=== PATIENT | female | born 1945 | race Caucasian/White ===

== ENCOUNTER → 2017-08-05 17:32 | Outpatient (CLI) | payer MEDICARE, SELFPAY ==
--- NOTE | 2017-08-05 17:35 | RAD_ITS ---
STUDY: X-RAY CHEST REASON FOR EXAM: Female, 71 years old. Cough TECHNIQUE: Frontal and lateral views COMPARISON: March 31, 2014 FINDINGS: The lungs are clear and expanded. There is no demonstrated pleural abnormality. Normal size heart. Normal mediastinum and pete. Normal visualized pulmonary arteries. Normal visualized aortic arch and descending thoracic aorta. Normal visualized thoracic spine. Normal visualized ribs, clavicles, and shoulders. There is no demonstrated abnormality of the visualized soft tissue structures of the upper abdomen. RAD/Chest PA and Lateral IMPRESSION: Normal x-ray examination of the chest. Electronically Signed: Rommel Salmeron DO at 18:33 EST Tel [phone], Service support ,
== END ==
PROVIDERS: Family Provider Internal Medicine; PCP Internal Medicine; Visit Provider Internal Medicine
DX: J18.1 Lobar pneumonia, unspecified organism (principal)
CPT/HCPCS: 71046

== ENCOUNTER → 2017-09-10 08:31 | Outpatient (CLI) | payer MEDICARE, SELFPAY ==
--- NOTE | 2017-09-10 08:35 | HPBI_ITS ---
MAMMOGRAPHY - BILATERAL SCREENING REASON FOR EXAM: Female, 71 years old. Routine annual screening examination. PERTINENT HISTORY: Grandmother with breast cancer. Remote left excisional breast biopsy. TECHNIQUE: Digital bilateral breast richard (3D mammographic acquisition) in the CC and MLO projections. 2-D mediolateral oblique (MLO) and craniocaudad (CC) views of both breasts were obtained. CAD: Full Field Digital Mammography with Computer Added Detection was performed. COMPARISON: Comparison is made with prior study dated September 03, 2016 and September 01, 2015. FINDINGS: Breast Composition: There are scattered areas of fibroglandular density. There are no dominant masses or suspicious calcifications. No other significant abnormalities are identified. There has been no significant change since the prior study. HPBI/SCREENING MAMM (CAD), BILAT IMPRESSION: Stable bilateral screening mammogram. Yearly follow-up mammogram recommended. (A) ASSESSMENT CATEGORY: BIRADS Category 1: Negative. A letter regarding these results will be sent to the patient by the facility within 30 days. Approximately 10% of breast cancers are not detected by mammography. A normal mammogram should not delay biopsy of a clinically suspicious abnormality. [id number] Electronically Signed: Miguel Haider MD at 10:19 EDT Tel [phone], Service support ,
--- NOTE | 2017-09-10 08:35 | HPBD_ITS ---
STUDY: DUAL ENERGY X-RAY ABSORPTIOMETRY / DXA REASON FOR EXAM: Female, 71 years old. The patient is postmenopausal. Loss of height. TECHNIQUE: Bone Mineral Density (BMD) measurements of lumbar spine and bilateral hips were obtained. COMPARISON: Comparison is made with prior study dated September 08, 2015. FINDINGS: Lumbar Spine (L1-L4): g/cm2 (0.973) / T-score (-1.7) / Z-score (0.0) Findings are suggestive of osteopenia with a moderate fracture risk. Left Femur Total: g/cm2 (0.668) / T-score (-2.7) / Z-score (-1.1) Left Femoral Neck: g/cm2 (0.616) / T-score (-3.0) / Z-score (-1.3) Right Femur Total: g/cm2 (0.705) / T-score (-2.4) / Z-score (-0.9) Right Femoral Neck: g/cm2 (0.666) / T-score (-2.7) / Z-score (-0.9) The T-Scores on the most recent prior examination were: Lumbar Spine (L1-L4): There has been worsening of bone density since the previous examination. Left Femur Total: which represents an improvement of 5.9%. Right Femur Total: which represents an improvement of 7.3%. HPBD/Dexa Bone Density Study (HP) IMPRESSION: The patient is considered osteoporotic as outlined below according to World Elian Organization (WHO) criteria with a high fracture risk. There has been improvement of bone density since the previous examination. Reference Information: The T-score is the number of standard deviations above or below the standard which is normal for young adults at their peak bone mineral density. The World Health Organization (WHO) interprets the T-scores as follows: Above -1 Normal bone density Between -1 and -2.5 Osteopenia Equal to / or below -2.5 Osteoporosis As a practical clinical guideline, osteopenia may be graded as follows: Mild -1 through -1.5 Moderate -1.6 through -2.0 Severe -2.1 through -2.4 The Z-score is the number of standard deviations above or below age-matched controls. A Z-score of less than -1.5 would be considered abnormal. References: 1. NIH Osteoporosis and Related Bone Diseases http://www.osteo.org 2. International Society for Clinical Densitometry http://www.iscd.org 3. National Osteoporosis Foundation http://www.nof.org Electronically Signed: Miguel Haider MD at 9:22 EDT Tel [phone], Service support ,
== END ==
PROVIDERS: Family Provider Internal Medicine; PCP Internal Medicine; Visit Provider Internal Medicine
DX: Z12.31 Encounter for screening mammogram for malignant neoplasm of breast (principal); Z78.0 Asymptomatic menopausal state
CPT/HCPCS: 77063; 77067; 77080

== ENCOUNTER → 2018-04-30 09:50 | Outpatient (CLI) | payer MEDICARE, SELFPAY ==
[2018-04-30 11:53] LABS: Absolute Lymphocyte Count 2.88 X10^3/ul (0.83-4.51); Absolute Neutrophil Count 2.1 X10^3/uL (2.0-7.7); Basophil# 0.04 X10^3/uL; Basophil% 0.7 % (0-1); Eosinophil# 0.08 X10^3/uL; Eosinophils% 1.4 % (0-5); Hematocrit 39.9 % (37-47); Hemoglobin 13.7 g/dl (12.0-15.0); Lymphocyte # 2.88 X10^3/ul (4.0); Lymphocyte % 51.3 % (19-41); Mean Corp Hgb Conc 34.3 g/gl (32-36); Mean Corpuscular Hgb 32.5 pg (27.0-32.0); Mean Corpuscular Volume 94.5 fL (81-99); Mean Platelet Vol. 10.9 fl (6.2-12.0); Monocyte# 0.52 X10^3/uL; Monocyte% 9.3 % (0-10); Neutrophil # 2.08 X10^3/uL (2.7-7.7); Neutrophil % 37.1 % (47-70); POSITIVE COUNT NO; POSITIVE DIFFERENTIAL NO; POSITIVE MORPHOLOGY NO; Platelet Count 165 K/mm3 (150-450); RBC Distribution Width CV 13.2 % (11.6-14.6); RBC Distribution Width SD 44.2 fl (35.1-43.9); Red Blood Count 4.22 M/mm3 (4.2-5.4); White Blood Count 5.6 K/mm3 (4.4-11.0)
[2018-04-30 12:13] LABS: Hemoglobin A1c 5.1 % (4.2-6.3)
[2018-04-30 12:16] LABS: Microalbumin,Random Urine < 5.0 mg/L (NO RANGE EST.)
[2018-04-30 12:27] LABS: ALB/GLOB Ratio 1.1 RATIO (0.9-2.4); AST(SGOT) 24 U/L (15-37); Alanine Aminotransfer ALT/SGPT 23 U/L (13-56); Albumin, Serum 3.7 g/dL (3.2-5.0); Alkaline Phosphatase 72 U/L (45-117); Anion Gap 7 (5-15); BUN 9 mg/dL (7-18); BUN/Creat Ratio 9.7 RATIO (10-20); CRP, High Sensitivity Cardiac 1.19 mg/L; Calcium,Total 8.7 mg/dL (8.5-10.1); Chloride 104 mmol/L (98-107); Cholesterol 208 mg/dL (200); Creatinine, Serum 0.93 mg/dL (0.55-1.02); EST Glomerular Filtration Rate 63 mL/min (>60); Est Glom Filt Rate - Afr Amer 76 mL/min (>60); Globulin 3.5 g/dL (2.2-4.2); Glucose 83 mg/dL (74-106); High Density Lipoprotein 72 mg/dL; Potassium 4.2 mmol/L (3.5-5.1); Protein, Total 7.2 g/dL (6.4-8.2); Sodium Level 138 mmol/L (136-145); Triglycerides 87 mg/dL; Very Low Density Lipoprotein 17 mg/dL (5-40)
[2018-04-30 12:31] LABS: Vitamin D,25 Hydroxy 24.8 ng/mL (29.95-100.01)
== END ==
PROVIDERS: Family Provider Internal Medicine; PCP Internal Medicine; Referring Provider Internal Medicine; Visit Provider Internal Medicine
DX: R73.01 Impaired fasting glucose (principal); E55.9 Vitamin D deficiency, unspecified; R79.82 Elevated C-reactive protein (CRP); E78.5 Hyperlipidemia, unspecified
CPT/HCPCS: 36415; 80053; 80061; 82043; 82306; 82570; 83036; 85025; 86141

== ENCOUNTER → 2018-07-08 12:12 | Outpatient (CLI) | payer MEDICARE, SELFPAY ==
--- NOTE | 2018-07-08 12:27 | RAD_ITS ---
STUDY: X-RAY LEFT FOOT, SECOND TOE REASON FOR EXAM: Pain and infection of the second toe, history of injury. TECHNIQUE: 3 view(s) of the toe were obtained. COMPARISON: Radiographs 09/09/2014. FINDINGS: There is osteopenia. Normal second metatarsus. Normal second metatarsophalangeal (M.T.P) joint. Normal interphalangeal joints of the second digit. Normal phalanges of the second digit. The soft tissue structures are unremarkable. RAD/Toe(s) Min 2 Views IMPRESSION: Osteopenia. No demonstrated fracture or osseous destruction of the second toe. Electronically Signed: Ryan Galan MD at 13:09 EST Tel , Service support ,
== END ==
PROVIDERS: Family Provider Internal Medicine; PCP Internal Medicine; Visit Provider Internal Medicine
DX: I73.00 Raynaud's syndrome without gangrene (principal)
CPT/HCPCS: 73660

== ENCOUNTER → 2018-09-12 12:46 | Outpatient (CLI) | payer MEDICARE, SELFPAY ==
--- NOTE | 2018-09-12 12:51 | CT_ITS ---
STUDY: CT CHEST/THORAX WITHOUT CONTRAST REASON FOR EXAM: Female, 72 years old. History of hyperlipidemia. Calcium scoring. RADIATION DOSAGE (If Supplied By Facility): CTDIvol = ( 12.19 ) mGy, DLP = ( 219.42 ) mGycm TECHNIQUE: Transaxial imaging was performed without the administration of intravenous contrast material. Multiplanar coronal and sagittal images were reformatted. Individualized dose optimization techniques were used for this CT. COMPARISON: None. FINDINGS: There is a 2.5 mm noncalcified nodule in the anterolateral right upper lobe on series 2 image 3, and a second 2.5 mm nodule seen in the lateral periphery of the inferior right lower lobe on image 31 There is no demonstrated pleural abnormality. Normal heart and pericardium. There are calcifications of the left anterior descending coronary artery, receiving a score of 98.5. Normal mediastinum. Normal hilar regions. Normal unenhanced pulmonary arteries. Normal aorta arch and descending thoracic aorta. There are multi-level degenerative changes of the lower thoracic spine. There is no demonstrated abnormality of the visualized upper abdomen. CT/CCTA Calcium Scoring IMPRESSION: 1. 2 small right lung nodules, as noted. Per Fleischner criteria, these do not require specific radiographic follow-up. The lung apices not fully included, and one might consider dedicated full chest CT to exclude the presence of other nodules. A comparison reading with CTA chest December 13, 2013 could also be made when that study becomes available. 2. Atherosclerotic calcification of left anterior descending coronary artery, receiving a score of 98.5 Electronically Signed: Meliton Phan MD at 16:03 EDT , Service support ,
--- NOTE | 2018-09-12 12:51 | CT_ITS ---
STUDY: CT CHEST/THORAX WITHOUT CONTRAST REASON FOR EXAM: Female, 72 years old. History of hyperlipidemia. Calcium scoring. RADIATION DOSAGE (If Supplied By Facility): CTDIvol = ( 12.19 ) mGy, DLP = ( 219.42 ) mGycm TECHNIQUE: Transaxial imaging was performed without the administration of intravenous contrast material. Multiplanar coronal and sagittal images were reformatted. Individualized dose optimization techniques were used for this CT. COMPARISON: None. FINDINGS: There is a 2.5 mm noncalcified nodule in the anterolateral right upper lobe on series 2 image 3, and a second 2.5 mm nodule seen in the lateral periphery of the inferior right lower lobe on image 31 There is no demonstrated pleural abnormality. Normal heart and pericardium. There are calcifications of the left anterior descending coronary artery, receiving a score of 98.5. Normal mediastinum. Normal hilar regions. Normal unenhanced pulmonary arteries. Normal aorta arch and descending thoracic aorta. There are multi-level degenerative changes of the lower thoracic spine. There is no demonstrated abnormality of the visualized upper abdomen. CT/Limited Chest CT w/CCTA IMPRESSION: 1. 2 small right lung nodules, as noted. Per Fleischner criteria, these do not require specific radiographic follow-up. The lung apices not fully included, and one might consider dedicated full chest CT to exclude the presence of other nodules. A comparison reading with CTA chest December 13, 2013 could also be made when that study becomes available. 2. Atherosclerotic calcification of left anterior descending coronary artery, receiving a score of 98.5 Electronically Signed: Meliton Phan MD at 16:03 EDT , Service support ,
[2018-09-12 13:07] VITALS: BP 141/65; PULSE 71; RESP 16; O2SAT 98; BMI 20.6
--- NOTE | 2018-09-12 16:33 | CA.SCORE ---
Calcium Scoring Date of Study:: 09/12/18 Coronary Calcium Scoring: Coronary calcium scoring. High-resolution computed tomographic imaging of the chest was performed on 09/12/2018 with particular attention paid to the coronary arteries. Images from the examination were analyzed for the presence and extent of coronary artery calcification using the coronary calcium quantification software. The patient tolerated the procedure well and there were no complications. Coronary artery Left main score 0 Left anterior descending artery 98.5 Left circumflex artery 0 Right coronary artery 0 Total Agatston score 98.5. The above score reflects a percentile ranking of between 50 and 75% of aged matched patients. A full evaluation of the cardiac risk should include an assessment of all conventional risk factors and the scores and percentile ranking's reported herein should be evaluated in this context. The above score is indicative of mild plaque burden with likely mild or minimal coronary atherosclerosis.
== END ==
PROVIDERS: Family Provider Internal Medicine; PCP Internal Medicine; Referring Provider Internal Medicine; Visit Provider Internal Medicine
DX: E78.5 Hyperlipidemia, unspecified (principal)
CPT/HCPCS: 75571; 76380

== ENCOUNTER → 2018-10-01 07:50 | Outpatient (CLI) | payer MEDICARE, SELFPAY ==
[2018-09-12 13:07] VITALS: BMI 20.6
--- NOTE | 2018-10-01 07:53 | CT_ITS ---
STUDY: CT CHEST WITH CONTRAST REASON FOR EXAM: Female, 72 years old. Follow-up of a lung nodule found on a calcium scoring test. RADIATION DOSAGE (If Supplied By Facility): CTDIvol = ( 5.75 ) mGy, DLP = ( 188.98 ) mGycm TECHNIQUE: Transaxial imaging was performed following intravenous administration of 100 IV Isovue 300. Individualized dose optimization techniques were used for this CT. COMPARISON: Calcium scoring CT scan 09/12/2018. FINDINGS: As seen on series 2, axial images 55-56, there is a 2.8 mm noncalcified right upper lobe lung nodule. As seen on axial image 2, there is a 3.8 x 2.8 noncalcified right lower lobe lung nodule (average diameter 3.3 mm). As seen on axial image 89, there is a 3.7 mm noncalcified right middle lobe lung nodule. There are small areas of fibrosis or atelectasis in the lung bases bilaterally. There is no demonstrated pleural abnormality. Normal heart and pericardium. There are coronary artery calcifications. Normal mediastinum. Normal hilar regions. Normal enhanced pulmonary arteries. Normal aorta arch and descending thoracic aorta. There are multi-level degenerative changes of the thoracic spine. There is no demonstrated abnormality of the visualized upper abdomen. CT/Chest WITH Contrast IMPRESSION: 3 noncalcified pulmonary nodules are identified, ranging up to 3.7 mm. Suggest follow-up noncontrast CT scan of the chest in one year to assess stability. No evidence for acute cardiopulmonary pathology. Electronically Signed: Shaquille Jensen MD at 5:17 EDT , Service support ,
== END ==
PROVIDERS: Family Provider Internal Medicine; PCP Internal Medicine; Referring Provider Internal Medicine; Visit Provider Internal Medicine
DX: R91.1 Solitary pulmonary nodule (principal)
CPT/HCPCS: 71260; Q9967

== ENCOUNTER → 2018-12-10 | Outpatient (CLI) | payer MEDICARE, SELFPAY ==
[2018-09-12 13:07] VITALS: BMI 20.6
--- NOTE | 2018-12-10 13:14 | BI_ITS ---
MAMMOGRAPHY - BILATERAL SCREENING REASON FOR EXAM: Female, 73 years old. Routine annual screening examination. PERTINENT HISTORY: Non-contributory. Remote left excisional breast biopsy. TECHNIQUE: Digital bilateral breast melody (3D mammographic acquisition) in the CC and MLO projections. 2-D mediolateral oblique (MLO) and craniocaudad (CC) views of both breasts were obtained. CAD: Full Field Digital Mammography with Computer Added Detection was performed. COMPARISON: Comparison is made with prior study dated September 10, 2017 and September 03, 2016. FINDINGS: Breast Composition: There are scattered areas of fibroglandular density. There are no dominant masses or suspicious calcifications. Stable small benign-appearing right axillary lymph nodes. No other significant abnormalities are identified. There has been no significant change since the prior study. BI/SCREEN MAMM (CAD) W/MELODY BILAT IMPRESSION: Stable bilateral screening mammogram. Yearly follow-up mammogram recommended. (A) ASSESSMENT CATEGORY: BIRADS Category 2: Benign. A letter regarding these results will be sent to the patient by the facility within 30 days. Approximately 10% of breast cancers are not detected by mammography. A normal mammogram should not delay biopsy of a clinically suspicious abnormality. [id number] Electronically Signed: Miguel Haider, at 14:49 EDT , Service support ,
== END | disposition home or self-care (01) ==
LOC: OPBI 13:12
PROVIDERS: Family Provider Internal Medicine; PCP Internal Medicine; Referring Provider Internal Medicine; Visit Provider Internal Medicine
DX: Z12.31 Encounter for screening mammogram for malignant neoplasm of breast (principal)
CPT/HCPCS: 77063; 77067

== ENCOUNTER → 2019-01-15 | Outpatient (CLI) | payer MEDICARE, SELFPAY ==
[2018-09-12 13:07] VITALS: BMI 20.6
[2019-01-15 11:57] LABS: Absolute Lymphocyte Count 2.91 X10^3/uL (0.83-4.51); Absolute Neutrophil Count 3.8 X10^3/uL (2.0-7.7); Basophil# 0.04 X10^3/uL; Basophil% 0.5 % (0-1); Eosinophil# 0.09 X10^3/uL; Eosinophils% 1.2 % (0-5); Hematocrit 41.2 % (37-47); Hemoglobin 13.9 g/dL (12.0-15.0); Lymphocyte # 2.91 X10^3/ul (4.0); Lymphocyte % 38.9 % (19-41); Mean Corp Hgb Conc 33.7 g/dL (32-36); Mean Corpuscular Hgb 32.2 pg (27.0-32.0); Mean Corpuscular Volume 95.4 fL (81-99); Mean Platelet Vol. 10.2 fl (6.2-12.0); Monocyte# 0.64 X10^3/uL; Monocyte% 8.5 % (0-10); NRBC Flagged by Analyzer 0 % (0-5); Neutrophil # 3.78 X10^3/uL (2.7-7.7); Neutrophil % 50.5 % (47-70); Platelet Count 166 K/mm3 (150-450); RBC Distribution Width CV 14.6 % (11.6-14.6); RBC Distribution Width SD 50.8 fl (35.1-43.9); Red Blood Count 4.32 M/mm3 (4.2-5.4); White Blood Count 7.5 K/mm3 (4.4-11.0)
[2019-01-15 12:43] LABS: ALB/GLOB Ratio 1.2 RATIO (0.9-2.4); AST(SGOT) 18 U/L (15-37); Alanine Aminotransfer ALT/SGPT 18 U/L (13-56); Albumin, Serum 3.6 g/dL (3.2-5.0); Alkaline Phosphatase 55 U/L (45-117); Anion Gap 6 (5-15); BUN 11 mg/dL (7-18); Calcium,Total 8.6 mg/dL (8.5-10.1); Chloride 104 mmol/L (98-107); Cholesterol 183 mg/dL (200); Creatinine, Serum 0.92 mg/dL (0.55-1.02); EST Glomerular Filtration Rate 64 mL/min (>60); Est Glom Filt Rate - Afr Amer 77 mL/min (>60); Glucose 92 mg/dL (74-106); High Density Lipoprotein 72 mg/dL; Potassium 4.3 mmol/L (3.5-5.1); Protein, Total 6.6 g/dL (6.4-8.2); Sodium Level 136 mmol/L (136-145); Triglycerides 104 mg/dL; Very Low Density Lipoprotein 21 mg/dL (5-40)
[2019-01-20 11:58] LABS: Thyroid Stim Hormone (TSH) 0.97 uIU/mL (0.358-3.74)
== END | disposition home or self-care (01) ==
LOC: LAB 10:56
PROVIDERS: Family Provider Internal Medicine; PCP Internal Medicine; Referring Provider Internal Medicine; Visit Provider Internal Medicine
DX: E78.5 Hyperlipidemia, unspecified (principal); R91.1 Solitary pulmonary nodule
CPT/HCPCS: 36415; 80053; 80061; 84443; 85025

== ENCOUNTER → 2019-01-20 | Outpatient (CLI) | payer MEDICARE, SELFPAY ==
[2018-09-12 13:07] VITALS: BMI 20.6
== END | disposition home or self-care (01) ==
LOC: PSN 13:55
PROVIDERS: Family Provider Internal Medicine; PCP Internal Medicine; Referring Provider Internal Medicine; Visit Provider Internal Medicine
DX: R07.9 Chest pain, unspecified (principal)
CPT/HCPCS: 93225; 93226

== ENCOUNTER → 2019-01-28 | Outpatient (CLI) | payer MEDICARE, SELFPAY ==
[2018-09-12 13:07] VITALS: BMI 20.6
[2019-01-21 15:01] VITALS: BMI 20.5
--- NOTE | 2019-01-28 13:57 | ECHOD_ITS ---
Reason For Study: Chest Pain Procedure This was a 2D Doppler, Color Flow transthoracic echocardiogram. Exam performed in department. Left Ventricle Normal size and thickness. The estimated ejection fraction is 60 %. No evidence for diastolic dysfunction. No regional wall motion abnormalities noted. Right Ventricle Normal RV size. Normal systolic function. Atria Normal left atrium. Normal right atrium. No doppler evidence for ASD. Mitral Valve There is no mitral valve stenosis. No mitral valve insufficiency. Tricuspid Valve There is no tricuspid stenosis. Trivial tricuspid valve insufficiency. Pulmonary artery systolic pressure is 25 mmHg. Aortic Valve Trisinus/trileaflet aortic valve. There is no aortic stenosis. No aortic valve insufficiency. Pulmonic Valve There is no pulmonic valvular stenosis. No pulmonic valve insufficiency. Great Vessels Normal aortic root. Pericardium/Pleural No pericardial effusion. MMode/2D Measurements & Calculations LVIDd: 3.6 cm IVSd: 0.79 cm Ao root diam: 2.9 cm LVIDs: 2.4 cm LVPWd: 0.79 cm RVDd: 3.0 cm FS: 33.0 % LAV(MOD-bp): 23.6 ml LVAd ap4: 16.8 cm2 SV(MOD-sp4): 28.1 ml LAV(MOD-bp) Indexed: 14.7 ml/m2 EDV(MOD-sp4): 40.3 ml LAV(MOD-sp2): 21.5 ml EDV(sp4-el): 40.6 ml LAV(MOD-sp4): 26.1 ml LVAs ap4: 8.3 cm2 ESV(MOD-sp4): 12.2 ml ESV(sp4-el): 12.5 ml EF(MOD-sp4): 69.7 % EF(sp4-el): 69.1 % SV(sp4-el): 28.0 ml LA A4 area: 11.7 cm2 LA dimension(2D): 3.0 cm RA A4 area: 10.3 cm2 Doppler Measurements & Calculations MV E max davon: 58.5 cm/sec Lat Peak E' Davon: 7.4 cm/sec Med Peak E' Davon: 5.3 cm/sec MV A max davon: 76.6 cm/sec E/E' lat: 7.9 E/E' med: 11.1 MV E/A: 0.76 Ao V2 max: 121.3 cm/sec LV V1 max: 99.3 cm/sec PA V2 max: 85.2 cm/sec Ao max P.9 mmHg LV V1 max P.9 mmHg Ao V2 mean: 83.3 cm/sec Ao mean P.1 mmHg Ao V2 VTI: 24.0 cm TR max davon: 226.7 cm/sec TR max P.6 mmHg Interpretation Summary The estimated ejection fraction is 60 %. No evidence for diastolic dysfunction. Ordering Physician: Jane Sifuentes Referring Physician: Jane Sifuetnes Performed By: Meenu Bar, RYAN, RVT
== END | disposition home or self-care (01) ==
LOC: CVS 13:55
PROVIDERS: Family Provider Internal Medicine; PCP Internal Medicine; Referring Provider Internal Medicine; Visit Provider Internal Medicine
DX: R07.9 Chest pain, unspecified (principal); R00.2 Palpitations
CPT/HCPCS: 93306

== ENCOUNTER → 2019-02-05 | Outpatient (CLI) | payer MEDICARE, SELFPAY ==
[2019-01-21 15:01] VITALS: BMI 20.5
[2019-02-04 13:04] VITALS: BMI 20.7
--- NOTE | 2019-02-05 16:07 | STRESSREP ---
Stress Test Report Date: February 05, 2019 Procedure: Exercise tolerance test/imaging study Indications: Chest pain Consent: Per the patient Procedure: The patient exercised on a Adam protocol for 7 minutes achieving a peak heart rate of 116 bpm (78 % predicted maximal heart rate) with a peak blood pressure 142/68 mmHg and a peak MET capacity of 8.5 METs. The baseline ECG demonstrated normal sinus rhythm. The peak exercise ECG demonstrated sinus tachycardia with about half to 1 mm upsloping to horizontal ST depressions in the inferior and lateral leads. EKG during recovery revealed ST changes similar to peak exercise initially and then return to baseline [There were no cardiac dysrhythmias pretest, during exercise, or recovery]. The functional capacity was considered normal for age. There was [no complaint of chest discomfort during exercise or recovery]. The examination was discontinued secondary to fatigue. Impression: 1. Patient reached only 78% of maximal age-predicted heart rate which decreases the sensitivity of this test 2. Stress test is negative for exercise-induced EKG changes of ischemia 3. The test test is negative for exercise-induced chest pain 4. Functional capacity is normal for age 5. Nuclear images pending Myocardial perfusion imaging study: Technique: The patient was injected with 10.5 mCi of technetium 99m Cardiolite and subsequently rest SPECT Cardiolite nuclear imaging was obtained in the horizontal long, vertical long, and short axis views. The patient exercised on a Adam protocol. Please see above for details. The patient was injected with 32.1 mCi of technetium 99m Cardiolite and subsequently stress SPECT Cardiolite nuclear imaging was obtained in the horizontal long, vertical long, and short axis views. A gated Cardiolite study at peak stress was obtained. Interpretation: Rest and stress SPECT Cardiolite nuclear imaging status post realignment, normalization, and attenuation correction, demonstrates normal myocardial radioisotope uptake in both the rest and stress images. The gated Cardiolite study demonstrates no regional wall motion abnormalities. The reported LVEF is greater than 70 %. Impression: 1. There is no evidence of significant ischemia or infarction. 2. The gated Cardiolite study reports an LVEF of greater than 70 %. This note was generated with [employer] software. It may contain incorrect words, spelling, and punctuation that were not noted in checking the note before signing.
== END | disposition home or self-care (01) ==
PROVIDERS: Family Provider Internal Medicine; PCP Internal Medicine; Referring Provider Specialist; Visit Provider Specialist
DX: R07.9 Chest pain, unspecified (principal)
CPT/HCPCS: 78452; 93017; A9500; A4216

== ENCOUNTER → 2020-02-22 16:29 | Outpatient (CLI) | payer MEDICARE, SELFPAY ==
[2019-04-15 13:28] VITALS: BMI 20.5
--- NOTE | 2020-02-22 16:43 | RAD_ITS ---
STUDY: X-RAY - CERVICAL SPINE REASON FOR EXAM: Female, 74 years old. Neck pain x3 weeks. TECHNIQUE: 5 view(s) of the cervical spine were obtained. COMPARISON: None FINDINGS: Normal anterior atlantoaxial articulation. Normal odontoid process. Normal cervical lordosis. Normal vertebral bodies and endplates. Normal disc space heights. Normal visualized intervertebral neuroforamina. The soft tissue structures are unremarkable. RAD/Cerv Spine 4 or 5 Views IMPRESSION: Normal x-ray examination of the visualized cervical spine. Electronically Signed: Tavon Mcclellan MD at 23:37 EDT Tel , Service support ,
[2020-02-22 17:31] LABS: Absolute Lymphocyte Count 3.38 X10^3/uL (0.83-4.51); Absolute Neutrophil Count 3.7 X10^3/uL (2.0-7.7); Basophil# 0.04 X10^3/uL; Basophil% 0.5 % (0-1); Eosinophil# 0.06 X10^3/uL; Eosinophils% 0.8 % (0-5); Hemoglobin 13.2 g/dL (12.0-15.0); Lymphocyte # 3.38 X10^3/ul (4.0); Lymphocyte % 42.3 % (19-41); Mean Corp Hgb Conc 33.8 g/dL (32-36); Mean Corpuscular Hgb 31.6 pg (27.0-32.0); Mean Corpuscular Volume 93.3 fL (81-99); Mean Platelet Vol. 10.8 fl (6.2-12.0); Monocyte# 0.76 X10^3/uL; Monocyte% 9.5 % (0-10); NRBC Flagged by Analyzer 0 % (0-5); Neutrophil # 3.74 X10^3/uL (2.7-7.7); Neutrophil % 46.8 % (47-70); Platelet Count 179 K/mm3 (150-450); RBC Distribution Width CV 12.7 % (11.6-14.6); RBC Distribution Width SD 43.6 fl (35.1-43.9); Red Blood Count 4.18 M/mm3 (4.2-5.4)
[2020-02-22 18:17] LABS: AST(SGOT) 19 U/L (15-37); Alanine Aminotransfer ALT/SGPT 18 U/L (13-56); Albumin, Serum 3.7 g/dL (3.2-5.0); Alkaline Phosphatase 66 U/L (45-117); Anion Gap 5 (5-15); BUN 10 mg/dL (7-18); BUN/Creat Ratio 11.7 RATIO (10-20); CRP 5.42 mg/L (0.0-3.0); Chloride 101 mmol/L (98-107); Creatinine, Serum 0.86 mg/dL (0.55-1.02); EST Glomerular Filtration Rate 69 mL/min (>60); Est Glom Filt Rate - Afr Amer 84 mL/min (>60); Globulin 3.8 g/dL (2.2-4.2); Glucose 79 mg/dL (74-106); Potassium 3.8 mmol/L (3.5-5.1); Protein, Total 7.5 g/dL (6.4-8.2); Rheumatoid Factor < 10.0 IU/mL (<15); Sodium Level 134 mmol/L (136-145); Thyroid Stim Hormone (TSH) 1.31 uIU/mL (0.358-3.74)
[2020-02-22 20:16] LABS: Erythrocyte Sedimentation Rate 19 mm/hr (0-30)
[2020-02-24 17:23] LABS: ANTINUCLEAR ANTIBODIES DIRECT Negative (Negative)
== END ==
PROVIDERS: PCP Internal Medicine; Referring Provider Internal Medicine; Visit Provider Internal Medicine
DX: M54.12 Radiculopathy, cervical region (principal); M25.50 Pain in unspecified joint; I49.9 Cardiac arrhythmia, unspecified
CPT/HCPCS: 36415; 72050; 80053; 84443; 85025; 85652; 86038; 86140; 86431

== ENCOUNTER → 2020-03-15 13:47 | Outpatient (CLI) | payer MEDICARE, SELFPAY ==
[2019-04-15 13:28] VITALS: BMI 20.5
--- NOTE | 2020-03-15 13:49 | CT_ITS ---
STUDY: CT CHEST WITHOUT CONTRAST REASON FOR EXAM: Female, 74 years old. LUNG NODULE RADIATION DOSAGE (If Supplied By Facility): CTDIvol = ( 6.22 ) mGy, DLP = ( 208.82 ) mGycm TECHNIQUE: Transaxial imaging was performed without the administration of intravenous contrast material. Multiplanar coronal and sagittal images were reformatted. Individualized dose optimization techniques were used for this CT. COMPARISON: Comparison is made with prior examination dated 10/01/2018. FINDINGS: Stable 2.5 mm noncalcified nodule in the right upper lobe anteriorly as seen on axial image #112. Stable 3.5 mm noncalcified nodule in the right middle lobe adjacent to the minor fissure. There is no demonstrated pleural abnormality. There are calcifications of the coronary arteries. There are multiple small lymph nodes within the mediastinum, which are normal in size and morphology most compatible with reactive lymph hyperplasia. Normal hilar regions. Normal unenhanced pulmonary arteries. Normal aorta arch and descending thoracic aorta. There are multi-level degenerative changes of the thoracic spine. There is no demonstrated abnormality of the visualized upper abdomen. CT/Chest without Contrast IMPRESSION: Stable examination. 12 month follow-up is recommended Electronically Signed: Miguel Haider, at 15:05 EDT , Service support ,
== END ==
PROVIDERS: PCP Internal Medicine; Referring Provider Internal Medicine; Visit Provider Internal Medicine
DX: R91.1 Solitary pulmonary nodule (principal)
CPT/HCPCS: 71250

== ENCOUNTER 2020-03-28 13:00 | Outpatient (RCR) | payer MEDICARE, SELFPAY ==
[2019-04-15 13:28] VITALS: BMI 20.5
--- NOTE | 2020-03-02 13:01 | HP.PTEVAL ---
Patient's Visit Information DIEGO ALLEN is a 74 year old F referred to Physical Therapy by Dr. Jane Sifuentes DO with a diagnosis of CERVICAL RADICULOPATHY. Date of Evaluation: 03/02/20 Physical Therapist: Holly Richmond PT, Cert MDT - Visit Plan Frequency: 2-3x /Week Duration: 4-6 Weeks Plan: US TO LEFT CREVICAL REGION, POSTURE CORRECTION/STRENGTHENING, INSTRUCTION IN APPROPRIATE BODY MECHANICS AND ACTIVITY MODIFICATIONS. ZECHARIAH UE ROM, STRETCHING AND STRENGTHENING. HEP INSTRUCTION FOLLOW TOLERATED/INDICATED: REP RET IN SITTING. REP RET IN LYING. SCAP SQUEEZES. DEEP NECK FLEXOR LIFT. PRONE W'S. UE WALL SLIDES. PRONE ROWS. UE TBAND WALL WALKS. ANTERIOR/MIDDLE SCALENE STRETCH. UPPER TRAP STRETCH. LEVATOR SCAPULAE STRETCH. CHEST/PEC MAJOR AND MINOR STRETCH - Subjective Diagnosis: CERVICAL RADICULOPATHY. 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 Present symptoms: LEFT NECK PAIN/TUG. DID HAVE SOME LEFT UE TINGLING BUT IT WENT AWAY ABOUT A WEEK AGO AFTER STARTING PRESCRIBED PREDNISONE. Present since: ABOUT 3 WEEKS AGO. Pain Scale: Worst - 2/10 Least - 0/10. Currently: 2/10 TURNING HEAD TO THE LEFT. Commenced as a result of: PATIENT REPORTS THE PAIN STARTED AFTER BEING ON A [employer]OL[employer] CART DEVICE BOUNCING IN [place] AND THEN BEING ON A BOAT ON [employer] A FEW DAYS LATER. Symptoms at onset: LEFT NECK AND LEFT UE. Worse: TURNING HEAD TO THE LEFT, REACHING OUT. Better: MID LINE. Disturbed sleep: NO. Previous history/Previous treatment: H/O PT ABOUT 10 YEARS AGO FOR NECK/LEFT SHOULDER PROBLEM THAT COMPLETELY RESOLVED. This episode: PREDNISONE - TODAY WAS LAST DAY. Dizziness: NO. Tinnitis: NO. Nausea: NO. Shortness of Breath: NO. Difficulty Swollowing: NO. Gait: NORMAL. Accidents: NO. Unexplained weight loss: NO. Imaging: RECENT CERVICAL X-RAY - NORMAL - SEE [facility] EMR. PMH/Recent major surgery: OSTEOPOROSIS - Objective Sitting Posture/Standing Posture: FAIR. FORWARD HEAD. ROUNDED SHOULDERS. Active Correction of posture: NE. Other Observations: INDEP GAIT AND TRANSFERS. PLEASANT AND COOPERATIVE TO WORK WITH. Motor deficit: ZECHARIAH UE STRENGTH GROSSLY 5/5 WITH MMT'ING EXCEPT SCAPULAE 4/5. PATIENT DENIES INCREASED PAIN WITH TESTING. RIGHT HANDED WITH RIGHT DELINQUENT TAX COLLECTOR STRENGTH OF 45 LBS AND LEFT 30 LBS. Sensory deficit: ZECHARIAH UE LIGHT TOUCH SENSATION INTACT AND SYMMETRICAL. ROM deficit: ZECHARIAH UE ROM WFL. Reflexes: 2/3 ZECHARIAH UE'S. Dural Signs: NEGATIVE ZECHARIAH UE'S. Cervical Mvmt Loss: Flex: NIL. Pro: NIL. Ext: MOD. Ret: MARYSOL. RSB: MOD. LSB: MARYSOL - PRODUCES LEFT NECK PAIN. NW A RESULT. R Rot: MOD. L Rot: MARYSOL - PRODUCES LEFT NECK PAIN. NW A RESULT. Postural strength: FAIR. Palpation: TENDERNESS WITH PALPATION OF LEFT CERVICAL UPPER TRAP AND PARASPINALS. TREATMENT: NEUROMUSCULAR REEDUCATION - RETRAINING OF MVMT AND POSTURE FOR SITTING, LYING AND STANDING ACTIVITIES. - Goals Goal 1:: DECREASE C/O NECK AND UE SX'S Goal Time Frame: 4-6 Weeks Goal 2:: IMPROVE HEAD TURNING, REACHING AND DRIVING FUNCTION Goal Time Frame: 4-6 Weeks Goal 3:: INSTRUCT IN PROPHYLAXIS Goal Time Frame: 4-6 Weeks - Anticipated Interventions Patient/Client Instruction: Educate patient on: Condition, Plan of Care, Risk Factors, Benefits of Fitness Program For the Purpose of:: To improve self management Therapeutic Exercise to Include: Strength training, Postural training, Flexibilty training, Neuromotor development, Active ROM, Scapular Strength/Stabilization For the Purpose of:: To decrease pain, To improve muscle performance and motor function, To increase tolerance to activity/condition/position, To improve ability of physical actions for home/community/work/leisure Cryotherapy (ice pack, ice massage): Yes Thermo therapy (hot pack): Yes Ultrasound (thermal/non thermal): Yes For the Purpose of:: To decrease pain, To decrease swelling/inflammation, To increase ROM, To improve nutrient delivery to tissue Thank you for the opportunity to evaluate your patient. For Medicare and Medicare HMO plans, please review the plan of care and approve it. It will need to be FAXED BACK to us at [phone] for Medicare purposes. For Medicare only, by signing this I certify the plan of care. Please let me know if there are questions or concerns regarding this plan of care. Physician Signature: Date:
--- NOTE | 2020-03-28 13:46 | HP.PTDCSUM_ITS ---
It has been my pleasure to treat DIEGO ALLEN referred by Dr. Jane Sifuentes DO, with the diagnosis of CERVICAL RADICULOPATHY for a total of 9 visit(s). Discharge Date: 03/28/20 Please see the following information for a summary of their discharge status. Subjective: PATIENT REPORTS SHE ALSO NOTICED THIS MORNING THAT SHE DOESN'T GET PAIN WHEN SHE PUTS HER COAT ON LIKE SHE USE TO. PATIENT REPORTS FEELING OK BEING DISCHARGED BECAUSE SHE HAS THE HOME EX'S NOW. LEFT NECK Pain Intensity (Out of 10): 0 UPPER BACK Pain Intensity (Out of 10): 0 % Improvement: 90 Objective/Function: PATIENT WAS SEEN TODAY FOR RE-ASSESSMENT OF PROGRESS TOWARD THE SET PT GOALS AND THE NEED FOR FURTHER PHYSICAL THERAPY VS READINESS FOR DISCHARGE. PATIENT HAS MADE GREAT PROGRESS WITH PT AND ALL GOALS HAVE BEEN MET. SHE IS INDEP WITH A HEP AND TOLERATED THE ADDITION OF YTB WALL WALKS WELL TODAY. UPON EXAM TODAY: Motor deficit: ZECHARIAH UE STRENGTH GROSSLY 5/5 WITH MMT'ING. RIGHT HANDED WITH RIGHT [facility] STRENGTH OF 45 LBS AND LEFT 30 LBS. Sensory deficit: ZECHARIAH UE LIGHT TOUCH SENSATION INTACT AND SYMMETRICAL. ROM deficit: ZECHARIAH UE ROM WFL. Dural Signs: NEGATIVE ZECHARIAH UE'S. Cervical Mvmt Loss: Flex: NIL. Pro: NIL. Ext: MOD. Ret: MARYSOL. RSB: MOD. LSB: MARYSOL - PRODUCES LEFT NECK PAIN. NW A RESULT. R Rot: MOD. L Rot: MARYSOL - PRODUCES LEFT NECK PAIN. NW A RESULT. Postural strength: FAIR. Palpation: TENDERNESS WITH PALPATION OF LEFT CERVICAL UPPER TRAP AND PARASPINALS. Goal 1:: DECREASE C/O NECK AND UE SX'S Goal 2:: IMPROVE HEAD TURNING, REACHING AND DRIVING FUNCTION Goal 3:: INSTRUCT IN PROPHYLAXIS Plan: D/C TO HEP. PATIENT AGREEABLE. If there are questions or concerns regarding this patient's physical therapy, please feel free to call me at [phone]. Thank you for the referral of this patient. Sincerely, Holly Richmond, PT, Cert MDT
== END 2020-03-28 19:00 | disposition home or self-care (01) ==
LOC: PT 13:00
PROVIDERS: PCP Internal Medicine; Referring Provider Internal Medicine; Visit Provider Internal Medicine
DX: M54.12 Radiculopathy, cervical region (principal)
CPT/HCPCS: 97035; 97110; 97112; 97140; 97162; 97164; 97530

== ENCOUNTER → 2020-06-15 10:15 | Outpatient (CLI) | payer MEDICARE, SELFPAY ==
[2019-04-15 13:28] VITALS: BMI 20.5
--- NOTE | 2020-06-15 10:17 | BI_ITS ---
MAMMOGRAPHY - BILATERAL SCREENING REASON FOR EXAM: Female, 74 years old. Routine annual screening examination. PERTINENT HISTORY: Non-contributory. Remote left excisional breast biopsy. TECHNIQUE: Digital bilateral breast melody (3D mammographic acquisition) in the CC and MLO projections. 2-D mediolateral oblique (MLO) and craniocaudad (CC) views of both breasts were obtained. CAD: Full Field Digital Mammography with Computer Added Detection was performed. COMPARISON: Comparison is made with prior study dated 12/10/2018 and 09/10/2017. FINDINGS: Breast Composition: There are scattered areas of fibroglandular density. There are no dominant masses or suspicious calcifications. Stable benign appearing bilateral axillary lymph nodes. No other significant abnormalities are identified. There has been no significant change since the prior study. BI/SCREEN MAMM (CAD) W/MELODY BILAT IMPRESSION: Stable bilateral screening mammogram. Yearly follow-up mammogram recommended. (A) ASSESSMENT CATEGORY: BIRADS Category 2: Benign. A letter regarding these results will be sent to the patient by the facility within 30 days. Approximately 10% of breast cancers are not detected by mammography. A normal mammogram should not delay biopsy of a clinically suspicious abnormality. [id number] Electronically Signed: Miguel Haider, at 11:11 EST , Service support ,
--- NOTE | 2020-06-15 10:20 | BD_ITS ---
STUDY: DUAL ENERGY X-RAY ABSORPTIOMETRY / DXA REASON FOR EXAM: Female, 74 years old. 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 COMPARISON: Comparison is made with prior study dated 09/10/2017. FINDINGS: Lumbar Spine (L1-L4): g/cm2 (0.999) / T-score (-1.5) / Z-score (0.2) Findings are suggestive of osteopenia with a moderate fracture risk. Left Femur Total: g/cm2 (0.665) / T-score (-2.7) / Z-score (-1.0) Left Femoral Neck: g/cm2 (0.590) / T-score (-3.2) / Z-score (-1.3) Right Femur Total: g/cm2 (0.665) / T-score (-2.7) / Z-score (-1.0) Right Femoral Neck: g/cm2 (0.651) / T-score (-2.8) / Z-score (-0.9) The T-Scores on the most recent prior examination were: Lumbar Spine (L1-L4): There has been improvement of bone density since the previous examination. Left Femur Total: which represents a worsening of 0.4%. Right Femur Total: which represents a worsening of 5.7%. BD/Dexa Bone Density Study IMPRESSION: The patient is considered osteoporotic as outlined below according to World Elian Organization (WHO) criteria with a high fracture risk. There has been worsening of bone density since the previous examination. Reference Information: The T-score is the number of standard deviations above or below the standard which is normal for young adults at their peak bone mineral density. The World Health Organization (WHO) interprets the T-scores as follows: Above -1 Normal bone density Between -1 and -2.5 Osteopenia Equal to / or below -2.5 Osteoporosis As a practical clinical guideline, osteopenia may be graded as follows: Mild -1 through -1.5 Moderate -1.6 through -2.0 Severe -2.1 through -2.4 The Z-score is the number of standard deviations above or below age-matched controls. A Z-score of less than -1.5 would be considered abnormal. References: 1. NIH Osteoporosis and Related Bone Diseases www osteo.org 2. International Society for Clinical Densitometry www iscd.org 3. National Osteoporosis Foundation www nof.org Electronically Signed: Miguel Haider, at 7:34 EST , Service support ,
== END ==
PROVIDERS: PCP Internal Medicine; Referring Provider Internal Medicine; Visit Provider Internal Medicine
DX: Z12.31 Encounter for screening mammogram for malignant neoplasm of breast (principal); Z78.0 Asymptomatic menopausal state
CPT/HCPCS: 77063; 77067; 77080

== ENCOUNTER → 2020-11-11 | Outpatient (CLI) | payer MEDICARE, SELFPAY ==
[2019-04-15 13:28] VITALS: BMI 20.5
[2020-11-15 14:10] LABS: Albumin 3.9 g/dL (2.9-4.4); Alpha-1-Globulins 0.3 g/dL (0.0-0.4); Alpha-2-Globulins 0.7 g/dL (0.4-1.0); Immunoglobulin A 473 mg/dL (64-422); Immunoglobulin G 845 mg/dL (586-1602); PROEL- TOTAL PROTEIN 6.9 g/dL (6.0-8.5)
[2020-11-15 18:54] LABS: Immunoglobulin M 22 mg/dL (26-217)
== END | disposition home or self-care (01) ==
LOC: LABSPEC 15:17
PROVIDERS: PCP Internal Medicine; Visit Provider Internal Medicine Hematology & Oncology
DX: D47.2 Monoclonal gammopathy (principal)
CPT/HCPCS: 82784; 84165; 86334

== ENCOUNTER → 2021-01-26 11:55 | Outpatient (CLI) | payer MEDICARE, SELFPAY ==
[2019-04-15 13:28] VITALS: BMI 20.5
[2021-01-26 12:52] LABS: Erythrocyte Sedimentation Rate 30 mm/hr (0-30)
[2021-01-26 12:54] LABS: Absolute Lymphocyte Count 3.24 X10^3/uL (0.83-4.51); Absolute Neutrophil Count 4.3 X10^3/uL (2.0-7.7); Basophil# 0.04 X10^3/uL; Basophil% 0.5 % (0-1); Eosinophil# 0.06 X10^3/uL; Eosinophils% 0.7 % (0-5); Hematocrit 38.9 % (37-47); Hemoglobin 13.4 g/dL (12.0-15.0); Lymphocyte # 3.24 X10^3/ul (0.83-4.51); Lymphocyte % 38.3 % (19-41); Mean Corp Hgb Conc 34.4 g/dL (32-36); Mean Corpuscular Hgb 31.5 pg (27.0-32.0); Mean Corpuscular Volume 91.5 fL (81-99); Mean Platelet Vol. 10.4 fl (6.2-12.0); Monocyte# 0.75 X10^3/uL; Monocyte% 8.9 % (0-10); NRBC Flagged by Analyzer 0 % (0-5); Neutrophil # 4.34 X10^3/uL (2.7-7.7); Neutrophil % 51.2 % (47-70); POSITIVE MORPHOLOGY YES; Platelet Count 180 K/mm3 (150-450); RBC Distribution Width CV 13.8 % (11.6-14.6); RBC Distribution Width SD 46.6 fl (35.1-43.9); Red Blood Count 4.25 M/mm3 (4.2-5.4); White Blood Count 8.5 K/mm3 (4.4-11.0)
[2021-01-26 12:56] LABS: Differential Indicated SCAN CRITERIA MET
[2021-01-26 13:15] LABS: ALB/GLOB Ratio 0.9 RATIO (0.9-2.4); AST(SGOT) 24 U/L (15-37); Alanine Aminotransfer ALT/SGPT 26 U/L (13-56); Albumin, Serum 3.7 g/dL (3.2-5.0); Alkaline Phosphatase 64 U/L (45-117); Anion Gap 10 (5-15); BUN 11 mg/dL (7-18); BUN/Creat Ratio 15.5 RATIO (10-20); CRP 3.36 mg/L (0.0-3.0); Calcium,Total 8.9 mg/dL (8.5-10.1); Chloride 100 mmol/L (98-107); Cholesterol 185 mg/dL (200); Creatinine, Serum 0.71 mg/dL (0.55-1.02); EST Glomerular Filtration Rate 85 mL/min (>60); Est Glom Filt Rate - Afr Amer 103 mL/min (>60); Globulin 3.9 g/dL (2.2-4.2); Glucose 95 mg/dL (74-106); High Density Lipoprotein 70 mg/dL; Potassium 4.2 mmol/L (3.5-5.1); Protein, Total 7.6 g/dL (6.4-8.2); Rheumatoid Factor < 10.0 IU/mL (<15); Sodium Level 134 mmol/L (136-145); Triglycerides 91 mg/dL; Very Low Density Lipoprotein 18 mg/dL (5-40)
[2021-01-26 13:23] LABS: Hemoglobin A1c 5.1 % (3.8-5.6)
[2021-01-28 08:34] LABS: CCP IgG Antibodies 7 units (0-19)
== END ==
PROVIDERS: PCP Internal Medicine; Visit Provider Internal Medicine
DX: R76.8 Other specified abnormal immunological findings in serum (principal); R73.01 Impaired fasting glucose; L98.2 Febrile neutrophilic dermatosis [Sweet]; E78.5 Hyperlipidemia, unspecified
CPT/HCPCS: 36415; 80053; 80061; 83036; 85025; 85652; 86140; 86200; 86431

== ENCOUNTER → 2021-02-15 13:06 | Outpatient (CLI) | payer MEDICARE, SELFPAY ==
[2021-02-15 14:38] LABS: Anion Gap 6 (5-15); BUN 11 mg/dL (7-18); BUN/Creat Ratio 13.8 RATIO (10-20); Calcium,Total 9.1 mg/dL (8.5-10.1); Chloride 100 mmol/L (98-107); EST Glomerular Filtration Rate 75 mL/min (>60); Est Glom Filt Rate - Afr Amer 90 mL/min (>60); Glucose 91 mg/dL (74-106); Potassium 4.4 mmol/L (3.5-5.1); Sodium Level 133 mmol/L (136-145)
== END ==
PROVIDERS: PCP Internal Medicine; Referring Provider Internal Medicine; Visit Provider Internal Medicine
DX: E87.1 Hypo-osmolality and hyponatremia (principal)
CPT/HCPCS: 36415; 80048

== ENCOUNTER → 2021-02-20 15:00 | Outpatient (CLI) | payer MEDICARE, SELFPAY ==
[2021-02-20 17:36] LABS: Urine Sodium 46 mmol/L (Not Establ.)
[2021-02-20 18:06] LABS: Sodium Level 135 mmol/L (136-145); Thyroid Stim Hormone (TSH) 1.07 uIU/mL (0.358-3.74)
[2021-02-20 22:03] LABS: Osmolality, Serum 282 mOsm/KG (280-301)
[2021-02-20 22:04] LABS: Osmolality, Urine 369 mOsm/KG
== END ==
PROVIDERS: PCP Internal Medicine; Referring Provider Internal Medicine; Visit Provider Internal Medicine
DX: E87.1 Hypo-osmolality and hyponatremia (principal)
CPT/HCPCS: 36415; 83930; 83935; 84295; 84300; 84443

== ENCOUNTER → 2021-04-27 10:47 | Outpatient (CLI) | payer MEDICARE, SELFPAY ==
[2021-04-27 12:34] LABS: Absolute Lymphocyte Count 3.28 X10^3/uL (0.83-4.51); Absolute Neutrophil Count 3.2 X10^3/uL (2.0-7.7); Basophil# 0.04 X10^3/uL; Basophil% 0.5 % (0-1); Eosinophil# 0.09 X10^3/uL; Eosinophils% 1.2 % (0-5); Hematocrit 42.8 % (37-47); Hemoglobin 14.1 g/dL (12.0-15.0); Lymphocyte # 3.28 X10^3/ul (0.83-4.51); Mean Corp Hgb Conc 32.9 g/dL (32-36); Mean Corpuscular Volume 94.1 fL (81-99); Mean Platelet Vol. 10.5 fl (6.2-12.0); Monocyte# 0.67 X10^3/uL; Monocyte% 9.2 % (0-10); NRBC Flagged by Analyzer 0 % (0-5); Neutrophil # 3.19 X10^3/uL (2.7-7.7); Neutrophil % 43.8 % (47-70); Platelet Count 154 K/mm3 (150-450); RBC Distribution Width CV 13.7 % (11.6-14.6); RBC Distribution Width SD 46.9 fl (35.1-43.9); Red Blood Count 4.55 M/mm3 (4.2-5.4); White Blood Count 7.3 K/mm3 (4.4-11.0)
[2021-04-27 13:19] LABS: ALB/GLOB Ratio 0.9 RATIO (0.9-2.4); AST(SGOT) 23 U/L (15-37); Alanine Aminotransfer ALT/SGPT 19 U/L (13-56); Albumin, Serum 3.6 g/dL (3.2-5.0); Alkaline Phosphatase 75 U/L (45-117); Anion Gap 6 (5-15); BUN 11 mg/dL (7-18); BUN/Creat Ratio 11.7 RATIO (10-20); Calcium,Total 9.1 mg/dL (8.5-10.1); Chloride 105 mmol/L (98-107); Cholesterol 193 mg/dL (200); Creatinine, Serum 0.94 mg/dL (0.55-1.02); EST Glomerular Filtration Rate 62 mL/min (>60); Est Glom Filt Rate - Afr Amer 74 mL/min (>60); Glucose 101 mg/dL (74-106); High Density Lipoprotein 73 mg/dL; Potassium 4.1 mmol/L (3.5-5.1); Protein, Total 7.6 g/dL (6.4-8.2); Sodium Level 137 mmol/L (136-145); Triglycerides 103 mg/dL; Very Low Density Lipoprotein 21 mg/dL (5-40)
[2021-04-27 14:10] LABS: Vitamin D,25 Hydroxy > 150.0 ng/mL (29.95-100.01)
== END ==
PROVIDERS: PCP Internal Medicine; Visit Provider Internal Medicine
DX: M81.0 Age-related osteoporosis without current pathological fracture (principal); E78.5 Hyperlipidemia, unspecified; E87.1 Hypo-osmolality and hyponatremia
CPT/HCPCS: 36415; 80053; 80061; 82306; 85025

== ENCOUNTER 2021-07-25 15:10 | Outpatient (CLI) | payer MEDICARE, SELFPAY ==
[2021-07-25 15:40] LABS: Absolute Lymphocyte Count 3.35 X10^3/uL (0.83-4.51); Absolute Neutrophil Count 4.2 X10^3/uL (2.0-7.7); Basophil# 0.06 X10^3/uL; Basophil% 0.7 % (0-1); Eosinophil# 0.15 X10^3/uL; Eosinophils% 1.8 % (0-5); Hematocrit 37.8 % (37-47); Hemoglobin 13.6 g/dL (12.0-15.0); Lymphocyte # 3.35 X10^3/ul (0.83-4.51); Lymphocyte % 40.1 % (19-41); Mean Corpuscular Hgb 31.4 pg (27.0-32.0); Mean Corpuscular Volume 87.3 fL (81-99); Mean Platelet Vol. 9.9 fl (6.2-12.0); Monocyte# 0.52 X10^3/uL; Monocyte% 6.2 % (0-10); NRBC Flagged by Analyzer 0 % (0-5); Neutrophil # 4.16 X10^3/uL (2.7-7.7); Neutrophil % 49.9 % (47-70); POSITIVE MORPHOLOGY YES; Platelet Count 242 K/mm3 (150-450); RBC Distribution Width CV 13.2 % (11.6-14.6); RBC Distribution Width SD 42.3 fl (35.1-43.9); Red Blood Count 4.33 M/mm3 (4.2-5.4); White Blood Count 8.4 K/mm3 (4.4-11.0)
--- NOTE | 2021-07-25 15:49 | RAD_ITS ---
STUDY: X-RAY CHEST REASON FOR EXAM: Female, 75 years old. Dyspnea on exertion. Shortness of breath. History of COVID 2 weeks ago. TECHNIQUE: Single AP portable view of the chest. COMPARISON: 08/05/2017. CT of the chest, 03/15/2020. FINDINGS: The mildly hyperexpanded. There is no acute infiltrate or mass. There is no demonstrated pleural abnormality. Normal size heart. Normal mediastinum and pete. Normal visualized pulmonary arteries. Normal visualized aortic arch and descending thoracic aorta. Normal visualized thoracic spine. Normal visualized ribs, clavicles, and shoulders. There is no demonstrated abnormality of the visualized soft tissue structures of the upper abdomen. RAD/Chest PA and Lateral IMPRESSION: No acute cardiopulmonary disease or major interval change. Electronically Signed: Feliciano Dillon DO at 16:49 EST ,
[2021-07-25 15:55] LABS: Differential Indicated SCAN CRITERIA MET
[2021-07-25 16:21] LABS: Vitamin B12 1632 pg/mL (211-911); Vitamin D,25 Hydroxy 103.6 ng/mL
[2021-07-25 16:26] LABS: ALB/GLOB Ratio 0.8 RATIO (0.9-2.4); AST(SGOT) 113 U/L (15-37); Alanine Aminotransfer ALT/SGPT 125 U/L (13-56); Albumin, Serum 3.1 g/dL (3.2-5.0); Alkaline Phosphatase 59 U/L (45-117); Anion Gap 6 (5-15); BUN 7 mg/dL (7-18); Calcium,Total 8.7 mg/dL (8.5-10.1); Chloride 94 mmol/L (98-107); Creatinine, Serum 0.77 mg/dL (0.55-1.02); Differential Comment SCANNED; EST Glomerular Filtration Rate 77 mL/min (>60); Est Glom Filt Rate - Afr Amer 93 mL/min (>60); Globulin 4.1 g/dL (2.2-4.2); Glucose 103 mg/dL (74-106); Potassium 3.5 mmol/L (3.5-5.1); Protein, Total 7.2 g/dL (6.4-8.2); Sodium Level 126 mmol/L (136-145); Thyroid Stim Hormone (TSH) 2.54 uIU/mL (0.358-3.74)
[2021-07-25 17:06] LABS: D-Dimer Quantitative (DVT/PE) 2.26 FEU/ug/m (0.27-0.49)
== END 2021-07-25 23:59 | disposition short-term general hospital (02) ==
LOC: LAB 15:14
PROVIDERS: PCP Internal Medicine; Referring Provider Internal Medicine; Visit Provider Internal Medicine
DX: R06.00 Dyspnea, unspecified (principal); R53.83 Other fatigue; U07.1 COVID-19
CPT/HCPCS: 36415; 71046; 80053; 82306; 82607; 84443; 85025; 85379

== ENCOUNTER 2021-07-25 18:38 | Emergency (ER) | payer MEDICARE, SELFPAY ==
[2021-07-25 18:39] VITALS: BP 125/73; PULSE 87; RESP 16; TEMP 36.2; O2SAT 100; BMI 20.6
--- NOTE | 2021-07-25 19:06 | CT_ITS ---
STUDY: CTA CHEST REASON FOR EXAM: Female, 75 years old. Hypoxia elevated d-dimer. COVID positive. Question pulmonary embolus. RADIATION DOSAGE (If Supplied By Facility): CTDIvol = ( 5.66 ) mGy, DLP = ( 136.45 ) mGycm TECHNIQUE: The examination was performed with the intravenous administration of IV 100mL Isovue-370. Post-processing of the angiographic images was performed, with multiplanar reformation and 3D reconstruction. Individualized dose optimization techniques were used for this CT. COMPARISON: Chest, 07/25/2021. CT of the chest, 03/15/2020. FINDINGS: Normal enhancement of the main pulmonary artery and right and left pulmonary arteries. Normal enhancement of the bilateral peripheral pulmonary arteries. There is no demonstrated pulmonary embolism. Normal thoracic aorta and visualized great vessels. There is no demonstrated aortic dissection. Normal heart and pericardium. Coronary artery calcifications. Normal mediastinum. Multiple bilateral hilar lymphadenopathy. Normal visualized trachea and bronchi. The lungs are well expanded. Groundglass pulmonary infiltrates peripherally most marked in the left lung. Normal pleura. Normal chest wall structures. Normal osseous structures. Normal visualized upper abdomen. CT/CTA Chest W/WO Contrast IMPRESSION: 1. No evidence of pulmonary embolus. 2. No aortic dissection or aneurysm. 3. Groundglass pulmonary infiltrates suspicious for COVID pneumonia. Electronically Signed: Feliciano Dillon DO at 20:35 EST Reading Location ID and State: [address] [place] [address] Tel [phone], Service support ,
--- NOTE | 2021-07-25 19:07 | EX.ED.DYSGE1 ---
HPI History of Present Illness Chief Complaint: Shortness of Breath Informant: patient Onset/Context/Timing Onset: Days Context: Gradual Onset Narrative Narrative: Patient presents secondary to increasing shortness of breath. She was diagnosed with Covid on 20 July. She saw her PCP today secondary to increased shortness of breath. Lab work was obtained and included an elevated D-dimer and sodium low at 126. She was sent in for IV fluids and CTA of the chest. She was reportedly hypoxic in the office. On arrival to the emergency room she is 100% on room air. [facility] Medical History (Updated 07/25/21 @ 20:[address] Elise Churchill MD) Alopecia areata Atherosclerosis of coronary artery of [place] heart without angina pectoris Bullous lesion Chest pain Cystocele, midline Hearing loss of both ears Hyperlipidemia Kidney mass Lung nodule Neutrophilic dermatosis Osteoporosis Panic disorder without agoraphobia Peripheral vascular disease Raynaud's syndrome without gangrene Vitamin D deficiency Home Medications ergocalciferol (vitamin D2) 1,250 mcg (50,000 unit) capsule 50,000 unit PO .COMPLEX 01/21/19 [History Last Taken Unknown] estradiol 0.5 mg tablet 0.25 mg PO DAILY tab 01/21/19 [History Last Taken Unknown] prednisone 5 mg tablet 20 mg PO DAILY PRN tab 01/21/19 [History Last Taken Unknown] aspirin 81 mg tablet,delayed release 81 mg PO DAILY PRN 04/15/19 [History Last Taken Unknown] Allergy/AdvReac Type Severity Reaction Status Date / Time pneumococcal vaccine Allergy Severe fever, Verified 07/25/21 18:39 [From Prevnar 13 (PF)] flu-like symptoms, severe redness and swelling in arm Family History Brother , Age 50 Myocardial infarction Brother , Age 72 Heart disease CAD (coronary artery disease) Father , Age 78 Heart disease, Onset Age: 40 Cancer stomach CAD (coronary artery disease) CABG Grandfather , Age 39 Myocardial infarction Mother , Age 89 Dementia Atrial fibrillation Diabetes Sister Atrial fibrillation Brother CAD (coronary artery disease) stents Sister Atrial fibrillation Surgical History History of appendectomy History of hysterectomy Social History Smoking Status: Former smoker how long ago did patient quit smokin years ago alcohol intake: former details: currently in AA- Quit 9 years ago substance use type: does not use caffeine: Yes Type: coffee Number of servings: 3 ROS ROS ED Constitutional Constitutional ED: Reports chills; Denies fever(s) Eyes Eyes: Denies change in vision ENT ENT ED: Denies sore throat Cardiovascular Cardiovascular: Denies chest pain Respiratory/Chest Respiratory/Chest: Reports cough and dyspnea Gastrointestinal Gastrointestinal: Denies abdominal pain, diarrhea, nausea or vomiting Genitourinary Genitourinary ED: Denies dysuria Musculoskeletal Musculoskeletal: Denies back pain Integumentary Denies rash Neurologic Neurologic: Reports weakness; Denies headache(s) Allergic/Immunologic Allergic/Immunologic ED: Denies urticaria EXAM Physical Exam Const Vital Signs: 07/25/21 18:39 07/25/21 19:44 Temperature 97.1 F L Temperature Source Temporal Pulse Rate 87 Respiratory Rate 16 Respiratory Effort Normal Respiratory Depth Normal Respiratory Pattern Normal Blood Pressure 125/73 H Blood Pressure Mean 90 Pulse Ox 100 Oxygen Delivery Method Room Air Positive well nourished and well developed General Appearance ED: well developed HEENT Reports moist mucous membranes Eyes PERRL and EOMs intact bilaterally Neck supple Chest Wall inspection of chest normal and palpation of chest normal Resp normal respiratory effort and clear to auscultation bilaterally Cardio regular rate and regular rhythm GI normal to inspection, nondistended, normoactive bowel sounds and non-tender Palpation: soft Extremity normal to inspection Neuro oriented x3 Sensorium / Orientation: alert Psych mental status grossly normal Skin no rashes or lesions noted MDM MDM MDM Narrative Medical decision making narrative: Lab work from earlier today reviewed. CTA of the chest ordered. Patient ordered 500 cc IV fluid bolus. Radiography Diagnostic Testing: Clinical Impression(s) from Imaging Studies Chest CTA 07/25/21 19:06 IMPRESSION: 1. No evidence of pulmonary embolus. 2. No aortic dissection or aneurysm. 3. Groundglass pulmonary infiltrates suspicious for COVID pneumonia. Electronically Signed: Feliciano Dillon DO at 20:35 EST Reading Location ID and State: [address] [place] [address] Tel [phone], Service support , Treatment and Re-Evaluation Comments:: CTA reveals no evidence of PE. Infiltrate suspicious for Covid pneumonia noted. On repeat evaluation patient remains 98% on room air. She will be discharged home with continued supportive care. Discharge Plan Triage Chief Complaint: Shortness of Breath ED Provider: Elise Churchill Dx/Rx/DC Orders Clinical Impression: COVID-19 Instructions: Coronavirus Disease 2019 (COVID-19): Overview, Coronavirus Disease 2019 (COVID-19): Caring for Yourself or Others Prescriptions: No Action prednisone 5 mg tablet 20 mg PO DAILY PRN (Reason: shortness of breath) RF: 0 estradiol 0.5 mg tablet 0.25 mg PO DAILY RF: 0 ergocalciferol (vitamin D2) [Drisdol] 50,000 unit capsule 50,000 unit PO .COMPLEX RF: 0 aspirin [Adult Aspirin Regimen] 81 mg tablet,delayed release (DR/EC) 81 mg PO DAILY PRNRF: 0 Primary Care Provider: Jane Sifuentes Referrals: Jane Sifuentes DO [Primary Care Provider] - 1-2 Weeks Disposition Disposition: Home, Self Care
[2021-07-25 21:08] VITALS: PULSE 83; RESP 18; O2SAT 97
--- NOTE | 2021-07-26 17:54 | CM.ED ---
ER DC F/u Call: Patient Dc'd from ER 07/25/2021 for Covid PNA, CC:SOB. No Home O2 as O2 sat wnl on RA. Supportive Care. Called patient listed number, no answer, VM left to return call if having any questions or concerns. Shiraz Anderson, NOVACM
== END 2021-07-25 21:09 | disposition home or self-care (01) ==
PROVIDERS: Emergency Provider Emergency Medicine; PCP Internal Medicine; Visit Provider Emergency Medicine
DX: U07.1 COVID-19 (principal); I73.9 Peripheral vascular disease, unspecified; I25.10 Atherosclerotic heart disease of native coronary artery without angina pectoris; E78.5 Hyperlipidemia, unspecified; M81.0 Age-related osteoporosis without current pathological fracture; E55.9 Vitamin D deficiency, unspecified; Z79.82 Long term (current) use of aspirin; Z79.899 Other long term (current) drug therapy; Z87.891 Personal history of nicotine dependence
CPT/HCPCS: 36415; 71046; 71275; 80053; 82306; 82607; 84443; 85025; 85379; 96360; 99283; J7040; Q9967; A4216

== ENCOUNTER → 2021-10-20 | Outpatient (CLI) | payer MEDICARE, SELFPAY ==
--- NOTE | 2021-10-20 14:11 | BI_ITS ---
MAMMOGRAPHY - BILATERAL SCREENING REASON FOR EXAM: Female, 75 years old. Routine annual screening examination. PERTINENT HISTORY: Non-contributory. Remote left excisional breast biopsy. TECHNIQUE: Digital bilateral breast melody (3D mammographic acquisition) in the CC and MLO projections. 2-D mediolateral oblique (MLO) and craniocaudad (CC) views of both breasts were obtained. CAD: Full Field Digital Mammography with Computer Added Detection was performed. COMPARISON: Comparison is made with prior examination dated 06/15/2020 and 12/10/2018. FINDINGS: Breast Composition: There are scattered areas of fibroglandular density. There are no dominant masses or suspicious calcifications. Stable small benign appearing right axillary nodes. No other significant abnormalities are identified. There has been no significant change since the prior study. BI/SCRN MAMM (CAD)W/MELODY BILAT IMPRESSION: Stable bilateral screening mammogram. Yearly follow-up mammogram recommended. (A) ASSESSMENT CATEGORY: BIRADS Category 2: Benign. A letter regarding these results will be sent to the patient by the facility within 30 days. Approximately 10% of breast cancers are not detected by mammography. A normal mammogram should not delay biopsy of a clinically suspicious abnormality. [id number] Electronically Signed: Miguel Haider MD at 14:48 EDT ,
== END | disposition home or self-care (01) ==
LOC: OPBI 14:10
PROVIDERS: PCP Internal Medicine; Referring Provider Internal Medicine; Visit Provider Internal Medicine
DX: Z12.31 Encounter for screening mammogram for malignant neoplasm of breast (principal)
CPT/HCPCS: 77063; 77067

== ENCOUNTER → 2021-10-25 | Outpatient (CLI) | payer MEDICARE, SELFPAY ==
--- NOTE | 2021-10-25 12:57 | CT_ITS ---
STUDY: CT CHEST WITHOUT CONTRAST REASON FOR EXAM: Female, 75 years old. LUNG NODULE RADIATION DOSAGE (If Supplied By Facility): CTDIvol = ( 5.88 ) mGy, DLP = ( 210.38 ) mGycm TECHNIQUE: Transaxial imaging was performed without the administration of intravenous contrast material. Individualized dose optimization techniques were used for this CT. COMPARISON: Comparison is made with prior study dated 07/25/2021 and 03/15/2020. FINDINGS: CHEST Stable small benign-appearing bilateral axillary lymph nodes. Stable 2.5 mm noncalcified nodule in the right upper lobe as seen on axial image #57. Stable 3.5 mm noncalcified nodule in the right middle lobe adjacent to the right minor fissure as seen on axial image #96. There is no demonstrated pleural abnormality. There are calcifications of the coronary arteries. There are multiple small lymph nodes within the mediastinum, which are normal in size and morphology most compatible with reactive lymph hyperplasia. Normal hilar regions. Normal unenhanced pulmonary arteries. Normal aorta arch and descending thoracic aorta. There are degenerative changes of the thoracic spine. There is no demonstrated abnormality of the visualized upper abdomen. CT/Chest without Contrast IMPRESSION: Stable examination. Electronically Signed: Miguel Haider MD at 15:18 EDT ,
== END | disposition home or self-care (01) ==
PROVIDERS: PCP Internal Medicine; Referring Provider Internal Medicine; Visit Provider Internal Medicine
DX: R91.1 Solitary pulmonary nodule (principal)
CPT/HCPCS: 71250

== ENCOUNTER → 2021-12-29 | Outpatient (CLI) | payer MEDICARE, SELFPAY ==
[2021-12-29 12:08] LABS: Absolute Lymphocyte Count 2.07 X10^3/uL (0.83-4.51); Absolute Neutrophil Count 6.3 X10^3/uL (2.0-7.7); Basophil# 0.02 X10^3/uL; Basophil% 0.2 % (0-1); Eosinophil# 0.01 X10^3/uL; Eosinophils% 0.1 % (0-5); Hematocrit 40.9 % (37-47); Hemoglobin 13.6 g/dL (12.0-15.0); Lymphocyte # 2.07 X10^3/ul (0.83-4.51); Lymphocyte % 23.8 % (19-41); Mean Corp Hgb Conc 33.3 g/dL (32-36); Mean Corpuscular Hgb 31.1 pg (27.0-32.0); Mean Corpuscular Volume 93.6 fL (81-99); Mean Platelet Vol. 10.8 fl (6.2-12.0); Monocyte# 0.25 X10^3/uL; Monocyte% 2.9 % (0-10); NRBC Flagged by Analyzer 0 % (0-5); Neutrophil # 6.29 X10^3/uL (2.7-7.7); Neutrophil % 72.5 % (47-70); Platelet Count 189 K/mm3 (150-450); RBC Distribution Width CV 13.2 % (11.6-14.6); RBC Distribution Width SD 45.7 fl (35.1-43.9); Red Blood Count 4.37 M/mm3 (4.2-5.4); White Blood Count 8.7 K/mm3 (4.4-11.0)
[2021-12-29 12:31] LABS: ALB/GLOB Ratio 1.1 RATIO (0.9-2.4); AST(SGOT) 23 U/L (15-37); Alanine Aminotransfer ALT/SGPT 24 U/L (13-56); Albumin, Serum 3.9 g/dL (3.2-5.0); Alkaline Phosphatase 62 U/L (45-117); Anion Gap 7 (5-15); BUN 11 mg/dL (7-18); BUN/Creat Ratio 10.7 RATIO (10-20); Calcium,Total 9.6 mg/dL (8.5-10.1); Chloride 100 mmol/L (98-107); Cholesterol 220 mg/dL (200); Creatinine, Serum 1.03 mg/dL (0.55-1.02); EST Glomerular Filtration Rate 55 mL/min (>60); Est Glom Filt Rate - Afr Amer 67 mL/min (>60); Globulin 3.6 g/dL (2.2-4.2); Glucose 132 mg/dL (74-106); High Density Lipoprotein 92 mg/dL; Potassium 4.5 mmol/L (3.5-5.1); Protein, Total 7.5 g/dL (6.4-8.2); Sodium Level 133 mmol/L (136-145); Triglycerides 48 mg/dL; Very Low Density Lipoprotein 10 mg/dL (5-40)
[2021-12-29 16:57] LABS: Vitamin D,25 Hydroxy 50.2 ng/mL
== END | disposition home or self-care (01) ==
LOC: LAB 11:08
PROVIDERS: PCP Internal Medicine; Visit Provider Internal Medicine
DX: E78.5 Hyperlipidemia, unspecified (principal); I25.10 Atherosclerotic heart disease of native coronary artery without angina pectoris; E55.9 Vitamin D deficiency, unspecified
CPT/HCPCS: 36415; 80053; 80061; 82306; 85025

== ENCOUNTER → 2022-03-29 | Outpatient (CLI) | payer MEDICARE, SELFPAY ==
[2022-03-29 12:05] LABS: Vitamin D,25 Hydroxy 43.5 ng/mL
[2022-03-29 12:08] LABS: AST(SGOT) 21 U/L (15-37); Alanine Aminotransfer ALT/SGPT 28 U/L (13-56); Albumin, Serum 3.6 g/dL (3.2-5.0); Alkaline Phosphatase 66 U/L (45-117); Anion Gap 4 (5-15); BUN 18 mg/dL (7-18); Calcium,Total 9.3 mg/dL (8.5-10.1); Chloride 105 mmol/L (98-107); Cholesterol 190 mg/dL (200); Creatinine, Serum 0.86 mg/dL (0.55-1.02); EST Glomerular Filtration Rate 68 mL/min (>60); Est Glom Filt Rate - Afr Amer 83 mL/min (>60); Globulin 3.6 g/dL (2.2-4.2); Glucose 88 mg/dL (74-106); High Density Lipoprotein 60 mg/dL; Potassium 4.3 mmol/L (3.5-5.1); Protein, Total 7.2 g/dL (6.4-8.2); Sodium Level 137 mmol/L (136-145); Triglycerides 102 mg/dL; Very Low Density Lipoprotein 20 mg/dL (5-40)
[2022-03-29 12:24] LABS: Hemoglobin A1c 5.3 % (3.8-5.6)
== END | disposition home or self-care (01) ==
LOC: LAB 10:31
PROVIDERS: PCP Internal Medicine; Visit Provider Internal Medicine
DX: E55.9 Vitamin D deficiency, unspecified (principal); E78.5 Hyperlipidemia, unspecified; R73.01 Impaired fasting glucose
CPT/HCPCS: 36415; 80053; 80061; 82306; 83036

== ENCOUNTER 2022-05-01 06:23 | Day surgery (SDC) | payer MEDICARE, SELFPAY ==
[2022-05-01] VITALS (7 sets, daily range): BP systolic 111–145; BP diastolic 60–71; PULSE 63–75; RESP 16–99; TEMP 36.5–36.7; O2SAT 16–100; BMI 21.2
[2022-05-01] MEDS: Lactated Ringers 1,000 ML 15 ML IV (06:45)
--- NOTE | 2022-05-01 07:05 | PCM.HP.BLA ---
History and Physical Date of Admission: 05/01/22 Intake Vital Signs ? 07/25/2217:39 03/14/2209:50 Height 5 ft 5 in 5 ft 5 in Weight: ? 124 lb 8 oz BMI ? 20.7 BP ? 132/72 H Blood Pressure Location ? Rt brachial Position ? Sitting Respiration ? 18 Pulse ? 73 Pulse Source ? NIBP Temp ? 97.1 F L Temp Source ? Temporal Pulse Oximetry (%) ? 98 Oxygen Delivery Method ? room air Intake Visit Reasons:?CSCOPE Chief Complaint: screening colonoscopy Radio Personality Required: No Is patient in pain?: No Allergies pneumococcal vaccine [From Prevnar 13 (PF)] Allergy (Severe, Verified 03/14/22 09:50) fever, flu-like symptoms, severe redness and swelling in arm Medications ergocalciferol (vitamin D2) 1,250 mcg (50,000 unit) capsule (Drisdol) 50,000 unit PO .COMPLEX 01/21/19 [History Confirmed 03/14/22] estradiol 0.5 mg tablet 0.25 mg PO DAILY 01/21/19 [History Confirmed 03/14/22] prednisone 5 mg tablet 20 mg PO DAILY PRN shortness of breath 01/21/19 [History Confirmed 03/14/22] acetaminophen 650 mg tablet,extended release 650 mg PO Q8H PRN 03/14/22 [History Confirmed 03/14/22] diphenhydramine 25 mg-acetaminophen 500 mg tablet (Tylenol PM Extra Strength) 1 tab PO QHS 03/14/22 [History Confirmed 03/14/22] Is last menstrual period known: No Post menopausal: Yes Patient : No PFS Medical History?(Updated 03/14/22 @ 09:[address] Steffen Hardy MD) Alopecia areata Atherosclerosis of coronary artery of [place] heart without angina pectoris Bullous lesion Chest pain Cystocele, midline Hearing loss of both ears Hyperlipidemia Kidney mass Lung nodule Neutrophilic dermatosis Osteoporosis Panic disorder without agoraphobia Peripheral vascular disease Raynaud's syndrome without gangrene Vitamin D deficiency Surgical History?(Updated 03/14/22 @ 09:50 by Kylah Yang) History of appendectomy History of colonoscopy History of dilation and curettage History of hysterectomy Family History? Brother?? ,? Age 50 Myocardial infarctionBrother?? ,? Age 72 Heart disease CAD (coronary artery disease)Father?? ,? Age 78 Heart disease,? Onset Age: 40 Cancer ?? ? stomach CAD (coronary artery disease) ?? ? CABGGrandfather?? ,? Age 39 Myocardial infarctionMother?? ,? Age 89 Dementia Atrial fibrillation DiabetesSister Atrial fibrillationBrother CAD (coronary artery disease) ?? ? stentsSister Atrial fibrillation Social History? Smoking Status:? Former smoker how long ago did patient quit smoking:? 3 years ago alcohol intake:? former details:? currently in AA- Quit 9 years ago substance use type:? does not use caffeine:? Yes Type: coffee Number of servings: 3 HPI HPI HPI: 76-year-old female here for screening colonoscopy.? Her last colonoscopy was normal and she is due for her last screening colonoscopy.? She denies any abdominal pain or blood in the stool.? She has no history of polyps. ROS General General: No weight change or fatigue HEENT HEENT: No difficulty swallowing Endo Endocrine: No thyroid disease Musc Musculoskeletal: No back problems or arthritis Cardio Cardiovascular: No pacemaker, heart disease, atrial fibrillation, high blood pressure, heart attack, heart stent, palpitations or chest pain Psych Psychiatric: No depression or anxiety Resp Respiratory: No shortness of breath, No cough, No COPD, No asthma and No emphysema Gastro Gastrointestinal: No abdominal pain, No nausea or vomiting, No diarrhea, No constipation, No blood in stool, No acid reflux, No hemorrhoids, No ulcers, No gallbladder problem and No black,tarry stools Elias Hematologic: No blood thinners Exam Const General: cooperative Orientation: alert and oriented x3 HENMT Head: normal to inspection Neck Neck: normal visual inspection and full ROM Chest Chest palpation & inspection: normal inspection of the chest Resp Effort & Inspection: normal respiratory effort Auscultation: clear to auscultation bilaterally Cardio Rate: regular rate Rhythm: regular rhythm GI Inspection: non-distended Palpation: soft and nontender Skin General: no rashes or lesions noted Neuro General: patient alert and patient oriented x3 Extrem General: full ROM Psych Appearance: grossly normal Mental Status: mental status grossly normal Assessment and Plan Assessment and Plan (1) Screen for colon cancer: ?Status:?Acute ?Plan: I explained endoscopy in detail to the patient.? I explained the risks including but not limited to stroke or heart attack with anesthesia, perforation of the GI tract, bleeding, infection.? I explained that any of these could necessitate further emergency surgery.? The patient understands and all questions were answered sufficiently.? The patient wishes to proceed with procedure. Steffen Hardy MD Pager: [facility] [address] [place] [address] [address] [place] [address] Office: I have seen and examined the patient and there are no changes
--- NOTE | 2022-05-01 08:30 | OP.CCLET_ITS ---
05/01/2022 Jane Sifuetnes Re : Colonoscopy procedure for Loraine Sifuentes This procedure was performed on Sunday, May 01, 2022. My impressions and recommendations are as follows: Impressions : - The entire examined colon is normal on direct and retroflexion views. - No specimens collected. Recommendations : - Discharge patient to home. - Resume previous diet. - Continue present medications. - Repeat colonoscopy is not recommended due to current age (66 years or older) for screening purposes. My findings are described in the full procedure note, which is enclosed. If I can be of further assistance, please feel free to contact me at Doctor phone number(s): , Work: . Sincerely, Steffen Hardy MD 05/01/2022 8:30:36 AM This report has been signed electronically.
--- NOTE | 2022-05-01 08:30 | OP.COLON_ITS ---
Patient Name: Loraine Rivers Procedure Date: 05/01/2022 7:10 AM Date of : 1945 Age: 76 Procedure: Colonoscopy Indications: Screening for colorectal malignant neoplasm Providers: Steffen Hardy MD Referring MD: Jane Sifuentes Medicines: Monitored Anesthesia Care Patient Profile: This is a 76 year old female. Refer to note in patient chart for documentation of history and physical. Last Colonoscopy: more than 10 years ago. Complications: No immediate complications. Procedure: Pre-Anesthesia Assessment: - Prior to the procedure, a History and Physical was performed, and patient medications and allergies were reviewed. The patient's tolerance of previous anesthesia was also reviewed. The risks and benefits of the procedure and the sedation options and risks were discussed with the patient. All questions were answered, and informed consent was obtained. Prior Anticoagulants: The patient has taken no previous anticoagulant or antiplatelet agents. After reviewing the risks and benefits, the patient was deemed in satisfactory condition to undergo the procedure. After I obtained informed consent, the scope was passed under direct vision. Throughout the procedure, the patient's blood pressure, pulse, and oxygen saturations were monitored continuously. The colonoscope was introduced through the anus and advanced to the cecum, identified by appendiceal orifice and ileocecal valve. The colonoscopy was performed without difficulty. The patient tolerated the procedure well. The quality of the bowel preparation was good. Scope In: 7:30:55 AM Scope Withdrawal Time 0 hours 5 minutes 51 seconds Scope Out: 7:54:32 AM Total Procedure Duration Time 0 hours 23 minutes 37 seconds Findings: The entire examined colon appeared normal on direct and retroflexion views. Impression: - The entire examined colon is normal on direct and retroflexion views. - No specimens collected. Recommendation: - Discharge patient to home. - Resume previous diet. - Continue present medications. - Repeat colonoscopy is not recommended due to current age (66 years or older) for screening purposes. Procedure Code(s): --- Professional --- 87889, Colonoscopy, flexible; diagnostic, including collection of specimen(s) by brushing or washing, when performed (separate procedure) Diagnosis Code(s): --- Professional --- Z12.11, Encounter for screening for malignant neoplasm of colon CPT copyright 2017 [employer]. All rights reserved. The codes documented in this report are preliminary and upon remote medical coder review may be revised to meet current compliance requirements. Steffen Hardy MD 05/01/2022 8:30:36 AM This report has been signed electronically. Number of Addenda: 0 Note Initiated On: 05/01/2022 7:10 AM
== END 2022-05-01 08:48 | disposition home or self-care (01) ==
LOC: EN 06:23 → AC 06:24
PROVIDERS: PCP Internal Medicine; Referring Provider Internal Medicine; Visit Provider Surgery
PROC: 0DJD8ZZ Inspection of Lower Intestinal Tract, Via Natural or Artificial Opening Endoscopic (ICD-10-PCS; CPT 45378; principal; 2022-05-01 07:25)
DX: Z12.11 Encounter for screening for malignant neoplasm of colon (principal); I25.10 Atherosclerotic heart disease of native coronary artery without angina pectoris; E55.9 Vitamin D deficiency, unspecified; Z87.891 Personal history of nicotine dependence
CPT/HCPCS: G0121; J7120; J2405

== ENCOUNTER → 2022-07-06 | Outpatient (CLI) | payer MEDICARE, SELFPAY ==
[2022-07-06 13:24] LABS: Absolute Lymphocyte Count 2.23 X10^3/uL (0.83-4.51); Absolute Neutrophil Count 7.5 X10^3/uL (2.0-7.7); Basophil# 0.05 X10^3/uL; Basophil% 0.5 % (0-1); Eosinophil# 0.04 X10^3/uL; Eosinophils% 0.4 % (0-5); Hemoglobin 14.7 g/dL (12.0-15.0); Lymphocyte # 2.23 X10^3/ul (0.83-4.51); Lymphocyte % 21.8 % (19-41); Mean Corp Hgb Conc 33.4 g/dL (32-36); Mean Corpuscular Hgb 31.7 pg (27.0-32.0); Mean Corpuscular Volume 94.8 fL (81-99); Mean Platelet Vol. 10.3 fl (6.2-12.0); Monocyte# 0.36 X10^3/uL; Monocyte% 3.5 % (0-10); NRBC Flagged by Analyzer 0 % (0-5); Neutrophil # 7.51 X10^3/uL (2.7-7.7); Neutrophil % 73.3 % (47-70); Platelet Count 158 K/mm3 (150-450); RBC Distribution Width CV 13.2 % (11.6-14.6); Red Blood Count 4.64 M/mm3 (4.2-5.4); White Blood Count 10.2 K/mm3 (4.4-11.0)
[2022-07-06 13:41] LABS: Hemoglobin A1c 5.1 % (3.8-5.6)
[2022-07-06 13:51] LABS: Vitamin D,25 Hydroxy 63.7 ng/mL
[2022-07-06 13:56] LABS: ALB/GLOB Ratio 1.2 RATIO (0.9-2.4); AST(SGOT) 26 U/L (15-37); Alanine Aminotransfer ALT/SGPT 26 U/L (13-56); Alkaline Phosphatase 70 U/L (45-117); Anion Gap 8 (5-15); BUN 14 mg/dL (7-18); BUN/Creat Ratio 14.7 RATIO (10-20); Calcium,Total 9.3 mg/dL (8.5-10.1); Chloride 103 mmol/L (98-107); Cholesterol 219 mg/dL (200); Creatinine, Serum 0.95 mg/dL (0.55-1.02); EST Glomerular Filtration Rate 60 mL/min (>60); Est Glom Filt Rate - Afr Amer 73 mL/min (>60); Globulin 3.4 g/dL (2.2-4.2); Glucose 111 mg/dL (74-106); High Density Lipoprotein 89 mg/dL; Potassium 4.1 mmol/L (3.5-5.1); Protein, Total 7.4 g/dL (6.4-8.2); Sodium Level 136 mmol/L (136-145); Triglycerides 80 mg/dL; Very Low Density Lipoprotein 16 mg/dL (5-40)
== END | disposition home or self-care (01) ==
LOC: LAB 13:04
PROVIDERS: PCP Internal Medicine; Referring Provider Internal Medicine; Visit Provider Internal Medicine
DX: E78.5 Hyperlipidemia, unspecified (principal); R73.01 Impaired fasting glucose; E55.9 Vitamin D deficiency, unspecified
CPT/HCPCS: 36415; 80053; 80061; 82306; 83036; 85025

== ENCOUNTER → 2022-07-19 | Outpatient (CLI) | payer MEDICARE, SELFPAY ==
--- NOTE | 2022-07-19 14:57 | BD_ITS ---
STUDY: DUAL ENERGY X-RAY ABSORPTIOMETRY / DXA REASON FOR EXAM: Female, 76 years old. Z780 -- postmenopausal TECHNIQUE: Bone Mineral Density (BMD) measurements of lumbar spine and bilateral hips were obtained. COMPARISON: Comparison is made with prior study dated 06/15/2020. FINDINGS: Lumbar Spine (L1-L4): g/cm2 (0.815) / T-score (-2.1) / Z-score (0.4) Findings are suggestive of osteopenia with a high fracture risk. Left Femur Total: g/cm2 (0.585) / T-score (-2.9) / Z-score (-1.1) Left Femoral Neck: g/cm2 (0.481) / T-score (-3.3) / Z-score (-1.2) Right Femur Total: g/cm2 (0.627) / T-score (-2.6) / Z-score (-0.7) Right Femoral Neck: g/cm2 (0.527) / T-score (-2.9) / Z-score (-0.7) The T-Scores on the most recent prior examination were: Lumbar Spine (L1-L4): There has been worsening of bone density since the previous examination. Left Femur Total: which represents a worsening of 4%. Right Femur Total: which represents an improvement of 3%. BD/Dexa Bone Density Study IMPRESSION: The patient is considered osteoporotic as outlined below according to World [employer] Organization (WHO) criteria with a high fracture risk. There has been worsening of bone density since the previous examination. Reference Information: The T-score is the number of standard deviations above or below the standard which is normal for young adults at their peak bone mineral density. The World Health Organization (WHO) interprets the T-scores as follows: Above -1 Normal bone density Between -1 and -2.5 Osteopenia Equal to / or below -2.5 Osteoporosis As a practical clinical guideline, osteopenia may be graded as follows: Mild -1 through -1.5 Moderate -1.6 through -2.0 Severe -2.1 through -2.4 The Z-score is the number of standard deviations above or below age-matched controls. A Z-score of less than -1.5 would be considered abnormal. References: 1. NIH Osteoporosis and Related Bone Diseases www osteo.org 2. International Society for Clinical Densitometry www iscd.org 3. National Osteoporosis Foundation www nof.org Electronically Signed: Mgiuel Haider MD at 10:09 EST ,
== END | disposition home or self-care (01) ==
LOC: OPBD 14:46
PROVIDERS: PCP Internal Medicine; Visit Provider Internal Medicine
DX: M81.0 Age-related osteoporosis without current pathological fracture (principal); M85.80 Other specified disorders of bone density and structure, unspecified site; Z78.0 Asymptomatic menopausal state
CPT/HCPCS: 77080

== ENCOUNTER → 2022-10-22 | Outpatient (CLI) | payer MEDICARE, SELFPAY ==
--- NOTE | 2022-10-22 13:58 | BI_ITS ---
MAMMOGRAPHY - BILATERAL SCREENING REASON FOR EXAM: Female, 76 years old. Routine annual screening examination. PERTINENT HISTORY: Non-contributory. History of remote left excisional breast biopsy. TECHNIQUE: Digital bilateral breast richard (3D mammographic acquisition) in the CC and MLO projections. 2-D mediolateral oblique (MLO) and craniocaudad (CC) views of both breasts were obtained. CAD: Full Field Digital Mammography with Computer Added Detection was performed. COMPARISON: Comparison is made with prior examination October 20, 2021 and June 15, 2020. FINDINGS: Breast Composition: There are scattered areas of fibroglandular density. There are no dominant masses or suspicious calcifications. Stable benign-appearing bilateral axillary lymph nodes. No other significant abnormalities are identified. There has been no significant change since the prior study. BI/SCREENING MAMM (CAD), BILAT IMPRESSION: Stable bilateral screening mammogram. Yearly follow-up mammogram recommended. (A) ASSESSMENT CATEGORY: BIRADS Category 2: Benign. A letter regarding these results will be sent to the patient by the facility within 30 days. Approximately 10% of breast cancers are not detected by mammography. A normal mammogram should not delay biopsy of a clinically suspicious abnormality. [id number] Electronically Signed: Miguel Haider MD at 14:56 EDT ,
[2022-10-22 18:00] LABS: Absolute Lymphocyte Count 7.03 X10^3/uL (0.83-4.51); Absolute Neutrophil Count 3.9 X10^3/uL (2.0-7.7); Basophil# 0.08 X10^3/uL; Basophil% 0.7 % (0-1); Eosinophil# 0.11 X10^3/uL; Eosinophils% 0.9 % (0-5); Hematocrit 42.2 % (37-47); Hemoglobin 13.8 g/dL (12.0-15.0); Lymphocyte # 7.03 X10^3/ul (0.83-4.51); Lymphocyte % 59.4 % (19-41); Mean Corp Hgb Conc 32.7 g/dL (32-36); Mean Corpuscular Hgb 31.7 pg (27.0-32.0); Mean Corpuscular Volume 96.8 fL (81-99); Mean Platelet Vol. 11.2 fl (6.2-12.0); Monocyte# 0.68 X10^3/uL; Monocyte% 5.7 % (0-10); NRBC Flagged by Analyzer 0 % (0-5); Neutrophil # 3.92 X10^3/uL (2.7-7.7); Neutrophil % 33.1 % (47-70); POSITIVE DIFFERENTIAL YES; POSITIVE MORPHOLOGY YES; Platelet Count 144 K/mm3 (150-450); RBC Distribution Width CV 13.6 % (11.6-14.6); RBC Distribution Width SD 48.8 fl (35.1-43.9); Red Blood Count 4.36 M/mm3 (4.2-5.4); White Blood Count 11.8 K/mm3 (4.4-11.0)
[2022-10-22 18:39] LABS: Differential Indicated SCAN CRITERIA MET
[2022-10-22 18:49] LABS: Anisocytosis RARE; Atypical Lymphocyte 1+ %; Macrocytosis RARE; Platelet Estimate ADEQUATE (ADEQ); Reactive Lymphocyte 1+; Red Cell Morphology N CHROM NORMAL (NORM C&C)
== END | disposition home or self-care (01) ==
PROVIDERS: PCP Internal Medicine; Referring Provider Internal Medicine; Visit Provider Internal Medicine
DX: Z12.31 Encounter for screening mammogram for malignant neoplasm of breast (principal); D69.6 Thrombocytopenia, unspecified
CPT/HCPCS: 36415; 77067; 85025

== ENCOUNTER → 2023-02-26 | Outpatient (CLI) | payer MEDICARE, SELFPAY ==
--- NOTE | 2023-02-26 14:19 | CT_ITS ---
STUDY: CT BRAIN WITHOUT CONTRAST REASON FOR EXAM: Female, 77 years old. STAT- had fall and hit head, having dizziness, had syncopy episod -- STAT- had fall and hit head, having dizziness, had syncopy episod RADIATION DOSAGE (If Supplied By Facility): CTDIvol = ( 47.06 ) mGy, DLP = ( 890.33 ) mGycm TECHNIQUE: Transaxial CT imaging of the brain was performed without administration of intravenous contrast material. Individualized dose optimization techniques were used for this CT. COMPARISON: No relevant priors. FINDINGS: Normal soft tissue structures. Normal calvarium. There is mild cerebral atrophy with widening of the extra-axial spaces and ventricular dilatation. There are areas of decreased attenuation within the white matter tracts of the supratentorial brain, consistent with microvascular disease changes. Normal basal ganglia and thalami. Normal brainstem. Normal cerebellum. There is no intracranial hemorrhage. There are no findings of an acute ischemic infarction. Atherosclerotic calcification of the cavernous portions of the internal carotid arteries bilaterally. Opacification of the maxillary sinuses bilaterally as well as the ethmoid sinuses and mucosal thickening of the sphenoid sinus. CT/Brain/Head without Contrast IMPRESSION: Chronic involutional changes of the brain. Sinusitis. Electronically Signed: Miguel Haider MD at 15:02 EDT ,
[2023-02-26 15:00] LABS: Absolute Lymphocyte Count 4.98 X10^3/uL (0.83-4.51); Absolute Neutrophil Count 7.8 X10^3/uL (2.0-7.7); Basophil# 0.08 X10^3/uL; Basophil% 0.6 % (0-1); Eosinophil# 0.14 X10^3/uL; Hematocrit 39.4 % (37-47); Hemoglobin 13.7 g/dL (12.0-15.0); Lymphocyte # 4.98 X10^3/ul (0.83-4.51); Lymphocyte % 35.6 % (19-41); Mean Corp Hgb Conc 34.8 g/dL (32-36); Mean Corpuscular Hgb 31.6 pg (27.0-32.0); Mean Corpuscular Volume 90.8 fL (81-99); Mean Platelet Vol. 10.1 fl (6.2-12.0); Monocyte# 0.93 X10^3/uL; Monocyte% 6.7 % (0-10); NRBC Flagged by Analyzer 0 % (0-5); Neutrophil # 7.79 X10^3/uL (2.7-7.7); Neutrophil % 55.7 % (47-70); POSITIVE MORPHOLOGY YES; Platelet Count 214 K/mm3 (150-450); RBC Distribution Width CV 13.3 % (11.6-14.6); RBC Distribution Width SD 45.1 fl (35.1-43.9); Red Blood Count 4.34 M/mm3 (4.2-5.4)
[2023-02-26 15:01] LABS: Differential Indicated SCAN CRITERIA MET
[2023-02-26 15:13] LABS: AST(SGOT) 20 U/L (15-37); Alanine Aminotransfer ALT/SGPT 21 U/L (13-56); Albumin, Serum 3.5 g/dL (3.2-5.0); Alkaline Phosphatase 82 U/L (45-117); Anion Gap 8 (5-15); BUN 13 mg/dL (7-18); BUN/Creat Ratio 15.1 RATIO (10-20); Calcium,Total 9.4 mg/dL (8.5-10.1); Chloride 99 mmol/L (98-107); Creatinine, Serum 0.86 mg/dL (0.55-1.02); EST Glomerular Filtration Rate 68 mL/min (>60); Est Glom Filt Rate - Afr Amer 82 mL/min (>60); Globulin 3.4 g/dL (2.2-4.2); Glucose 102 mg/dL (74-106); Potassium 5.1 mmol/L (3.5-5.1); Protein, Total 6.9 g/dL (6.4-8.2); Sodium Level 135 mmol/L (136-145)
[2023-02-26 15:29] LABS: Reactive Lymphocyte 1+
== END | disposition home or self-care (01) ==
PROVIDERS: PCP Internal Medicine; Referring Provider Internal Medicine; Visit Provider Internal Medicine
DX: R42 Dizziness and giddiness (principal); R51.9 Headache, unspecified
CPT/HCPCS: 70450; 80053; 85025

== ENCOUNTER → 2023-03-06 | Outpatient (CLI) | payer MEDICARE, SELFPAY ==
--- NOTE | 2023-03-06 13:53 | CDU_ITS ---
Reason For Study: Syncope Rt. Velocities/BP Lt. Velocities/BP Prox CCA 74.9/14.5 cm/sec. Prox CCA 94.9/22.3 cm/sec. Mid CCA 63.6/15.4 cm/sec. Mid CCA 74/16.8 cm/sec. Dist CCA 58.9/16.3 cm/sec. Dist CCA 58.6/15.7 cm/sec. Prox ICA 41.9/12.6 cm/sec. Prox ICA 47.6/14.6 cm/sec. Mid ICA 65.5/18.2 cm/sec. Mid ICA 86.1/25.6 cm/sec. Dist ICA 76.8/21.1 cm/sec. Dist ICA 65.2/19 cm/sec. Rt. ICA/CCA = 1.21. Lt. ICA/CCA = 1.16. Prox ECA 74/9.7 cm/sec. Prox ECA 80.6/12.4 cm/sec. Rt. Vert. 49.4/11.6 cm/sec. Lt. Vert. 47.6/11.3 cm/sec. Right Extracranial There is intimal thickening but no significant atherosclerotic plaque noted in the right common carotid artery. There is homogeneous, smooth atherosclerotic plaque noted in the right internal carotid artery. There is intimal thickening but no significant atherosclerotic plaque noted in the right external carotid artery. Antegrade flow is noted in the right vertebral artery. Left Extracranial There is intimal thickening but no significant atherosclerotic plaque noted in the left common carotid artery. There is homogeneous, smooth atherosclerotic plaque noted in the left internal carotid artery. There is intimal thickening but no significant atherosclerotic plaque noted in the left external carotid artery. Antegrade flow is noted in the left vertebral artery. Procedure This is a Carotid Duplex examination using B-mode, color flow and specral Doppler. Carotid Duplex [id number]. Exam performed in department. VL/Carotid Duplex Ultrasound Interpretation Summary Mild (<50%) stenosis right extracranial internal carotid. Mild (<50%) stenosis left extracranial internal carotid. Patent and antegrade vertebrals bilaterally. Ordering Physician: Jane Sifuentes Referring Physician: Jane Sifuentes Performed By: Seble Perez RVT
== END | disposition home or self-care (01) ==
LOC: CVS 13:52
PROVIDERS: PCP Internal Medicine; Referring Provider Internal Medicine; Visit Provider Internal Medicine
DX: I25.10 Atherosclerotic heart disease of native coronary artery without angina pectoris (principal); R55 Syncope and collapse
CPT/HCPCS: 93880

== ENCOUNTER 2023-07-24 03:22 | Inpatient (IN) | payer MEDICARE, SELFPAY ==
[2023-07-24] VITALS (12 sets, daily range): BP systolic 125–151; BP diastolic 48–69; PULSE 56–86; RESP 13–19; TEMP 36–36.8; O2SAT 95–98; BMI 20.2
--- NOTE | 2023-07-24 03:28 | RAD_ITS ---
INDICATION: chest pain EXAMINATION/TECHNIQUE: X-RAY - XR Chest 2 Views COMPARISON: Two-view chest x-ray from 05/31/2023 FINDINGS: LINES/DEVICES: None. LUNGS: Hyperexpanded lungs. No pulmonary edema or focal airspace consolidation. No sizable pleural effusion. No pneumothorax detected. MEDIASTINUM AND CARDIOVASCULAR STRUCTURES: Heart size within normal limits. Mediastinal contours unremarkable. BONES AND SOFT TISSUES: No acute findings. RAD/Chest PA and Lateral IMPRESSION: COPD Electronically Signed: Benjamin Rosas MD at 4:12 EST ,
[2023-07-24] MEDS: Aspirin 81 MG TAB.CHEW 324 MG PO (03:36)
[2023-07-24 03:40] LABS: Absolute Lymphocyte Count 9.14 X10^3/uL (0.83-4.51); Absolute Neutrophil Count 11.5 X10^3/uL (2.0-7.7); Basophil% 0.5 % (0-1); Eosinophil# 0.14 X10^3/uL; Eosinophils% 0.6 % (0-5); Hemoglobin 13.7 g/dL (12.0-15.0); Lymphocyte # 9.14 X10^3/ul (0.83-4.51); Lymphocyte % 41.4 % (19-41); Mean Corp Hgb Conc 32.6 g/dL (32-36); Mean Corpuscular Hgb 30.7 pg (27.0-32.0); Mean Corpuscular Volume 94.2 fL (81-99); Mean Platelet Vol. 10.5 fl (6.2-12.0); Monocyte# 1.17 X10^3/uL; Monocyte% 5.3 % (0-10); NRBC Flagged by Analyzer 0 % (0-5); Neutrophil # 11.47 X10^3/uL (2.7-7.7); Neutrophil % 51.9 % (47-70); POSITIVE DIFFERENTIAL YES; POSITIVE MORPHOLOGY YES; Platelet Count 151 K/mm3 (150-450); RBC Distribution Width SD 48.6 fl (35.1-43.9); Red Blood Count 4.46 M/mm3 (4.2-5.4); White Blood Count 22.1 K/mm3 (4.4-11.0)
[2023-07-24 04:00] LABS: Anion Gap 6 (5-15); BUN 19 mg/dL (7-18); BUN/Creat Ratio 20.6 RATIO (10-20); Calcium,Total 9.4 mg/dL (8.5-10.1); Chloride 102 mmol/L (98-107); Creatinine, Serum 0.92 mg/dL (0.55-1.02); EST Glomerular Filtration Rate 63 mL/min (>60); Est Glom Filt Rate - Afr Amer 76 mL/min (>60); Estimated Creatinine Clearance 46.16 ml/min; Glucose 122 mg/dL (74-106); Lipase 44 U/L (13-75); Magnesium 2.5 mg/dL (1.6-2.6); Potassium 3.6 mmol/L (3.5-5.1); Sodium Level 134 mmol/L (136-145); Troponin-I HS (w/2H Reflex) 9 pg/mL (3.0-54.0)
[2023-07-24 04:04] LABS: Differential Indicated SCAN CRITERIA MET
[2023-07-24 04:05] LABS: Differential Comment SCANNED
[2023-07-24 04:09] LABS: AST(SGOT) 87 U/L (15-37); Alanine Aminotransfer ALT/SGPT 64 U/L (13-56); Albumin, Serum 3.8 g/dL (3.2-5.0); Alkaline Phosphatase 76 U/L (45-117); Bilirubin, Direct 0.36 mg/dL (0.00-0.30); Globulin 3.7 g/dL (2.2-4.2); Protein, Total 7.5 g/dL (6.4-8.2)
--- NOTE | 2023-07-24 04:12 | CT_ITS ---
EXAM: CT ANGIOGRAPHY CHEST, ABDOMEN AND PELVIS WITH INTRAVENOUS CONTRAST CLINICAL INDICATION: chest pain, abd pain, dissection study TECHNIQUE: Helically acquired angiography images were obtained of the chest, abdomen and pelvis with intravenous contrast. This CT exam was performed using one or more of the following dose reduction techniques: automated exposure control, adjustment of the mA and/or kV according to patient size, and/or use of iterative reconstruction technique. MIP reconstructed images were created and reviewed. CONTRAST: IV 100mL [id number] RADIATION DOSE: Total DLP: 440.62 mGy-cm. COMPARISON: Nonenhanced chest CT of 10/25/2021. CTA chest of 07/25/2021. FINDINGS: VASCULATURE: AORTA: Minimally calcific. Normal in caliber. No dissection. PULMONARY ARTERIES: Unremarkable. Normal in caliber. No obvious central pulmonary embolism although this study was not performed with the pulmonary embolism protocol. GREAT VESSELS OF AORTIC ARCH: Unremarkable. Normal in caliber. No dissection. CELIAC TRUNK AND MESENTERIC ARTERIES: No acute findings. No occlusion or significant stenosis. No dissection. RENAL ARTERIES: No acute findings. No occlusion or significant stenosis. No dissection. ILIAC ARTERIES: No acute findings. Calcified and noncalcified plaque in the right common iliac artery causes less than 50% stenosis. No occlusion or significant stenosis. No dissection. The visualized common femoral and proximal femoral arteries show no hemodynamically significant stenosis. CHEST: LUNGS AND PLEURAL SPACES: The tiny noncalcified circumscribed subpleural nodule anteriorly within the right upper lobe is again noted, unchanged. There is stable slight thickening of the minor fissure. No patchy pneumonia. No spiculated pulmonary mass, pleural effusion or pneumothorax. HEART: Coronary artery calcification is present. No significant pericardial effusion. MEDIASTINUM: Unremarkable. No mediastinal or hilar adenopathy. Esophagus is unremarkable. Small hiatal hernia. THYROID: Unremarkable. No thyroid lesions. ABDOMEN: LIVER: Liver demonstrates fatty infiltration. Portal veins enhance normally. GALLBLADDER AND BILE DUCTS: Interval increase in gallbladder size; the gallbladder is now distended, measuring 12.8 cm in length by 4.8 cm in transverse diameter. No calcified gallstones, gallbladder wall thickening or pericholecystic stranding. Common bile duct measures 6.7 mm in transverse diameter at the level of the pancreatic head, within normal limits for patient age. No calcified common duct stone. PANCREAS: Unremarkable. No focal cystic or solid mass. SPLEEN: Unremarkable. Normal size without focal cystic or solid mass. ADRENALS: Unremarkable. No nodules. KIDNEYS AND URETERS: Normal size kidneys with symmetric nephrograms. Within the posterior cortex of the right renal upper pole is an 11 mm rounded hypoattenuating nodule which was hyperdense on prior CT of 10/25/2021. This nodule shows CT attenuation of 75 and most likely represents a complicated cyst, and is stable in size. No hydronephrosis or obstructing ureteral stone. STOMACH AND BOWEL: Mild thickening of the wall of the gastric antrum, most likely due to the limited degree of gastric distention. No periduodenal inflammatory changes or distended small bowel loops. Numerous colonic diverticula without evidence for acute diverticulitis. No findings of colitis or small bowel obstruction. PELVIS: APPENDIX: No evidence of acute appendicitis. BLADDER: Unremarkable. REPRODUCTIVE: Uterus is not visualized. No adnexal mass. CHEST, ABDOMEN and PELVIS: INTRAPERITONEAL SPACE: Unremarkable. No ascites or other fluid collection. No free air. BONES/JOINTS: Midthoracic degenerative spurring. Degenerative disc space narrowing with vacuum disc phenomenon and, endplate sclerosis and marginal osteophytes at L4/5. Previous laminectomy at L5/S1 with fusion of L5/S1 disc space. Rounded sclerotic focus within the L4 vertebral body, consistent with benign bone island. No lytic osseous lesion. No acute fracture. SOFT TISSUES: Unremarkable. No discrete abdominal or pelvic wall hernia. LYMPH NODES: Unremarkable. No enlarged lymph nodes. CT/CTA Chst, Abd, Pel W and/or WO IMPRESSION: Negative for PE. No aortic aneurysm or dissection. Stable tiny noncalcified subpleural nodule within the right upper lobe. No acute pulmonary infiltrates. Small hiatal hernia. Fatty infiltration of the liver. Interval development of gallbladder distention. No calcified gallstones or gallbladder wall thickening identified by CT. Correlation with ultrasound may be of benefit, as clinically indicated. Colonic diverticulosis without evidence for acute diverticulitis. Electronically Signed: Manny Higgins MD at 5:40 EST ,
--- NOTE | 2023-07-24 04:14 | ED.VIS.CHEST ---
HPI History of Present Illness Chief Complaint: Chest Pain Informant: patient Narrative Narrative: Patient is a 77-year-old female with history of coronary artery disease, hyperlipidemia, Raynaud's phenomenon, pneumonia last month and tobacco use (quit 6 years ago) presenting with chest pain. Patient states it started around 945 tonight when she was in bed. She states it is a severe burning and heaviness in the center of her chest that radiates outward. She notes the pain radiates to her abdomen, right upper quadrant and into her back. She also describes as crushing. She has associated nausea and did vomit a couple times for temporary relief of her symptoms. Denies any black or blood in her vomit. She states she felt fine earlier today. She went to dinner on 430 and had half a club sandwich and drink water. Her symptoms are worse when she lays down. She tried to take Gaviscon with no relief of her symptoms. She did take 325 mg of aspirin prior to coming to the ER. Denies any associated urinary or bowel symptoms. Has never had any symptoms like this before. No other complaints or concerns at this time. [facility] Medical History Alopecia areata Atherosclerosis of coronary artery of [place] heart without angina pectoris Back pain Bullous lesion Cardiology follow-up encounter Chest pain Cystocele, midline Former smoker Hearing loss of both ears History of echocardiogram History of stress test Hyperlipidemia Kidney mass Loss of hearing Lung nodule Neutrophilic dermatosis Osteoporosis Panic disorder without agoraphobia Peripheral vascular disease Post-menopausal Raynaud's syndrome without gangrene Vitamin D deficiency Wears glasses Home Medications estradiol 0.5 mg tablet 0.25 mg PO DAILY 01/21/19 [History Last Taken Unknown] acetaminophen 650 mg tablet,extended release 650 mg PO Q8H PRN Pain 03/14/22 [History Last Taken Unknown] cholecalciferol (vitamin D3) 50 mcg (2,000 unit) capsule (Vitamin D3) 50 mcg PO DAILY 04/30/22 [History Last Taken Unknown] rosuvastatin 5 mg tablet 5 mg PO DAILY 07/24/23 [History Last Taken Unknown] Allergy/AdvReac Type Severity Reaction Status Date / Time pneumococcal vaccine Allergy Severe fever, Verified 07/24/23 03:26 [From Prevnar 13 (PF)] flu-like symptoms, severe redness and swelling in arm Family History Brother , Age 50 Myocardial infarction Brother , Age 72 Heart disease CAD (coronary artery disease) Father , Age 78 Heart disease, Onset Age: 40 Cancer stomach CAD (coronary artery disease) CABG Grandfather , Age 39 Myocardial infarction Mother , Age 89 Dementia Atrial fibrillation Diabetes Sister Atrial fibrillation Brother CAD (coronary artery disease) stents Sister Atrial fibrillation Surgical History History of appendectomy History of colonoscopy History of dilation and curettage History of hysterectomy Social History Smoking Status: Former smoker how long ago did patient quit smokin years ago alcohol intake: former details: currently in AA- Quit 9 years ago substance use type: does not use caffeine: Yes Type: coffee Number of servings: 3 ROS ROS ED Constitutional Constitutional ED: Denies chills or fever(s) Cardiovascular Cardiovascular: Reports as per HPI and chest pain; Denies palpitations Respiratory/Chest Respiratory/Chest: Denies cough or dyspnea Gastrointestinal Gastrointestinal: Reports abdominal pain, nausea and vomiting; Denies constipation or diarrhea Genitourinary Genitourinary ED: Denies dysuria or urinary frequency Musculoskeletal Musculoskeletal: Reports back pain and other Details: right rib pain ; Denies arthralgias or myalgias Integumentary Denies rash Neurologic Neurologic: Reports paresthesias; Denies headache(s) Psychiatric Psychiatric: Denies anxiety Hematologic/Lymphatic Hematologic/Lymphatic: Denies easy bleeding or easy bruising EXAM Physical Exam Const Vital Signs: 07/24/23 03:23 07/24/23 03:25 07/24/23 03:28 Temperature 96.8 F L Temperature Source Temporal Pulse Rate 75 Respiratory Rate 19 H Respiratory Effort Normal Non-Labored Respiratory Pattern Normal Blood Pressure 140/62 H Blood Pressure Mean 88 Pulse Ox 96 96 Oxygen Delivery Method Room Air Room Air 07/24/23 04:18 07/24/23 05:00 07/24/23 06:00 Temperature Temperature Source Pulse Rate 66 61 66 Respiratory Rate 13 16 16 Respiratory Effort Respiratory Pattern Blood Pressure 145/55 H 149/66 H 143/60 H Blood Pressure Mean 85 93 87 Pulse Ox 97 95 96 Oxygen Delivery Method Room Air 07/24/23 07:00 07/24/23 08:33 Temperature Temperature Source Pulse Rate 56 L Respiratory Rate 14 16 Respiratory Effort Respiratory Pattern Blood Pressure 151/61 H Blood Pressure Mean 91 Pulse Ox Oxygen Delivery Method Positive well nourished and well developed Constitutional Narrative: uncomfortable appearing General Appearance ED: well developed and NAD HEENT Reports moist mucous membranes Eyes PERRL and EOMs intact bilaterally Neck supple and no JVD Chest Wall inspection of chest normal and palpation of chest normal Resp normal respiratory effort Resp Narrative: Coarse breath sounds at the bases Auscultation: diminished lung sounds; Negative for rhonchi or wheezes Cardio regular rate, regular rhythm and no murmurs Peripheral Pulses: radial pulses present right 2+ and left 1+ and dorsalis pedis pulses present bilateral 1+ GI normal to inspection, nondistended, normoactive bowel sounds GI Narrative: Tenderness to palpation of the right upper quadrant Extremity normal to inspection General Extremety ED: Negative for edema General Extremity: Negative for edema Neuro oriented x3 Sensorium / Orientation: awake and alert Motor Exam: Negative for general weakness Psych mental status grossly normal Skin no rashes or lesions noted and no wounds Heart Score History: Moderately Suspicious ECG: Normal Age: >/= 65 years Risk Factors: 1 or 2 Risk Factors Troponin: </= Normal Limit Score: 4 MDM MDM MDM Narrative Medical decision making narrative: Patient is evaluated for sudden onset of chest pain rating to her right upper quadrant. She does have a symmetric radial pulses and with pain in her chest abdomen pelvis suspicion for aortic dissection is higher. EKG is not consistent with ACS. Patient is given fentanyl for pain control with improvement of her symptoms. CTA obtained as well as CBC, CMP and lipase delta high-sensitivity troponin is also obtained. Lab work is remarkable for significant leukocytosis of 22.1. Hemoglobin and platelets otherwise normal. CMP shows a mild transaminitis but bilirubin largely normal. Cardiac markers normal. Lipase is normal. CTA does not show any acute aortic or cardiac pathology however patient does have a very distended gallbladder. On repeat evaluation her pain now localizes more to the right upper quadrant however she states she is feeling much more comfortable after receiving the fentanyl. Given her right upper quadrant pain, vomiting, enlarged gallbladder and leukocytosis will obtain surgical consult. Case discussed with Dr. Suarez who does request a ultrasound of the gallbladder for further evaluation. Ultrasound is obtained which shows an enlarged gallbladder but no signs of acute cholecystitis at this time. Patient is reevaluated and states that her pain is worsening in her right upper quadrant again. I will give another dose of fentanyl and discussed the case again with surgery. Surgery does recommend try to GI cocktail and Protonix as suspicion for possible gastritis as a cause of her symptoms over cholecystitis. Will come down to evaluate the patient however. Patient is evaluated by surgery in the ER. Given her leukocytosis and continued pain will be admitted for HIDA scan for further evaluation of this right upper quadrant pain by general surgery. Will defer antibiotics at this time as it is not entirely clear if this is gastritis versus cholecystitis. Patient agreeable with plan of care. Patient made hemodynamically stable in the ER. Lab Data Attestation: I reviewed the patient's lab results. Labs: Laboratory Results - last 24 hr 07/24/23 07/24/23 03:29 06:13 WBC 22.1 H RBC 4.46 Hgb 13.7 Hct 42.0 MCV 94.2 MCH 30.7 MCHC 32.6 RDW Std Deviation 48.6 H RDW Coeff of Hoda 14.0 Plt Count 151 MPV 10.5 Immature Gran % (Auto) 0.300 Neut % (Auto) 51.9 Lymph % (Auto) 41.4 H Sawyer % (Auto) 5.3 Eos % (Auto) 0.6 Baso % (Auto) 0.5 Absolute Neuts (auto) 11.5 H Absolute Lymphs (auto) 9.14 H Nucleated RBC % 0 Differential Comment SCANNED Sodium 134 L Potassium 3.6 Chloride 102 Carbon Dioxide 26.0 Anion Gap 6 BUN 19 H Creatinine 0.92 Estim Creat Clear Calc 46.16 Est GFR (MDRD) Af Amer 76 Est GFR (MDRD) Non-Af 63 BUN/Creatinine Ratio 20.6 H Glucose 122 H Calcium 9.4 Magnesium 2.5 Total Bilirubin 0.80 Direct Bilirubin 0.36 H AST 87 H ALT 64 H Alkaline Phosphatase 76 Troponin I High Sens 9 8 Total Protein 7.5 Albumin 3.8 Globulin 3.7 Lipase 44 Radiography Chest X-Ray - ED: 1 View, Read by ED Physician, Read by Radiologist and No Acute Disease Diagnostic Testing: Clinical Impression(s) from Imaging Studies Chest X-Ray 07/24/23 03:28 IMPRESSION: COPD Electronically Signed: Benjamin Rosas MD at 4:12 EST , Chest/Abdomen/Pelvis CTA 07/24/23 04:12 IMPRESSION: Negative for PE. No aortic aneurysm or dissection. Stable tiny noncalcified subpleural nodule within the right upper lobe. No acute pulmonary infiltrates. Small hiatal hernia. Fatty infiltration of the liver. Interval development of gallbladder distention. No calcified gallstones or gallbladder wall thickening identified by CT. Correlation with ultrasound may be of benefit, as clinically indicated. Colonic diverticulosis without evidence for acute diverticulitis. Electronically Signed: Manny Higgins MD at 5:40 EST , Gallbladder Ultrasound 07/24/23 06:20 IMPRESSION: 1. Distended gallbladder with small stones but no secondary signs of acute cholecystitis. 2. Small simple appearing right renal cyst. Electronically Signed: Benjamin Rosas MD at 8:16 EST , Rhythm Strip Rhythm Strip: Sinus Rhythm Rate: 67 Ectopy: None EKG Initial EKG: Attestation: I personally reviewed and interpreted this EKG as follows: Interpretation: Sinus Rhythm Comments: Normal sinus rhythm at a rate of 67 bpm Normal axis Normal intervals Normal ST segments Management Discussion w/another healthcare provider: Nib Finisher Discharge Plan Triage Chief Complaint: Chest Pain ED Provider: Mary Jones Dx/Rx/DC Orders Clinical Impression: Leukocytosis, Non-cardiac chest pain, Gallstones, Nausea & vomiting, Abdominal pain, acute, right upper quadrant Prescriptions: No Action estradiol 0.5 mg tablet 0.25 mg PO DAILY acetaminophen 650 mg tablet extended release 650 mg PO Q8H PRN (Reason: Pain) cholecalciferol (vitamin D3) [Vitamin D3] 50 mcg (2,000 unit) Capsule 50 mcg PO DAILY rosuvastatin 5 mg tablet 5 mg PO DAILY Patient Comments: take 1 tablet by mouth once daily Primary Care Provider: Jane Sifuentes Referrals: Jane Sifuentes DO [Primary Care Provider] - Disposition Disposition: Acute Care Hospital [facility]
[2023-07-24] MEDS: Ondansetron 4 MG/2 ML Vial IV (04:19)
[2023-07-24] MEDS: fentaNYL 100 MCG/2 ML Ampul 50 MCG IV ×2 (04:19→08:42)
[2023-07-24 05:35] LABS: Reflex Troponin-HS? (from REC) Y
--- NOTE | 2023-07-24 06:20 | US_ITS ---
INDICATION: RUQ pain, abnormal CT EXAMINATION: US Abdomen Limited (quadrant) TECHNIQUE: Tee scale and color doppler imaging was performed of the right upper quadrant. COMPARISON: CT chest, abdomen and pelvis from 2 hours prior FINDINGS: LIVER: There is normal echotexture. No focal hepatic lesion. No significant intrahepatic biliary ductal dilatation. The right lobe of liver measures 13.5 cm in length. Main portal vein patent with normal directional flow. GALLBLADDER AND BILIARY TREE: Markedly distended gallbladder measures 12.5 cm length. Couple small stones within gallbladder lumen. No significant gallbladder wall thickening or pericholecystic fluid demonstrated. The proximal common bile duct measures 6 mm. Sonographic Gutierrez''s sign: Negative. PANCREAS: Unremarkable as visualized. RIGHT KIDNEY: Right kidney measures 9.9 cm in length. No hydronephrosis. Small anechoic, simple appearing 1.1 cm cyst at upper pole. VESSELS: Unremarkable as visualized. US/Gallbladder IMPRESSION: 1. Distended gallbladder with small stones but no secondary signs of acute cholecystitis. 2. Small simple appearing right renal cyst. Electronically Signed: Benjamin Rosas MD at 8:16 EST ,
[2023-07-24 06:47] LABS: Troponin-I HS 8 pg/mL (3.0-54.0)
[2023-07-24] MEDS: Mag Hydrox/Al Hydrox/Simeth 30 ML UDC PO (08:42)
[2023-07-24] MEDS: Pantoprazole Sodium 40 MG in 0.9% Normal Saline (100mL MB+) 100 ML 330 MG IV (08:58)
--- NOTE | 2023-07-24 09:14 | NURSING ---
MED SURG OBS DAWN CANAS ABD PAIN
--- NOTE | 2023-07-24 09:56 | NM_ITS ---
CLINICAL: 77-year-old female with history of right upper quadrant abdominal pain. RADIONUCLIDE HEPATOBILIARY SCINTIGRAPHY COMPARISON: Abdominal ultrasound report 07/24/2023 FINDINGS: Following the intravenous administration of 5.7 mCi of 99m Tc Mebrofenin, hepatobiliary images reveal: 1. Relatively prompt and homogeneous radiopharmaceutical concentration is noted by a normal sized liver. No parenchymal defects are identified. 2. Gallbladder activity is identified at 45 minutes post radiopharmaceutical administration. 3. Small intestinal tract is is not visualized during 60 minutes of pre-CCK image acquisition. 4. Washout of the radiopharmaceutical by the hepatic parenchyma appears qualitatively normal. Cholecystokinin (0.02 ug/kg) was administered intravenously over a 30-minute period. The post CCK gallbladder ejection fraction calculated at 20 minutes following Cholecystokinin administration was noted to be < 5 % (normal greater than 35%). There is continued nonvisualization of the small bowel following CCK provision. CT/Hepatobilliary Img w/Pharm Int IMPRESSION: 1. ABNORMAL 99m Tc Mebrofenin hepatobiliary imaging examination with Cholecystokinin. A. A gallbladder ejection fraction calculated to be less than 35% following the administration of Cholecystokinin is consistent with the presence of functional hepatobiliary disease (gallbladder and/or sphincter of Oddi dyskinesia) and/or organic hepatobiliary disease (chronic acalculous cholecystitis and/or cystic duct syndrome) in patients with intermediate to high pretest probabilities of hepatobiliary illness. (Pb Man et al, Journal of Nuclear Medicine 32:1695, 1991). B. Nonvisualization of small bowel activity following the administration of cholecystokinin likely represents a component of common distal bile duct obstruction in the presence of preserved hepatocellular function and normal gallbladder visualization. (Дмитрий and Дмитрий, J Nucl Med 33:542, 1992). Electronically Signed: Gianfranco Walton DO at 12:52 EST ,
--- NOTE | 2023-07-24 09:57 | PCM.HP.STD ---
HPI - General General Date of Admission: 07/24/23 Date of Service: 07/24/23 HPI Narrative DIEGO ALLEN, is a 77 F who presents with a 2-3 day history of right upper quadrant abdominal pain. Patient notes the pain was intermittent and came in waves. Patient was unsure if it was associated with food. Patient notes at 4 pm yesterday she had a club sandwich for dinner. She notes by the time she came back home she noted the right upper quadrant pain had returned. She states the pain progressively got worse by 10 pm. She had nausea and vomiting approximately 4-5 times followed by dry heaves. She attempted to lay in bed to allow the pain to go away. She was unable to withstand the pain any longer and came to the ED. She notes she had experienced a burning sensation in her esophagus last night for the first time since she had this pain. She took Gaviscon, which did not help. She denies a history of PUD or GERD. She states the right upper quadrant pain went into her back as well. She recalls having right upper quadrant pain intermittently over the last 3-5 years. She states she has not had any pain like last night. She notes an abdominal surgery history that includes an appendectomy in 1994 and total hysterectomy in 2005. She notes overall good health and is on minimal amount of medications. She denies a cardiac history or pulmonary history. She denies previous myocardial infraction or blood clots. CT scan of the ab/pel demonstrated: IMPRESSION: Negative for PE. No aortic aneurysm or dissection. Stable tiny noncalcified subpleural nodule within the right upper lobe. No acute pulmonary infiltrates. Small hiatal hernia. Fatty infiltration of the liver. Interval development of gallbladder distention. No calcified gallstones or gallbladder wall thickening identified by CT. Correlation with ultrasound may be of benefit, as clinically indicated. Colonic diverticulosis without evidence for acute diverticulitis. RUQ u/s demonstrated: GALLBLADDER AND BILIARY TREE: Markedly distended gallbladder measures 12.5 cm length. Couple small stones within gallbladder lumen. No significant gallbladder wall thickening or pericholecystic fluid demonstrated. The proximal common bile duct measures 6 mm. Sonographic Gutierrez''s sign: Negative. Labs remarkable for WBC 22.1. Liver enzymes noted for T. Bili 0.80, direct bili 0.36, AST 87, ALT 64, Alk phos 76. Lipase 44. [facility] Medical History Alopecia areata Atherosclerosis of coronary artery of [place] heart without angina pectoris Back pain Bullous lesion Cardiology follow-up encounter Chest pain Cystocele, midline Former smoker Hearing loss of both ears History of echocardiogram History of stress test Hyperlipidemia Kidney mass Loss of hearing Lung nodule Neutrophilic dermatosis Osteoporosis Panic disorder without agoraphobia Peripheral vascular disease Post-menopausal Raynaud's syndrome without gangrene Vitamin D deficiency Wears glasses Home Medications estradiol 0.5 mg tablet 0.25 mg PO DAILY 01/21/19 [History Last Taken Unknown] acetaminophen 650 mg tablet,extended release 650 mg PO Q8H PRN Pain 03/14/22 [History Last Taken Unknown] cholecalciferol (vitamin D3) 50 mcg (2,000 unit) capsule (Vitamin D3) 50 mcg PO DAILY 04/30/22 [History Last Taken Unknown] rosuvastatin 5 mg tablet 5 mg PO DAILY 07/24/23 [History Last Taken Unknown] Allergy/AdvReac Type Severity Reaction Status Date / Time pneumococcal vaccine Allergy Severe fever, Verified 07/24/23 03:26 [From Prevnar 13 (PF)] flu-like symptoms, severe redness and swelling in arm Family History Brother , Age 50 Myocardial infarction Brother , Age 72 Heart disease CAD (coronary artery disease) Father , Age 78 Heart disease, Onset Age: 40 Cancer stomach CAD (coronary artery disease) CABG Grandfather , Age 39 Myocardial infarction Mother , Age 89 Dementia Atrial fibrillation Diabetes Sister Atrial fibrillation Brother CAD (coronary artery disease) stents Sister Atrial fibrillation Surgical History History of appendectomy History of colonoscopy History of dilation and curettage History of hysterectomy Social History Smoking Status: Former smoker how long ago did patient quit smokin years ago alcohol intake: former details: currently in AA- Quit 9 years ago substance use type: does not use caffeine: Yes Type: coffee Number of servings: 3 ROS Constitutional Constitutional: Reports systems reviewed and no addt'l complaints, except as documented Eyes Eyes: Reports systems reviewed and no addt'l complaints, except as documented ENT HEENT: Reports systems reviewed and no addt'l complaints, except as documented Cardiovascular Cardiovascular: Reports systems reviewed and no addt'l complaints, except as documented Respiratory/Chest Respiratory/Chest: Reports systems reviewed and no addt'l complaints, except as documented Gastrointestinal Gastrointestinal: Reports systems reviewed and no addt'l complaints, except as documented Genitourinary Genitourinary: Reports systems reviewed and no addt'l complaints, except as documented Musculoskeletal Musculoskeletal: Reports systems reviewed and no addt'l complaints, except as documented Integumentary Integumentary: Reports systems reviewed and no addt'l complaints, except as documented Neurologic Neurologic: Reports systems reviewed and no addt'l complaints, except as documented Psychiatric Psychiatric: Reports systems reviewed and no addt'l complaints, except as documented Endocrine Endocrinology: Reports systems reviewed and no addt'l complaints, except as documented Hematologic/Lymphatic Hematologic/Lymphatic: Reports systems reviewed and no addt'l complaints, except as documented Allergic/Immunologic Allergic/Immunologic: Reports systems reviewed and no addt'l complaints, except as documented Vital Signs Vital Signs Vital Signs: 07/24/23 03:23 07/24/23 03:25 07/24/23 03:28 Temperature 96.8 F L Temperature Source Temporal Pulse Rate 75 Respiratory Rate 19 H Respiratory Effort Normal Non-Labored Respiratory Pattern Normal Blood Pressure 140/62 H Blood Pressure Mean 88 Pulse Ox 96 96 Oxygen Delivery Method Room Air Room Air 07/24/23 04:18 07/24/23 05:00 07/24/23 06:00 Temperature Temperature Source Pulse Rate 66 61 66 Respiratory Rate 13 16 16 Respiratory Effort Respiratory Pattern Blood Pressure 145/55 H 149/66 H 143/60 H Blood Pressure Mean 85 93 87 Pulse Ox 97 95 96 Oxygen Delivery Method Room Air 07/24/23 07:00 07/24/23 08:33 Temperature Temperature Source Pulse Rate 56 L Respiratory Rate 14 16 Respiratory Effort Respiratory Pattern Blood Pressure 151/61 H Blood Pressure Mean 91 Pulse Ox Oxygen Delivery Method Weight Weight: 125 lb 14.143 oz Body Mass Index (BMI) 20.2 Physical Exam Const alert, oriented x3 and no apparent distress HEENT normocephalic and head/scalp atraumatic Eyes PERRL Neck full ROM Lymph Lymphatic: no lymphadenopathy noted Chest inspection of chest normal Resp normal respiratory effort and clear to auscultation bilaterally Cardio regular rate and regular rhythm GI GI Narrative: Abdomen- soft, tenderness in the right upper quadrant and epigastric region. Positive Gutierrez's sign. Positive bowel sounds. no CVA tenderness Back/Spine no CVA tenderness Extremity normal to inspection Skin no rashes or lesions noted Neuro oriented x3, no focal motor deficits and no sensory deficits noted Psych mental status grossly normal and thought process normal Results Lab / Micro Data 07/24/23 03:29 07/24/23 03:29 Labs: Laboratory Results - last 24 hr 07/24/23 03:29: WBC 22.1 H, RBC 4.46, Hgb 13.7, Hct 42.0, MCV 94.2, MCH 30.7, MCHC 32.6, RDW Std Deviation 48.6 H, RDW Coeff of Hoda 14.0, Plt Count 151, MPV 10.5, Immature Gran % (Auto) 0.300, Neut % (Auto) 51.9, Lymph % (Auto) 41.4 H, Rhea % (Auto) 5.3, Eos % (Auto) 0.6, Baso % (Auto) 0.5, Absolute Neuts (auto) 11.5 H, Absolute Lymphs (auto) 9.14 H, Nucleated RBC % 0, Differential Comment SCANNED, Sodium 134 L, Potassium 3.6, Chloride 102, Carbon Dioxide 26.0, Anion Gap 6, BUN 19 H, Creatinine 0.92, Estim Creat Clear Calc 46.16, Est GFR (MDRD) Af Amer 76, Est GFR (MDRD) Non-Af 63, BUN/Creatinine Ratio 20.6 H, Glucose 122 H, Calcium 9.4, Magnesium 2.5, Total Bilirubin 0.80, Direct Bilirubin 0.36 H, AST 87 H, ALT 64 H, Alkaline Phosphatase 76, Troponin I High Sens 9, Total Protein 7.5, Albumin 3.8, Globulin 3.7, Lipase 44 07/24/23 06:13: Troponin I High Sens 8 Rhythm Strip Rhythm Strip: Sinus Rhythm Rate: 67 Ectopy: None Imaging Radiology Impression Chest X-Ray 07/24/23 03:28 IMPRESSION: COPD Electronically Signed: Benjamin Rosas MD at 4:12 EST , Chest/Abdomen/Pelvis CTA 07/24/23 04:12 IMPRESSION: Negative for PE. No aortic aneurysm or dissection. Stable tiny noncalcified subpleural nodule within the right upper lobe. No acute pulmonary infiltrates. Small hiatal hernia. Fatty infiltration of the liver. Interval development of gallbladder distention. No calcified gallstones or gallbladder wall thickening identified by CT. Correlation with ultrasound may be of benefit, as clinically indicated. Colonic diverticulosis without evidence for acute diverticulitis. Electronically Signed: Manny Higgins MD at 5:40 EST , Gallbladder Ultrasound 07/24/23 06:20 IMPRESSION: 1. Distended gallbladder with small stones but no secondary signs of acute cholecystitis. 2. Small simple appearing right renal cyst. Electronically Signed: Benjamin Rosas MD at 8:16 EST , Assessment & Plan Assessment/Plan (1) Abdominal pain, acute, right upper quadrant: PLAN: I am seeing this patient in conjunction with Dr. Suarez. He has independently evaluated this patient. Patient has an elevated white with mild elevation in her liver enzymes. RUQ u/s demonstrates gallstones and distended gallbladder No significant gallbladder wall thickening or pericholecystic fluid. We will plan to admit patient. The patient will undergo a HIDA scan with ejection fraction. We will keep patent on clear liquids. Once, HIDA scan results return, we will determine the next best course of action. Patient has had the opportunity to ask and have questions answered. Patient verbally understands and agrees with the plan. Thank you for allowing us to participate in this patient's care. Charges/Coding Visit Charges OBSV E&M: 15804 Observ/hosp same date L2
[2023-07-24] MEDS: oxyCODONE 5 MG Tablet PO ×2 (13:45→21:35)
[2023-07-24] MEDS: 0.9% Normal Saline (1000mL) 1,000 ML 100 ML IV (13:46)
[2023-07-24] MEDS: 0.9% Saline Lock 10 ML Syringe IV (13:53)
--- NOTE | 2023-07-24 15:52 | CHAPLAIN ---
Type of Pastoral Visit _x__ Initial Visit ___ Follow-up Visit ___ On-call Visit ___ General Patient Visit ___ Spiritual Assessment ___ Family Conference ___ Bereavement ___ Rapid Response ___ Code Blue ___ Other (describe below) Pastoral Care Referral From _x__ Patient ___ Family ___ Nurse ___ Physician ___ Communication Assistant ___ Melangeur Operator ___ Other (describe below) Sacrament/Intervention _x__ Active listening ___ Anointing ___ Orthodoxy ___ Bereavement ___ Communion _x__ Little exploration ___ _x__ Life review _x__ Prayer ___ Reconciliation ___ Sacrament of Sick _x__ Supportive presence ___ Wedding ___ Other (describe below) Pastoral Comments patient is waiting to be admitted to a room; pt reveals feelings of relief that this isn't my heart ; pt identifies self as a Catholic with a supportive quaker; pt's was with her earlier but went home realizing the wait is long; pt speaks of her family and her little; pt asks for a prayer and requests prayers for her sister that has significant health concerns
[2023-07-24] MEDS: Piperacil/Tazobactam 3.375 GM in 0.9% Normal Saline (50mL MB+) 50 ML IV ×2 (16:07→21:35)
[2023-07-24] MEDS: Acetaminophen 325 MG Tablet 650 MG PO (21:35)
[2023-07-25] VITALS (15 sets, daily range): BP systolic 97–134; BP diastolic 44–61; PULSE 51–95; RESP 14–18; TEMP 36.3–36.9; O2SAT 91–100; BMI 20.3
[2023-07-25] MEDS: 0.9% Normal Saline (1000mL) 1,000 ML 100 ML IV ×2 (02:05→14:18)
[2023-07-25] MEDS: Acetaminophen 325 MG Tablet 650 MG PO (03:27)
[2023-07-25] MEDS: Piperacil/Tazobactam 3.375 GM in 0.9% Normal Saline (50mL MB+) 50 ML IV ×2 (05:16→14:26)
[2023-07-25 06:57] LABS: Absolute Neutrophil Count 4.5 X10^3/uL (2.0-7.7); Basophil# 0.06 X10^3/uL; Basophil% 0.4 % (0-1); Eosinophil# 0.26 X10^3/uL; Eosinophils% 1.9 % (0-5); Hematocrit 35.2 % (37-47); Hemoglobin 11.2 g/dL (12.0-15.0); Lymphocyte % 59.5 % (19-41); Mean Corp Hgb Conc 31.8 g/dL (32-36); Mean Corpuscular Hgb 30.6 pg (27.0-32.0); Mean Corpuscular Volume 96.2 fL (81-99); Mean Platelet Vol. 10.1 fl (6.2-12.0); Monocyte# 0.81 X10^3/uL; Monocyte% 5.8 % (0-10); NRBC Flagged by Analyzer 0 % (0-5); Neutrophil % 32.2 % (47-70); POSITIVE DIFFERENTIAL YES; POSITIVE MORPHOLOGY YES; Platelet Count 126 K/mm3 (150-450); RBC Distribution Width CV 14.5 % (11.6-14.6); RBC Distribution Width SD 51.2 fl (35.1-43.9); Red Blood Count 3.66 M/mm3 (4.2-5.4)
[2023-07-25 07:07] LABS: Differential Indicated SCAN CRITERIA MET
[2023-07-25 07:20] LABS: ALB/GLOB Ratio 0.9 RATIO (0.9-2.4); AST(SGOT) 27 U/L (15-37); Alanine Aminotransfer ALT/SGPT 45 U/L (13-56); Albumin, Serum 2.7 g/dL (3.2-5.0); Alkaline Phosphatase 55 U/L (45-117); Anion Gap 2 (5-15); BUN 10 mg/dL (7-18); BUN/Creat Ratio 11.7 RATIO (10-20); Chloride 111 mmol/L (98-107); Creatinine, Serum 0.86 mg/dL (0.55-1.02); EST Glomerular Filtration Rate 68 mL/min (>60); Est Glom Filt Rate - Afr Amer 83 mL/min (>60); Estimated Creatinine Clearance 49.43 ml/min; Globulin 2.9 g/dL (2.2-4.2); Glucose 108 mg/dL (74-106); Potassium 3.8 mmol/L (3.5-5.1); Protein, Total 5.6 g/dL (6.4-8.2); Sodium Level 139 mmol/L (136-145)
--- NOTE | 2023-07-25 07:25 | RAD_ITS ---
STUDY: INTRAOPERATIVE CHOLANGIOGRAM. REASON FOR EXAM: Female, 77 years old. IOC IN OR FLUOROSCOPY TIME (if supplied): ( 12 seconds ) minutes/seconds. 21.99 mGy TECHNIQUE: An intraoperative cholangiogram was performed by the surgeon. Imaging was provided. COMPARISON: None. FINDINGS: The common bile duct is unremarkable. There is free flow of contrast into the duodenum. RAD/Cholangiogram/ O R,Initial IMPRESSION: Unremarkable intraoperative cholangiogram. Electronically Signed: Miguel Haider MD at 13:28 EST ,
--- NOTE | 2023-07-25 08:25 | GALL_PTH ---
PATHOLOGY RESULTS PATIENT: DIEGO ALLEN LOC: MS3 U#:[id number] AGE/SX: 77/F ROOM: [facility] [place] RE07/24/[address]: Dr. Alvarez Suarez MD : 1945 BED: 1 DIS: 07/26/2023 SPEC #: [id number] RECD: 07/26/23 07:27 STATUS: PERICO HOWARD #: [id number] SHEYLA: 07/25/23 08:[address]: Alvarez Suarez DEPT: SURGICAL PATHOLOGY RECD BY: Sera Quijano ENTERED: 07/26/23 07:27 SP TYPE: CHACHA DARNELL DR: Dr. Jane Sifuentes DO Tissues: Gallbladder, NOS Procedures: Surgery Specimen Level III HEADER OPERATION: Laparoscopic cholecystectomy with IOC PRE-OP DIAGNOSIS: Abdominal pain, acute, right upper quadrant TISSUE SUBMITTED: Gallbladder MICROSCOPIC DIAGNOSIS Gallbladder, cholecystectomy: Acute and chronic cholecystitis. AM:[place] 07/29/2023 MICROSCOPIC DESCRIPTION Slides are reviewed. GROSS DESCRIPTION Received is one container labeled with the patient's name and designated gallbladder. The specimen consists of a gallbladder measuring 10.0 cm in length and up to 4.0 cm in diameter. The external surface is pink-dash, smooth and glistening for the most part. Focally it is granular, hemorrhagic and contains cautery artifact. The gallbladder contains hemorrhagic bile and multiple blood clots. No stones are identified in the container or in the gallbladder. The mucosa is bile-stained and without any mass lesions. The gallbladder wall measures up to 0.2 cm in thickness. Sports Analyst sections from the gallbladder and the cystic duct are submitted in one cassette. / SJ:rg 07/26/2023 TC:2 CPT: 57682
[2023-07-25] MEDS: Lactated Ringers 1,000 ML 15 ML IV ×3 (09:00→12:24)
[2023-07-25] MEDS: Bupivacaine Mpf 0.5% 30 ML VIAL (11:12)
--- NOTE | 2023-07-25 11:16 | PCM.OPRPT ---
Report of Operation Date of Procedure: 07/25/23 Pre-Operative Diagnosis: 1. Cholelithiasis 2. Gallbladder dyskinesia 3. Abnormal HIDA imaging suggesting possible common bile duct obstruction Post-Operative Diagnosis: 1. Cholelithiasis 2. Gallbladder dyskinesia 3. Cholecystitis Surgery/Procedure Performed:: Laparoscopic cholecystectomy with intraoperative cholangiogram Description of Surgical Findings:: ? Acutely inflamed gallbladder with friable gallbladder wall resulting in inadvertent rent in the gallbladder body and spillage, locally, bile ? Cholangiogram showing antegrade filling of the common bile duct through the ampulla with initial small filling defect that disappeared with repeat study. There was delayed reflux of contrast up the common hepatic duct after placing patient in Trendelenburg positioning Surgeon: Alvarez Suarez supervisor belt and link assembly: Prerna [place] Type of Anesthesia: General/Supplemental Anesthesiologist: Phil Omalley Specimen's removed: Gallbladder Estimated Blood Loss (mL): 50 Description of Procedure: After proper identification in the preoperative holding area the patient was brought to the operating room where she was positioned supine on the operating room table. Preoperatively SCDs were placed and antibiotics were administered. General anesthesia was then induced. Patient's abdomen was prepped and draped in usual sterile fashion. A formal timeout was conducted to confirm both patient and the procedure. Procedure was begun with a supraumbilical incision which was extended deeply down to the level of the fascia. The fascia was elevated and incised, as well as the peritoneum. A finger sweep was performed to ensure there were no underlying adhesions and a 12 mm balloon trocar was inserted. Pneumoperitoneum was established at 15 mmHg. 3 additional trocars were placed in the epigastrium and in the right upper quadrant (3 x 5 mm). Inspection of the peritoneum revealed no inadvertent injury to the viscera below. The gallbladder was visualized with a mild to moderate degree of inflammation and distention. The gallbladder fundus was then grasped and elevated cephalad. Then, using careful dissection the peritoneum was opened and the structures of the hepatocystic triangle were delineated. Unfortunately as I tried to open the peritoneum laterally there was a thermal injury to the body of the gallbladder resulting in a inadvertent rent and spillage of medial bladder contents locally. These were immediately suctioned free of the peritoneum using our suction central supply manager device. Further dissection proceeded and once the critical view of safety was obtained, the cystic duct was singly clipped and partially divided with a ductotomy. A cholangiocatheter was fed into the proximal segment of the cystic duct and clipped into place. Using an Horton Blackstone clamp, a cholangiocatheter was fed into the proximal segment of the cystic duct and clamped into place. Under fluoroscopy a cholangiogram was then obtained showing a standard length cystic duct flowing into a common bile duct with unobstructed antegrade flow of contrast into the duodenum but what also appeared to be a small filling defect on the initial run that disappeared with a repeat cholangiogram (anesthesia was asked to administer 1 g of glucagon to try to facilitate relaxation of the sphincter of Oddi and promote passage). Initially, there was no retrograde flow through the common hepatic duct proper hepatic ducts, but after placing patient in Trendelenburg positioning this filling was also noted. Satisfied with this result, the cholangiocatheter was withdrawn and the proximal cystic duct was sealed with clips and the cystic duct was completely transected. The same process was used for the cystic artery. The gallbladder was then removed from the gallbladder fossa with the use of electrocautery. Selective electrocautery was used to obtain hemostasis in the gallbladder fossa. The gallbladder was placed in an Endo Catch bag and removed from the peritoneum. Morison's pouch was irrigated and the effluent was suctioned free of the peritoneum. Hemostasis was again confirmed. Pneumoperitoneum was evacuated and the fascia of the 12 mm port sites was closed with #1Vicryl in a [id number] fashion. A total of 30 mL of anesthetic was injected at the port sites for postoperative pain control. The skin of each port site was then closed in subcuticular fashion using 4-0 Monocryl. Steri-Strips and bandages were applied as dressings. Patient tolerated the procedure well without any apparent complications. On emergence from their anesthetic the patient was taken to PACU for ongoing recovery. Complications None Admit VTE Documentation VTE Mechan Device Prophylaxis: SCD's Procedures Digestive 40xxx-49xxx: 74409 Laparo cholecystectomy/graph
--- NOTE | 2023-07-25 14:10 | CASEMGMT ---
RN OSIRIS Assessment: Face to Face with pt for initial transition planning/care coordination assessment. RN CM introduced self and role at [facility], pt voices understanding and consents to assessment. Pt is A&O x4 and answers all questions appropriately at this time. Pt sitting up in bed in no distress with and nurse at bedside. Care providers, pharmacy, and demographics verified/updated. Admitting Dx:R upper quadrant pain PCP:[facility] Specialists:anant Pandya Pharmacy: Insurance: [employer] Prescription Benefit: yes LNOK: Harrison Rivers, ; Familia Rivers, son Living Arrangements: Pt lives with in a single story home with 2 steps to enter. Pt reports she is I in ADL's and denies concerns at home. Transportation: Pt drives self and denies concerns with transportation. DME:Denies HHC/SNF: Denies hx of Pt states no concerns with going home at time of dc. Pt states no further concerns/needs. CM to follow. Advised pt to ask CM if any further question/concerns/needs arise, voices understanding. Pt Goal: Home Plan: Home
[2023-07-25] MEDS: oxyCODONE 5 MG Tablet PO (18:06)
[2023-07-25] MEDS: DiphenhydrAMINE 25 MG Capsule PO (21:48)
[2023-07-26 03:06] VITALS: BMI 20.3
[2023-07-26] MEDS: oxyCODONE 5 MG Tablet PO (03:18)
[2023-07-26] MEDS: Acetaminophen 325 MG Tablet 650 MG PO (03:19)
[2023-07-26 03:21] VITALS: BP 121/60; PULSE 72; RESP 16; TEMP 36.6; O2SAT 95
[2023-07-26 06:02] VITALS: BP 130/64; PULSE 75; RESP 16; TEMP 36.7; O2SAT 96
[2023-07-26 06:30] LABS: Absolute Lymphocyte Count 5.67 X10^3/uL (0.83-4.51); Absolute Neutrophil Count 8.2 X10^3/uL (2.0-7.7); Basophil# 0.03 X10^3/uL; Basophil% 0.2 % (0-1); Eosinophil# 0.04 X10^3/uL; Eosinophils% 0.3 % (0-5); Hematocrit 31.4 % (37-47); Hemoglobin 10.3 g/dL (12.0-15.0); Lymphocyte # 5.67 X10^3/ul (0.83-4.51); Lymphocyte % 37.4 % (19-41); Mean Corp Hgb Conc 32.8 g/dL (32-36); Mean Corpuscular Hgb 30.3 pg (27.0-32.0); Mean Corpuscular Volume 92.4 fL (81-99); Mean Platelet Vol. 10.6 fl (6.2-12.0); Monocyte# 1.12 X10^3/uL; Monocyte% 7.4 % (0-10); NRBC Flagged by Analyzer 0 % (0-5); Neutrophil # 8.24 X10^3/uL (2.7-7.7); Neutrophil % 54.3 % (47-70); POSITIVE DIFFERENTIAL YES; POSITIVE MORPHOLOGY YES; Platelet Count 125 K/mm3 (150-450); RBC Distribution Width CV 14.2 % (11.6-14.6); RBC Distribution Width SD 48.1 fl (35.1-43.9); White Blood Count 15.2 K/mm3 (4.4-11.0)
[2023-07-26 06:39] LABS: ALB/GLOB Ratio 0.9 RATIO (0.9-2.4); AST(SGOT) 39 U/L (15-37); Alanine Aminotransfer ALT/SGPT 52 U/L (13-56); Albumin, Serum 2.9 g/dL (3.2-5.0); Alkaline Phosphatase 58 U/L (45-117); Anion Gap 4 (5-15); BUN 9 mg/dL (7-18); BUN/Creat Ratio 11.5 RATIO (10-20); Calcium,Total 8.7 mg/dL (8.5-10.1); Chloride 105 mmol/L (98-107); Creatinine, Serum 0.78 mg/dL (0.55-1.02); EST Glomerular Filtration Rate 75 mL/min (>60); Est Glom Filt Rate - Afr Amer 91 mL/min (>60); Estimated Creatinine Clearance 53.18 ml/min; Globulin 3.1 g/dL (2.2-4.2); Glucose 108 mg/dL (74-106); Magnesium 2.4 mg/dL (1.6-2.6); Phosphorus 2.2 mg/dL (2.5-4.9); Potassium 4.1 mmol/L (3.5-5.1); Sodium Level 133 mmol/L (136-145)
[2023-07-26 07:00] LABS: Differential Indicated SCAN CRITERIA MET
--- NOTE | 2023-07-26 07:01 | DCINST_ITS ---
Discharge Instructions Diet Discharge Diet: No restrictions Activity Discharge Activity: May Not Drive (No driving while using narcotic pain medication) and May Shower (Postoperative day 1) May shower in (days): 1 Ice area for (Minutes): 20 Lifting Restrictions: No lifting greater than 15 pounds for 2 weeks after surgery Dressing / Incision Call your doctor if your incision/area has: Continuous Slow Oozing, Increased Pain/ Swelling, Increased Redness, Foul Smelling Discharge and Swelling at the incision site Call your doctor if you observe: Fever of 101 or Higher Remove Dressing in: 1 day (Please leave Steri-Strips intact until they fall off spontaneously or are taken off at your follow-up visit) Cleanse incision/area with: Soap & Water Follow Up Care Please Follow Up With: Alvarez Suarez MD When: 7-10days postop Test Results: Test results from this visit will be discussed in further detail at your follow- up appointment, if applicable. Discharge Plan Admission Admit Date/Time: 07/24/23 09:46 Primary Reason for Your Visit: Right upper quadrant discomfort and cholecystec deann Attending Provider: Alvarez Suarez Primary Care Provider: Jane Sifuentes Discharge Orders/Prescriptions Prescriptions: New oxycodone 5 mg Tablet 5 mg PO Q4H PRN PRN (Reason: Pain Score 4-10) 3 Days Qty: 10 0RF Continued estradiol 0.5 mg tablet 0.25 mg PO DAILY acetaminophen 650 mg tablet extended release 650 mg PO Q8H PRN (Reason: Pain) cholecalciferol (vitamin D3) [Vitamin D3] 50 mcg (2,000 unit) Capsule 50 mcg PO DAILY rosuvastatin 5 mg tablet 5 mg PO DAILY Patient Comments: take 1 tablet by mouth once daily diphenhydramine HCl [NightTime Sleep Aid (diphen)] 25 mg capsule 25 mg PO QHS Referrals / Follow Up: Jane Sifuentes DO [Primary Care Provider] - Alvarez Suarez MD [Med Staff - Active Staff] - Disposition Disposition (needs filled in before D/C Order can be placed): Home, Self Care
[2023-07-26 08:02] VITALS: O2SAT 94
[2023-07-26 08:12] LABS: Differential Comment SCANNED
--- NOTE | 2023-07-26 08:45 | DS.PCM_ITS ---
Providers Date of Admission: 07/24/23 Primary Care Physician: Dr. Jane Sifuentes DO Reason For Visit: RIGHT UPPER QUADRANT PAIN Diagnosis Discharge Diagnosis (1) Abdominal pain, acute, right upper quadrant: Status: Acute Code(s): R10.11 - Right upper quadrant pain Medications at Discharge Home Medications estradiol 0.5 mg tablet 0.25 mg PO DAILY 01/21/19 acetaminophen 650 mg tablet,extended release 650 mg PO Q8H PRN Pain 03/14/22 cholecalciferol (vitamin D3) 50 mcg (2,000 unit) capsule (Vitamin D3) 50 mcg PO DAILY 04/30/22 rosuvastatin 5 mg tablet 5 mg PO DAILY 07/24/23 diphenhydramine HCl 25 mg capsule (NightTime Sleep Aid (diphenhydramine)) 25 mg PO QHS sleep 07/25/23 oxycodone 5 mg tablet 5 mg PO Q4H PRN PRN Pain Score 4-10 3 days #10 tabs 07/26/23 Hospital Course Operations cholecystecomy (07/25/2023) Summary of Care Provided Hospital Course: Patient is 77-year-old female who was evaluated overnight on 07/23/2023 for complaints of severe right upper quadrant pain with associated nausea and vomiting. CT of the abdomen had shown a distended gallbladder and CBC was remarkable for his leukocytosis of over 20,000. There is also mild derangement of patient's liver function testing. I recommended a follow-up ultrasound which was performed and showed only evidence of cholelithiasis and was without secondary evidence for cholecystitis. However, patient remained tender to palpa tion of the right upper quadrant and was interested in further inpatient investigation given her symptoms. Thus, I recommended we proceed with HIDA imaging to further evaluate and this was undertaken on 07/24/2023. Ultimately this demonstrated visualization of the gallbladder, but showed significant gallbladder dysfunction with a depressed ejection fraction as well as failure of contrast entry to the small bowel despite CCK administration. Nuclear medicine shared this was concerning for possible common bile duct obstruction. Therefore, despite gallbladder visualization with HIDA I recommended we proceed for cholecystectomy with cholangiography based on these latter 2 abnormalities. Patient was receptive and the surgery was undertaken in uncomplicated fashion on 07/25/2023. Immediately postop patient exclaim she was surprised at how well she did feel. Postoperative day 1 she reported sleeping well until approximately 3 AM when she began with some incisional discomfort but was otherwise reporting that she felt ready for discharge to home. Thus we discussed postoperative wound care and activity restrictions as well as expectation for outpatient follow-up. Mrs. Rivers reported understanding of this information and pledged to call for outpatient follow-up. With these arrangements in place I granted discharge to home and submitted a prescription for a small amount of oxycodone to assist with patient's postoperative pain control. Physical Exam Const alert, oriented x3 and no apparent distress GI GI Narrative: Mild serosanguineous drainage to supraumbilical incision dressing. Abdomen nondistended, patient with expected tenderness about incision sites but otherwise soft and unremarkable. Weight / BMI Weight Weight: 126 lb 1.671 oz Body Mass Index (BMI) 20.3 ABG / Lab / Microbiology Data 07/26/23 05:45 07/26/23 05:45 Laboratory: Laboratory Results - last 24 hr 07/26/23 05:45: WBC 15.2 H, RBC 3.40 L, Hgb 10.3 L, Hct 31.4 L, MCV 92.4, MCH 30.3, MCHC 32.8, RDW Std Deviation 48.1 H, RDW Coeff of Hoda 14.2, Plt Count 125 L, MPV 10.6, Immature Gran % (Auto) 0.400, Neut % (Auto) 54.3, Lymph % (Auto) 37.4, [place] % (Auto) 7.4, Eos % (Auto) 0.3, Baso % (Auto) 0.2, Absolute Neuts (auto) 8.2 H, Absolute Lymphs (auto) 5.67 H, Nucleated RBC % 0, Differential Comment SCANNED, Sodium 133 L, Potassium 4.1, Chloride 105, Carbon Dioxide 24.0, Anion Gap 4 L, BUN 9, Creatinine 0.78, Estim Creat Clear Calc 53.18, Est GFR (MDRD) Af Amer 91, Est GFR (MDRD) Non-Af 75, BUN/Creatinine Ratio 11.5, Glucose 108 H, Calcium 8.7, Phosphorus 2.2 L, Magnesium 2.4, Total Bilirubin 0.80, AST 39 H, ALT 52, Alkaline Phosphatase 58, Total Protein 6.0 L, Albumin 2.9 L, Globulin 3.1, Albumin/Globulin Ratio 0.9 Radiography Diagnostic Testing: Radiology Impression Cholangiogram 07/25/23 07:25 IMPRESSION: Unremarkable intraoperative cholangiogram. Electronically Signed: Miguel Haider MD at 13:28 EST , D/C Instructions Discharge Diet: No restrictions May shower in (days): 1 Ice area for (Minutes): 20 Call your doctor if your incision/area has: Continuous Slow Oozing, Increased Pain/ Swelling, Increased Redness, Foul Smelling Discharge and Swelling at the incision site Call your doctor if you observe: Fever of 101 or Higher Cleanse incision/area with: Soap & Water Please Follow Up With: Alvarez Suarez MD When: 7-10days postop Meaningful Use Info Meaningful Use Diagnoses (Choose all that apply): None applicable Discharge Plan Admission Admit Date/Time: 07/24/23 09:46 Primary Reason for Your Visit: Right upper quadrant discomfort and cholecystecto my Attending Provider: Alvarez Suarez Primary Care Provider: Jane Sifuentes Discharge Orders/Prescriptions Prescriptions: New oxycodone 5 mg Tablet 5 mg PO Q4H PRN PRN (Reason: Pain Score 4-10) 3 Days Qty: 10 0RF Continued estradiol 0.5 mg tablet 0.25 mg PO DAILY acetaminophen 650 mg tablet extended release 650 mg PO Q8H PRN (Reason: Pain) cholecalciferol (vitamin D3) [Vitamin D3] 50 mcg (2,000 unit) Capsule 50 mcg PO DAILY rosuvastatin 5 mg tablet 5 mg PO DAILY Patient Comments: take 1 tablet by mouth once daily diphenhydramine HCl [NightTime Sleep Aid (diphen)] 25 mg capsule 25 mg PO QHS Referrals / Follow Up: Jane Sifuentes DO [Primary Care Provider] - Alvarez Suarez MD [Med Staff - Active Staff] - Disposition Disposition (needs filled in before D/C Order can be placed): Home, Self Care Charges/Coding Visit Charges Inpatient E&M: 18778 Disch Hosp
[2023-07-26 09:06] VITALS: BP 123/55; PULSE 76; RESP 18; TEMP 36.5; O2SAT 100
[2023-07-26 09:24] LABS: Pathologist Review Reviewed
--- NOTE | 2023-07-26 10:05 | PHA.DC.MC.R ---
Pharmacy [facility] has performed discharge medication reconciliation and counseling for this patient. The patient's discharge medication list was reviewed for discrepancies and discrepancies were resolved. The patient was counseled on the following discharge medications and changes in medications for homegoing were reviewed. 1. OXYCODONE The Reason for Use, instructions for use, and potential side effects were reviewed for all new medications. The patient's questions regarding all of their medications were answered. The patient was able to verbally demonstrate an understanding of their discharge medications. Medications at Discharge Home Medications estradiol 0.5 mg tablet 0.25 mg PO DAILY 01/21/19 acetaminophen 650 mg tablet,extended release 650 mg PO Q8H PRN Pain 03/14/22 cholecalciferol (vitamin D3) 50 mcg (2,000 unit) capsule (Vitamin D3) 50 mcg PO DAILY 04/30/22 rosuvastatin 5 mg tablet 5 mg PO DAILY 07/24/23 diphenhydramine HCl 25 mg capsule (NightTime Sleep Aid (diphenhydramine)) 25 mg PO QHS sleep 07/25/23 oxycodone 5 mg tablet 5 mg PO Q4H PRN PRN Pain Score 4-10 3 days #10 tabs 07/26/23
== END 2023-07-26 10:33 | disposition home or self-care (01) | DRG 418 ==
LOC: ED 09:13 → MS3 10:09
PROVIDERS: Physician Assistant; Admitting Provider Surgery; Emergency Provider Emergency Medicine; PCP Internal Medicine; Visit Provider Surgery
PROC: 0FT44ZZ Resection of Gallbladder, Percutaneous Endoscopic Approach (ICD-10-PCS; CPT 47610; principal; 2023-07-25 08:05)
DX: K80.51 Calculus of bile duct without cholangitis or cholecystitis with obstruction (principal); S36.12 Injury of gallbladder; K76.0 Fatty (change of) liver, not elsewhere classified; E78.5 Hyperlipidemia, unspecified; K29.70 Gastritis, unspecified, without bleeding; K82.8 Other specified diseases of gallbladder; K57.30 Diverticulosis of large intestine without perforation or abscess without bleeding; I25.10 Atherosclerotic heart disease of native coronary artery without angina pectoris; K44.9 Diaphragmatic hernia without obstruction or gangrene; R91.1 Solitary pulmonary nodule; Z87.891 Personal history of nicotine dependence; R07.89 Other chest pain
CPT/HCPCS: 36415; 71046; 71275; 74174; 74300; 74301; 76000; 76705; 78227; 80048; 80053; 80076; 83690; 83735; 84100; 84484; 85025; 88304; 93005; 94668; 99252; 99284; A9537; J7030; J7120; Q9967; A4216; G0463; J1610; J2405; J2805

== ENCOUNTER → 2024-03-03 | Outpatient (CLI) | payer MEDICARE, SELFPAY ==
--- NOTE | 2024-03-03 10:00 | RAD_ITS ---
STUDY: AIR CONTRAST ESOPHAGRAM AND UPPER GI SERIES REASON FOR EXAM: Female, 78 years old. Epigastric pain FLUOROSCOPY TIME (if supplied): (1 minute and 8 seconds) minutes/seconds. 19.3 mGy.. 28 fluoroscopic images were obtained. TECHNIQUE: SINGLE CONTRAST AND AIR CONTRAST FLUOROSCOPIC IMAGES. COMPARISON: None. FINDINGS: The cervical esophagus demonstrates normal motility without aspiration. There is no stricture or extrinsic mass effect. No intraluminal polypoid mass is identified. The thoracic esophagus distends well without stricture or mucosal fold thickening. No mucosal ulcerations are identified. There is no extrinsic mass effect. There are no diverticula. No hiatal hernia or gastroesophageal reflux was identified. The stomach distends well without mucosal fold thickening or mucosal ulceration. There is no intraluminal mass. The duodenal bulb is freely distensible without deformity or ulceration. The duodenal sweep is normal in position and caliber. RAD/Upper GI w/BA Swallow IMPRESSION: Normal air-contrast upper GI series. Electronically Signed: Miguel Haider MD at 14:05 EDT ,
== END | disposition home or self-care (01) ==
LOC: RAD 09:58
PROVIDERS: PCP Internal Medicine; Referring Provider Surgery; Visit Provider Surgery
DX: R10.13 Epigastric pain (principal)
CPT/HCPCS: 74246

== ENCOUNTER 2024-03-05 08:36 | Day surgery (SDC) | payer MEDICARE, SELFPAY ==
[2024-03-05] VITALS (7 sets, daily range): BP systolic 111–132; BP diastolic 48–65; PULSE 51–58; RESP 16–18; TEMP 36.1–36.3; O2SAT 97–100; BMI 20.5
--- NOTE | 2024-03-05 08:52 | PCM.HP.BLA ---
History and Physical Date of Admission: 03/05/24 MR#: [id number] Acct: [id number] Name: DIEGO ALLEN Rep #: [id number] : 1945 Provider: Dr. 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 Required: No Is patient in pain?: No Allergies pneumococcal vaccine (From Prevnar 13 (PF)) Allergy (Severe, Verified 02/07/24 13:38) fever, flu-like symptoms, severe redness and swelling in arm Medications ?Medication ?Instructions ?Recorded ?Confirmed ?Type estradiol 0.5 mg tablet 0.25 mg PO DAILY 01/21/19 02/07/24 History acetaminophen 650 mg 650 mg PO Q8H PRN Pain 03/14/22 02/07/24 History tablet,extended release cholecalciferol (vitamin D3) 50 50 mcg PO DAILY 04/30/22 02/07/24 History mcg (2,000 unit) capsule (Vitamin D3) rosuvastatin 5 mg tablet 5 mg PO DAILY 07/24/23 02/07/24 History diphenhydramine 25 1 tab PO QHS PRN 02/07/24 02/07/24 History mg-acetaminophen 500 mg tablet (Tylenol PM Extra Strength) Have you fallen in the past year?: No PFSH Medical History Loss of hearing Wears glasses Post-menopausal Back pain Former smoker History of echocardiogram History of stress test Cardiology follow-up encounter Chest pain Cystocele, midline Bullous lesion Kidney mass Hearing loss of both ears Hyperlipidemia Vitamin D deficiency Atherosclerosis of coronary artery of [place] heart without angina pectoris Panic disorder without agoraphobia Raynaud's syndrome without gangrene Peripheral vascular disease Alopecia areata Neutrophilic dermatosis Osteoporosis Lung nodule Surgical History Status post laparoscopic cholecystectomy History of colonoscopy History of dilation and curettage History of hysterectomy History of appendectomy Family History Brother , Age 50 Myocardial infarctionBrother , Age 72 Heart disease CAD (coronary artery disease)Father , Age 78 Heart disease, Onset Age: 40 Cancer stomach CAD (coronary artery disease) CABGGrandfather , Age 39 Myocardial infarctionMother , Age 89 Dementia Atrial fibrillation DiabetesSister Atrial fibrillationBrother CAD (coronary artery disease) stentsSister Atrial fibrillation Social History Smoking Status: Former smoker how long ago did patient quit smokin years ago alcohol intake: former details: currently in AA- Quit 9 years ago substance use type: does not use caffeine: Yes Type: coffee Number of servings: 3 HPI HPI HPI: Patient is a 78-year-old female who is known to me from a laparoscopic cholecystectomy performed 07/25/2023 and who presents for this afternoon due to concerns about postprandial discomfort. They are referred for surgical consultation from Dr. Sifuentes and Dr. Escamilla. Mrs. Allen states that her bulging discomfort started around the time of her recovery from her gallbladder. She notes that the discomfort starts even while she is still eating and this leads to her eating only half a meal and putting the rest the side in the fridge. She further describes it as food does not go down as easily and confirms that it feels like it is getting stuck. Along with midepigastric discomfort she notes that sometimes there will be discomfort under her right rib cage. Associated symptoms include heartburn, nausea, and bloating. She notes that the heartburn is to be expected particularly after ingestion of any spicy foods and she will require either Gaviscon or Tums?medications that she has never had much need for previously. She shares that she tried a prescription for 40 mg daily x 1 week, however, she did not have any relief of her symptoms and decided to discontinue. Despite her limited oral intake and discomfort she denies any weight loss. ROS General General: No weight change, appetite, fatigue, colon cancer, breast cancer or weakness HEENT HEENT: Yes eye surgery; No difficulty swallowing, eye injury, swollen glands or hoarseness Endo Endocrine: No thyroid disease, diabetes mellitus, thyroid cancer, Hair loss, heat intolerance or cold intolerance Skin Skin: Yes rash; No changing moles Musc Musculoskeletal: No back problems, arthritis, rheumatoid arthritis, gout or joint pain Cardio Cardiovascular: No murmur, pacemaker, heart disease, atrial fibrillation, high blood pressure, heart attack, heart stent, palpitations, shortness of breat with exertion or chest pain Psych Psychiatric: No depression, anxiety or hearing voices Resp Respiratory: No shortness of breath, No sleep apnea, No cough, No COPD, No asthma, No emphysema and No wheezing Gastro Gastrointestinal: No abdominal pain, No nausea or vomiting, No diarrhea, Yes constipation, No blood in stool, No acid reflux, Yes hemorrhoids, No ulcers, No gallbladder problem and No black,tarry stools Elias Hematologic: No blood thinners, No blood disorders, No bleeding, No anemia and No blood clots Neuro Neurologic: No system reviewed and no additional complaints, except as documented, No as per HPI, No abnormal gait, No abnormal hearing, No abnormal movements, No abnormal speech, No behavioral changes, No burning sensations, No confusion, No convulsions, No disequilibrium, No dizziness, No localized weakness, No frequent falls, No headache(s), No lack of coordination, No loss of vision, No memory loss, Yes numbness, No other visual disturbances, No radicular pain, No restless legs, No sensory deficit, No syncope, Yes tingling, No tremor(s), No weakness and No other Exam Const General: cooperative, comfortable and well groomed Orientation: alert, awake and oriented x3 Resp Effort & Inspection: normal respiratory effort GI Other: Well?healed port site incisions, nondistended, soft, minimally tender to palpation (tenderness elicited mild intensity in the epigastrium only) Assessment and Plan Assessment and Plan (1) Epigastric pain: Status: Acute Comment: Patient is a 78-year-old female who presents for postprandial discomfort over the past 6 months. She attributes the onset to roughly the same time course as her recovery from a laparoscopic cholecystectomy that I performed in July. Differential for her complaints is rather broad but includes?given the temporal relationship?bile reflux gastritis as well as peptic ulcer, hiatal hernia, H. pylori infection, etc.? She has started and stopped a prescription for a proton pump inhibitor that was ordered by Dr. Escamilla. I shared with her frankly that she would do best to give this medication a longer time to act before making a final decision about its helpfulness. She stated that she would be willing to do so. In the meantime we will obtain a upper GI with barium esophagram to evaluate for anatomical and physiologic abnormalities with her swallow and upper GI processing of food bolus. I have also scheduled her for EGD with biopsy. Plan: ? Patient recommended to resume omeprazole every morning ? Upper GI with barium esophagram ? EGD (patient notified that she will require a wrecker driver the day of the procedure) with biopsy planned for H. pylori rule out and as needed Orders: I have examined the patient the following changes are noted: Patient shares that in the short interval since our last visit she experienced an adverse reaction to a Prevnar vaccine and has significant inflammatory changes to her left upper extremity that is being treated by her PCP with an IV infusion. She additionally experienced a ground-level fall at home and had a partially fractured right elbow. Lastly I discussed with her the results of her recently completed upper GI study that did not show any anatomical abnormalities. We proceeded with an overview of the planned procedure today as well as postprocedure results reporting. Patient denies any further questions. Will thus proceed to the endoscopy suite for planned EGD.
[2024-03-05] MEDS: Lactated Ringers 1,000 ML 15 ML IV (09:20)
--- NOTE | 2024-03-05 09:32 | PCM.PRE.AN2 ---
ASA Classification* ASA Classification ASA Classification: 2 Assessment & Plan Anesthesia* Anesthesia Assessment Anesthesia Assessment: Discussed sedation and/or anesthesia options, risks, benefits, and alternatives with patient/parents/legal guardian/POA. Questions invited. The patient/parents/legal guardian/POA seems to understand and agrees to proceed with anesthesia plan. Reviewed the physical assessment, medical history, allergy history and patient home medications list prior to surgery/procedure/anesthetic and documented any changes. Performed airway and anesthesia risk assessments. Anesthesia Type Anesthesia Type: MAC History Source History Obtained from:: Patient and Chart Anesthesia Focused Assessment* Temperature: 97.3 F Pulse Rate: 58 Blood Pressure: 132/65 Respiratory Rate: 18 Pulse Ox: 100 Oxygen Delivery Method: Room Air Airway Assessment Mouth opens: >3 cm Mallampati Score: III Teeth Condition: Partial (Patient has a front top permanent bridge.) Neck Range of motion (ROM): Full ROM Focused Labs Anesthesia Preop lab: CBC WBC 15.2 K/mm3 (4.4-11.0) H 07/26/23 05:45 RBC 3.40 M/mm3 (4.2-5.4) L 07/26/23 05:45 Hgb 10.3 g/dL (12.0-15.0) L 07/26/23 05:45 Hct 31.4 % (37-47) L 07/26/23 05:45 Plt Count 125 K/mm3 (150-450) L 07/26/23 05:45 CHEMISTRY Potassium 4.1 mmol/L (3.5-5.1) 07/26/23 05:45 Sodium 133 mmol/L (136-145) L 07/26/23 05:45 Magnesium 2.4 mg/dL (1.6-2.6) 07/26/23 05:45 Phosphorus 2.2 mg/dL (2.5-4.9) L 07/26/23 05:45 BUN 9 mg/dL (7-18) 07/26/23 05:45 Creatinine 0.78 mg/dL (0.55-1.02) 07/26/23 05:45 Glucose 108 mg/dL (74-106) H 07/26/23 05:45 TSH 2.54 uIU/mL (0.358-3.74) 07/25/21 15:18 COAG Pre-Assessment Diagnosis/Proposed Procedure Planned Operative Procedure(s): EGD Anesthesia History 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 When Was Last Pacemaker Check QUESTION #4 FULL TEXT: You/Your Family Experience fever (hyperthermia) with Anesthesia Last Oral Intake Last Oral intake: Last Oral Intake NPO since 23:00 03/05/24 09:15 Meds taken in AM with sips of No 03/05/24 09:15 water? 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 Female Yes 03/04/24 15:02 HX of Motion Sickness No 03/04/24 15:02 HX of N/V After Surgery No 03/04/24 15:02 Non-Smoker Yes 03/04/24 15:02 Duration of Surgery greater No 03/04/24 15:02 than 60 minutes Number of Risk Factors 2 03/04/24 15:02 PONV Score Moderate Risk 03/04/24 15:02 Height & Weight Height & Weight: Anesthesia: Height & Weight Height 5 ft 6 in 03/05/24 09:15 Weight: 57.5 kg 03/05/24 09:15 Body Mass Index (BMI) 20.5 03/05/24 09:15 Respiratory Assessment Respiratory Assessment - receiving tank operator: Respiratory Tract Infection Hx - receiving tank operator Hx Respiratory Tract Infection No 03/04/24 15:02 STOP Sleep Apnea STOP Sleep Apnea - receiving tank operator: STOP Sleep Apnea - receiving tank operator Hx Hypertension No 03/04/24 15:02 Hx Sleep Apnea No 03/04/24 15:02 CPAP No 07/25/23 11:25 BIPAP Do you snore loudly (louder No 03/04/24 15:02 than talking or can be heard Do you often feel tired/ No 03/04/24 15:02 fatigued/ sleepy during daytime? Has anyone observed you stop No 03/04/24 15:02 breathing during sleep? STOP Results Negative 03/04/24 15:02 QUESTION #5 FULL TEXT : Do you snore loudly (louder than talking or can be heard through closed doors)? 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 Specify any problems Hx of Preganancy in last 3 N/A 03/04/24 15:02 Months Nurse Filling Out Transfusion NBUCHER 03/04/24 15:02 & Questions: Date: 03/04/24 03/04/24 15:02 Time: 15:04 03/04/24 15:02 Patient unable to answer at this time (ie. confused, unrespo /Reproduction History /Reproductive History - receiving tank operator: /Reproductive Hx- receiving tank operator Hx Now No 03/04/24 15:02 Gestational Age (in weeks): EDC: Hx Hx Para Hx Section SAB No 03/04/24 15:02 Active Medications Active Medications: Current Medications Generic Name Dose Route Start Last Admin Trade Name Freq PRN Reason Stop Dose Admin Lactated Ringer's 1,000 mls @ 15 mls/hr 03/05/24 09:15 03/05/24 09:20 IV 15 mls/hr .Q48H SETH Administration PFSH Medical History Cancer History of steroid therapy High cholesterol Chronic lymphatic leukemia Loss of hearing Wears glasses Post-menopausal Back pain Former smoker History of echocardiogram History of stress test Cardiology follow-up encounter Chest pain Cystocele, midline Bullous lesion Kidney mass Hearing loss of both ears Hyperlipidemia Vitamin D deficiency Atherosclerosis of coronary artery of [place] heart without angina pectoris Panic disorder without agoraphobia Raynaud's syndrome without gangrene Peripheral vascular disease Alopecia areata Neutrophilic dermatosis Osteoporosis Lung nodule Home Medications ?Medication ?Instructions ?Recorded ?Last Taken ?Type estradiol 0.5 mg tablet 0.5 mg PO DAILY 01/21/19 03/04/24 History acetaminophen 650 mg 650 mg PO Q8H PRN Pain 03/14/22 03/05/24 History tablet,extended release cholecalciferol (vitamin D3) 50 50 mcg PO DAILY 04/30/22 Unknown History mcg (2,000 unit) capsule (Vitamin D3) rosuvastatin 5 mg tablet 5 mg PO DAILY 07/24/23 Unknown History diphenhydramine 25 1 tab PO QHS PRN pain 02/07/24 Unknown History mg-acetaminophen 500 mg tablet (Tylenol PM Extra Strength) prednisone 10 mg tablet 10 mg PO DAILY 03/05/24 03/04/24 History Allergy/AdvReac Type Severity Reaction Status Date / Time pneumococcal vaccine (From Allergy Severe fever, Verified 03/05/24 09:09 Prevnar 13 (PF)) flu-like symptoms, severe redness and swelling in arm egg (eggs) Allergy Intermediate Rash Verified 03/05/24 09:38 Family History Brother , Age 50 Myocardial infarction Brother , Age 72 Heart disease CAD (coronary artery disease) Father , Age 78 Heart disease, Onset Age: 40 Cancer stomach CAD (coronary artery disease) CABG Grandfather , Age 39 Myocardial infarction Mother , Age 89 Dementia Atrial fibrillation Diabetes Sister Atrial fibrillation Brother CAD (coronary artery disease) stents Sister Atrial fibrillation Surgical History History of cataract extraction with lens replacement Status post laparoscopic cholecystectomy History of colonoscopy History of dilation and curettage History of hysterectomy History of appendectomy Social History Smoking Status: Former smoker how long ago did patient quit smokin years ago alcohol intake: former details: currently in AA- Quit 9 years ago substance use type: does not use caffeine: Yes Type: coffee Number of servings: 3 Review of Systems (Anesthesia) ROS Narrative System reviewed and no additional complaints, except as documented.
--- NOTE | 2024-03-05 10:00 | IMM_PTH ---
PATIENT: DIEGO ALLEN LOC: EN U#:[id number] AGE/SX: 78/F ROOM: RE03/05/[address]: Dr. Alvarez Suarez MD : 1945 BED: DIS: 03/05/2024 SPEC #: [id number] RECD: 03/06/24 08:09 STATUS: PERICO REQ #: [id number] SHEYLA: 03/05/24 10:[address]: Alvarez Suarez DEPT: IMMUNOHISTOCHEMISTRY RECD BY: Nicanor Quesada ENTERED: 03/06/24 08:10 SP TYPE: IMMUNO OTHR DR: Dr. Jane Sifuentes DO Tissues: A - Gastric mucous membrane Procedures: H Pylori (initial) PHYSICIAN & INSTITUTION [place] [id number] SPECIMEN INFORMATION: Tissue Source: A- Antrum biopsy Clinical Info: Epigastric pain Specimen Number: [id number] CPT code: 05653 METHODOLOGY: Deparaffinized sections of prefer/formalin-fixed tissue or PAP/DQ stained slides are incubated with monoclonal/polyclonal antibodies/oligonucleotide probes. Localization is made via biotin free immunoperoxidase method. Appropriate controls are performed and reacted as expected. Results on target cell population are indicated in the following table: RESULTS: ANTIBODY / CLONE RESULT Block A H Pylori (polyclonal) negative These tests were developed and their performance characteristics determined by [facility]. They may not have been cleared or approved by the U.S. Food and Drug Administration. The FDA has determined that such clearance or approval is not necessary. The above immunohistochemical/dualISH markers are ordered and reviewed by the Pathologist. INTERPRETATION: A. Antrum, biopsy: Negative for Helicobacter pylori organisms. 03/06/2024
--- NOTE | 2024-03-05 10:00 | EGD_PTH ---
PATIENT: DIEGO ALLEN LOC: EN U#:[id number] AGE/SX: 78/F ROOM: RE03/05/[address]: Dr. Alvarez Suarez MD : 1945 BED: DIS: 03/05/2024 SPEC #: [id number] RECD: 03/05/24 11:49 STATUS: PERICO LEE #: [id number] SHEYLA: 03/05/24 10:[address]: Alvarez Suarez DEPT: SURGICAL PATHOLOGY RECD BY: Celso Soto ENTERED: 03/05/24 13:56 SP TYPE: EGD BIOPSY OTHR DR: Dr. Jane Sifuentes DO Tissues: A - Gastric mucous membrane B - Gastric mucous membrane C - Esophagus, NOS D - Esophageal mucous membrane E - COLON BIOPSY Procedures: Special Stain Group I Surgery Specimen Level IV GMS Stain (control) Alcian Blue/PAS (control) HEADER OPERATION: EGD PRE-OP DIAGNOSIS: Epigastric pain TISSUE SUBMITTED: A- Antrum biopsy, B- Gastric body mucosa, C- Z-line biopsy, D- Esophageal plaque at 35cm, E- Antral mucosa MICROSCOPIC DIAGNOSIS A. Gastric antrum, biopsy: Chronic gastritis. See comment. B. Gastric body, biopsy: Strips of benign superficial gastric mucosa. C. Z-line, biopsy: Gastroesophageal junction mucosa with mild chronic inflammation. No evidence of goblet cell metaplasia. See comment. D. Esophageal plaque, biopsy: Fragments of benign squamous mucosa. No evidence of inflammation. See comment. E. Gastric antrum, biopsy: Mild chronic inflammation. AM/ 03/06/2024 COMMENT A. The results of immunohistochemistry for Helicobacter pylori will be reported separately ([id number]). C. Alcian blue/PAS stain with matched control is used in the evaluation of the specimen. D. GMS stain with matched control was used in the evaluation of this case. MICROSCOPIC DESCRIPTION Slides are reviewed. GROSS DESCRIPTION A. Received in fixative is one container labeled with the patient's name and designated Antrum biopsy. The specimen consists of one irregular fragment of light dash soft tissue that measures 0.4 x 0.3 x 0.1 cm. The specimen is totally submitted in one cassette. B. Received in fixative is one container labeled with the patient's name and designated Gastric body mucosa. The specimen consists of two irregular fragments of light dash soft tissue that in aggregate measure 0.4 x 0.1 x 0.1 cm. The specimen is totally submitted in one cassette. C. Received in fixative is one container labeled with the patient's name and designated Z-line biopsy. The specimen consists of multiple irregular fragments of light dash soft tissue that in aggregate measure 0.3 x 0.2 x 0.1 cm. The specimen is totally submitted in one cassette. D. Received in fixative is one container labeled with the patient's name and designated Esophageal plaque at 35cm. The specimen consists of one irregular fragment of light dash soft tissue that measures 0.5 x 0.3 x 0.1 cm. The specimen is totally submitted in one cassette. E. Received in fixative is one container labeled with the patient's name and designated Antral mucosa. The specimen consists of one irregular fragment of light dash soft tissue that measures 0.3 x 0.3 x 0.1 cm. The specimen is totally submitted in one cassette. SJ.mr 03/05/2024 TC:3 CPT:99301d0,14013,26067
--- NOTE | 2024-03-05 11:10 | OP.CCLET_ITS ---
03/05/2024 Janefelicia Sifuentes Re : Upper GI endoscopy procedure for Loraine Sifuentes This procedure was performed on February. My impressions and recommendations are as follows: Impressions : - No gross lesions in the duodenal bulb, in the first portion of the duodenum and in the second portion of the duodenum. No specimens collected. - Gastritis. Biopsied. - Z-line irregular, 44 cm from the incisors. Biopsied. - Multiple plaques in the middle third of the esophagus. Biopsied. - Tortuous esophagus. Recommendations : - Discharge patient to home (via wheelchair). - Resume previous diet today. - No aspirin, ibuprofen, naproxen, or other non-steroidal anti-inflammatory drugs for 2 days after biopsy. - Await pathology results. - Telephone my office for pathology results in 1 week. My findings are described in the full procedure note, which is enclosed. If I can be of further assistance, please feel free to contact me at Doctor phone number(s): , Work: . Sincerely, Alvarez Suarez MD 03/05/2024 11:09:50 AM This report has been signed electronically.
--- NOTE | 2024-03-05 11:10 | OP.EGD_ITS ---
Patient Name: Loraine Rivers Procedure Date: 03/05/2024 10:24 AM Date of : 1945 Age: 78 Procedure: Upper GI endoscopy Indications: Epigastric abdominal pain, Dysphagia Providers: Alvarez Suarez MD Medicines: See the Anesthesia note for documentation of the administered medications Patient Profile: Refer to note in patient chart for documentation of history and physical. Patient has symptoms of chronic epigastric abdominal pain and chronic dysphagia. Refer to note in patient chart for documentation of history and physical. Complications: No immediate complications. Estimated blood loss: Minimal. Procedure: Pre-Anesthesia Assessment: - The heart rate, respiratory rate, oxygen saturations, blood pressure, adequacy of pulmonary ventilation, and response to care were monitored throughout the procedure. After obtaining informed consent, the endoscope was passed under direct vision. Throughout the procedure, the patient's blood pressure, pulse, and oxygen saturations were monitored continuously. The gastroscope was introduced through the mouth, and advanced to the second part of duodenum. The upper GI endoscopy was accomplished without difficulty. The patient tolerated the procedure well. Scope In: 10:41:09 AM Scope Out: 10:59:19 AM Total Procedure Duration Time 0 hours 18 minutes 10 seconds Findings: No gross lesions were noted in the duodenal bulb, in the first portion of the duodenum and in the second portion of the duodenum. No biopsies or other specimens were collected for this exam. Scattered moderate inflammation characterized by adherent blood, erosions, erythema and friability was found in the gastric body and in the gastric antrum. Biopsies were taken with a cold forceps for histology. Estimated blood loss was minimal. Biopsies were taken with a cold forceps for Helicobacter pylori testing. Estimated blood loss was minimal. The Z-line was irregular and was found 44 cm from the incisors. Biopsies were taken with a cold forceps for histology. Estimated blood loss was minimal. Multiple 5 mm plaques were found in the middle third of the esophagus, 35 cm from the incisors. Biopsies were taken with a cold forceps for histology. Estimated blood loss was minimal. The lower third of the esophagus was mildly tortuous. Impression: - No gross lesions in the duodenal bulb, in the first portion of the duodenum and in the second portion of the duodenum. No specimens collected. - Gastritis. Biopsied. - Z-line irregular, 44 cm from the incisors. Biopsied. - Multiple plaques in the middle third of the esophagus. Biopsied. - Tortuous esophagus. Recommendation: - Discharge patient to home (via wheelchair). - Resume previous diet today. - No aspirin, ibuprofen, naproxen, or other non-steroidal anti-inflammatory drugs for 2 days after biopsy. - Await pathology results. - Telephone my office for pathology results in 1 week. Procedure Code(s): --- Professional --- 00599, Esophagogastroduodenoscopy, flexible, transoral; with biopsy, single or multiple Diagnosis Code(s): --- Professional --- K29.70, Gastritis, unspecified, without bleeding K22.89, Other specified disease of esophagus Q39.9, Congenital malformation of esophagus, unspecified R10.13, Epigastric pain R13.10, Dysphagia, unspecified CPT copyright 2021 [employer]. All rights reserved. The codes documented in this report are preliminary and upon tower air traffic control specialist review may be revised to meet current compliance requirements. Alvarez Suarez MD 03/05/2024 11:09:50 AM This report has been signed electronically. Number of Addenda: 0 Note Initiated On: 03/05/2024 10:24 AM
--- NOTE | 2024-03-05 11:10 | PCM.POST.ANE ---
Anesthesia: Postop Eval I Current Vital Signs Temperature: 97 F Pulse Rate: 57 Blood Pressure: 112/49 Respiratory Rate: 16 Pulse Ox: 100 Oxygen Delivery Method: Room Air Assessment Airway patent: Yes Spontaneous unlabored respirations: Yes Mental status: Asleep nausea: No Vomiting: No Anesthesia Complication: No Fluid Hydration Crystalloid volume administer (ml): 800 Total IV fluid infused: 800 Progress Note Anesthesia document: Postop Eval 1 completed: Yes
--- NOTE | 2024-03-05 12:20 | PCM.POSTANE2 ---
Anesthesia Postop Eval I Sum Postop Eval Completion status Anesthesia document: Postop Eval 1 completed: Yes Anesthesia Postop Eval I Summary Anesthesia Postop Eval I Summary: Anesthesia Postop Eval I: Assessment Summary Airway patent Yes 03/05/24 11:10 [email or web address] Spontaneous unlabored Yes 03/05/24 11:10 [email or web address] respirations Mental status Asleep 03/05/24 11:10 [email or web address] nausea No 03/05/24 11:10 [email or web address] Vomiting No 03/05/24 11:10 [email or web address] Anesthesia Postop Eval I: Fluid Summary Crystalloid volume administer 800 03/05/24 11:10 [email or web address] (ml) Colloids volume administered ( ml) Blood Product volume administered (ml) Total IV fluid infused 800 03/05/24 11:10 [email or web address] Anesthesia Postop Eval I: Summary Notes Anesthesia Complication No 03/05/24 11:10 [email or web address] Anesthesia Complication Comment: Post-operative progress note Anesthesia: Postop Eval II Evaluation Mental status: Awake Pain Level: 0 nausea: No Vomiting: No
== END 2024-03-05 11:53 | disposition home or self-care (01) ==
LOC: EN 08:37 → AC 08:41
PROVIDERS: PCP Internal Medicine; Referring Provider Internal Medicine; Visit Provider Surgery
PROC: 0DJ08ZZ Inspection of Upper Intestinal Tract, Via Natural or Artificial Opening Endoscopic (ICD-10-PCS; CPT 43235; principal; 2024-03-05 09:55)
DX: R10.13 Epigastric pain (principal); K29.70 Gastritis, unspecified, without bleeding; Z87.891 Personal history of nicotine dependence; E78.5 Hyperlipidemia, unspecified; I25.10 Atherosclerotic heart disease of native coronary artery without angina pectoris; Z79.899 Other long term (current) drug therapy; Z90.49 Acquired absence of other specified parts of digestive tract; Z90.710 Acquired absence of both cervix and uterus; K22.89 Other specified disease of esophagus
CPT/HCPCS: 43239; 88305; 88312; 88342; J7120; J2405

== ENCOUNTER → 2024-03-13 | Outpatient (CLI) | payer MEDICARE, SELFPAY ==
--- NOTE | 2024-03-13 12:57 | BI_ITS ---
MAMMOGRAPHY - BILATERAL SCREENING REASON FOR EXAM: Female, 78 years old. Routine annual screening examination. PERTINENT HISTORY: Non-contributory. History of remote left excisional breast biopsy. TECHNIQUE: Digital bilateral breast melody (3D mammographic acquisition) in the CC and MLO projections. 2-D mediolateral oblique (MLO) and craniocaudad (CC) views of both breasts were obtained. CAD: Full Field Digital Mammography with Computer Added Detection was performed. COMPARISON: Comparison is made with prior study October 22, 2022 and October 20, 2021. FINDINGS: Breast Composition: There are scattered areas of fibroglandular density. There are no dominant masses or suspicious calcifications. Stable small benign-appearing bilateral axillary lymph nodes. No other significant abnormalities are identified. There has been no significant change since the prior study. BI/SCRN MAMM (CAD)W/MELODY BILAT IMPRESSION: Stable bilateral screening mammogram. Yearly follow-up mammogram recommended. (A) ASSESSMENT CATEGORY: BIRADS Category 2: Benign. A letter regarding these results will be sent to the patient by the facility within 30 days. Approximately 10% of breast cancers are not detected by mammography. A normal mammogram should not delay biopsy of a clinically suspicious abnormality. [id number] Electronically Signed: Miguel Haider MD at 9:05 EDT ,
== END | disposition home or self-care (01) ==
LOC: OPBI 12:55
PROVIDERS: PCP Internal Medicine; Referring Provider Internal Medicine; Visit Provider Internal Medicine
DX: Z12.31 Encounter for screening mammogram for malignant neoplasm of breast (principal)
CPT/HCPCS: 77063; 77067

== ENCOUNTER → 2024-03-23 | Outpatient (CLI) | payer MEDICARE, SELFPAY ==
--- NOTE | 2024-03-23 10:05 | CDU_ITS ---
Reason For Study: Carotid Stenosis Rt. Velocities/BP Lt. Velocities/BP Prox CCA 71/14 cm/sec. Prox CCA 127/21 cm/sec. Mid CCA 85/21 cm/sec. Mid CCA 89/20 cm/sec. Dist CCA 62/18 cm/sec. Dist CCA 81/22 cm/sec. Prox ICA 57/19 cm/sec. Prox ICA 75/23 cm/sec. Mid ICA 93/28 cm/sec. Mid ICA 108/30 cm/sec. Dist ICA 95/31 cm/sec. Dist ICA 104/34 cm/sec. Rt. ICA/CCA = 1.1. Lt. ICA/CCA = 1.2. Prox ECA 100/9 cm/sec. Prox ECA 160/16 cm/sec. Rt. Vert. 77/23 cm/sec. Lt. Vert. 68/15 cm/sec. Right Extracranial There is heterogeneous, irregular atherosclerotic plaque noted in the right common carotid artery. There is intimal thickening but no significant atherosclerotic plaque noted in the right internal carotid artery. There is intimal thickening but no significant atherosclerotic plaque noted in the right external carotid artery. Antegrade flow is noted in the right vertebral artery. Left Extracranial There is heterogeneous, irregular atherosclerotic plaque noted in the left common carotid artery. There is heterogeneous, irregular atherosclerotic plaque noted in the left internal carotid artery. There is intimal thickening but no significant atherosclerotic plaque noted in the left external carotid artery. Antegrade flow is noted in the left vertebral artery. Procedure Carotid Duplex [id number]. This is a Carotid Duplex examination using B-mode, color flow and specral Doppler. Exam performed in department. VL/Carotid Duplex Ultrasound Interpretation Summary No significant atherosclerotic plaque or stenosis noted in the right internal c arotid artery. Mild (<50%) stenosis left extracranial internal carotid. Flow within the vertebral a rteries is antegrade bilaterally. Ordering Physician: Jane Sifuentes Referring Physician: Jane Sifuentes Performed By: Meenu Bar, RYAN, RVT
== END | disposition home or self-care (01) ==
PROVIDERS: PCP Internal Medicine; Referring Provider Internal Medicine; Visit Provider Internal Medicine
DX: I65.23 Occlusion and stenosis of bilateral carotid arteries (principal)
CPT/HCPCS: 93880

== ENCOUNTER → 2024-04-01 | Outpatient (CLI) | payer MEDICARE, SELFPAY ==
--- NOTE | 2024-04-01 16:00 | MRI_ITS ---
INDICATION: dizziness EXAMINATION: MRI - MR Brain WO/W Contrast TECHNIQUE: Multiplanar and multisequence MR images of the brain were obtained without and with gadolinium. IV Contrast Dosage and Agent: 10 mL clariscan. COMPARISON: CT head February 26, 2023, April 15, 2007 and May 12, 2004 FINDINGS: BRAIN PARENCHYMA: Slight low lying cerebellar tonsils without Chiari I malformation. Otherwise normal midline developmental anatomy. Unremarkable sella. Cerebellar pontine angles are clear. Moderate periventricular and subcortical T2 hyperintense chronic small vessel white matter ischemic change. No diffusion restriction. No evidence of prior hemorrhage. 1.4 x 0.5 cm T2 and T1 isointense enhancing dural base mass consistent with meningioma without mass effect, best seen postcontrast axial series 10 image 9. No abnormal brain parenchymal or meningeal enhancement. INTERNAL AUDITORY CANALS: The internal auditory canals are well visualized and patent. No mass identified. CSF SPACES: Appropriate for age. No hydrocephalus. Basal cisterns are patent. VASCULAR SYSTEM: Normal flow voids in the major intracranial circulation. CALVARIUM, SKULL BASE, PARANASAL SINUSES AND MASTOID AIR CELLS: Scattered mild paranasal sinus mucoperiosteal thickening with anterior left maxillary sinus mucus retention cyst. Mastoid air cells are clear.. ORBITS: Both globes, extraocular muscles, optic nerves and retrobulbar fat appear unremarkable. MRI/Brain W/WO Contrast IMPRESSION: Small right posterior sphenoid dural based mass most commonly representing meningioma, located just prior to sylvian fissure without significant mass effect. No evidence of additional intracranial mass to suggest dural based metastasis. This is better seen than on most recent CT and not appreciable on more remote CTs, possibly due to differences in technique, however would consider 3 month follow-up MRI to ensure stability. No evidence of acute stroke. Moderate senescent changes compatible with age. Electronically Signed: Jonnathan Nagy MD at 8:24 EDT ,
[2024-04-01 17:12] LABS: CREATININE FINGERSTICK < 1.0 mg/dL (0.55-1.02)
== END | disposition home or self-care (01) ==
PROVIDERS: PCP Internal Medicine; Referring Provider Internal Medicine; Visit Provider Internal Medicine
DX: I65.23 Occlusion and stenosis of bilateral carotid arteries (principal); R42 Dizziness and giddiness
CPT/HCPCS: 70553; A9575

== ENCOUNTER 2024-04-08 11:24 | Outpatient (RCR) | payer MEDICARE, SELFPAY ==
--- NOTE | 2024-04-09 08:43 | HP.PTEVAL_ITS ---
Patient's Visit Information Visit Information Visit Information: DIEGO ALLEN is a 78 year old F referred to Physical Therapy by ARY Goncalves with a diagnosis of R radial neck fracture. Date of Evaluation: 04/08/24 Physical Therapist: Steve García DPT Visit Plan Frequency: 1x/Week Duration: 1 Week Plan: Pt. is overall doing very well. I gave her exercises for forearm strengthening. She desires to complete these on her own and I agree with her ability to safely do so. Pt. will be DC to I HEP at this point in time. Subjective Subjective: Pt. is here today for her initial evaluation with diagnosis of disp fracture of neck of R radius. Pt. reports ~6 weeks ago she fell in her home onto her elbow. Pt. reports she has been doing very well over the past few weeks. She reports she is back to all activities at home and not really having any pain. pt. is sleeping well. She is back to driving and doing all of her activities around the house. Pt. pleased with her healing thus far. Pt. reports no N/T and not much issues any more. Objective Objective: POSTURE: Pt. has normal posture in stance. Normal elbow positioning. R UE in a relaxed positioning, no gaurding noted. PALPATIO: Pt. has some mild tenderness with palpation along radial head, but no pain elsewhere. NEURO: normal DTR throughout BUEs. Normal sensation throughout BUEs. ROM: PT. has full R elbow flexion/extension and full sup/pro. No pain with slight over pressure throughout all above motions. Pt. has full R shoulder ROM as well. MMT: RUE: wrist: flexion 17.1#, ext 12.3; elbow: flexion 24.8#, ext 15.3#. Land Leasing Information Clerk 35.8# LUE: wrist: flexion 19.4#, ext 14.5#; elbow: flexion 25.1#, ext 16.4#, academic advising director 41.5#. Balance/Special Test Scores Quick DASH Score: 4.5450 Goals Goal 1:: STG: Pt. to be I with HEP for UE strengthening. Goal Time Frame: 1 Week Rehabilitation Potential Physical Therapy Diagnosis: Pt. is overall doing very well. She has minimal strength loss and full ROM of elbow and wrist without increase in symptoms. Rehabilitation Potential: Excellent Anticipated Interventions Patient/Client Instruction: Educate patient on: Condition, Plan of Care, Risk Factors and Benefits of Fitness Program For the Purpose of:: To improve self management, To prevent re-injury, To improve ability to perform tasks related to life management and To improve tolerance to ADL's Therapeutic Exercise to Include: Strength training For the Purpose of:: To increase ROM, To improve nutrient delivery to tissue, To improve muscle performance and motor function and To improve ability to perform ADL's Text: Thank you for the opportunity to evaluate your patient. For Medicare and Medicare HMO plans, please review the plan of care and approve it. It will need to be FAXED BACK to us at [phone] for Medicare purposes. For Medicare only, by signing this I certify the plan of care. Please let me know if there are questions or concerns regarding this plan of care. Physician Signature: Date:
== END 2024-04-08 19:00 | disposition home or self-care (01) ==
LOC: PT 11:24
PROVIDERS: PCP Internal Medicine; Referring Provider Physician Assistant Surgical; Visit Provider Physician Assistant Surgical
DX: S52.131D Displaced fracture of neck of right radius, subsequent encounter for closed fracture with routine healing (principal)
CPT/HCPCS: 97110; 97161

== ENCOUNTER → 2024-06-11 | Outpatient (CLI) | payer MEDICARE, SELFPAY ==
[2024-06-11 12:31] LABS: Absolute Lymphocyte Count 8.88 X10^3/uL (0.83-4.51); Absolute Neutrophil Count 3.1 X10^3/uL (2.0-7.7); Basophil# 0.09 X10^3/uL; Basophil% 0.7 % (0-1); Eosinophil# 0.22 X10^3/uL; Eosinophils% 1.6 % (0-5); Hematocrit 40.7 % (37-47); Hemoglobin 13.6 g/dL (12.0-15.0); Lymphocyte # 8.88 X10^3/ul (0.83-4.51); Lymphocyte % 64.9 % (19-41); Mean Corp Hgb Conc 33.4 g/dL (32-36); Mean Corpuscular Hgb 31.2 pg (27.0-32.0); Mean Corpuscular Volume 93.3 fL (81-99); Mean Platelet Vol. 10.6 fl (6.2-12.0); Monocyte# 1.34 X10^3/uL; Monocyte% 9.8 % (0-10); NRBC Flagged by Analyzer 0 % (0-5); Neutrophil # 3.12 X10^3/uL (2.7-7.7); Neutrophil % 22.8 % (47-70); POSITIVE DIFFERENTIAL YES; POSITIVE MORPHOLOGY YES; Platelet Count 139 K/mm3 (150-450); RBC Distribution Width CV 13.7 % (11.6-14.6); RBC Distribution Width SD 46.6 fl (35.1-43.9); Red Blood Count 4.36 M/mm3 (4.2-5.4); White Blood Count 13.7 K/mm3 (4.4-11.0)
[2024-06-11 12:45] LABS: Differential Indicated SCAN CRITERIA MET
[2024-06-11 12:53] LABS: Vitamin B12 1479 pg/mL (211-911); Vitamin D,25 Hydroxy 27.4 ng/mL
[2024-06-11 13:16] LABS: ALB/GLOB Ratio 1.2 RATIO (0.9-2.4); AST(SGOT) 24 U/L (15-37); Alanine Aminotransfer ALT/SGPT 25 U/L (13-56); Albumin, Serum 3.7 g/dL (3.2-5.0); Alkaline Phosphatase 69 U/L (45-117); Anion Gap 6 (5-15); BUN 10 mg/dL (7-18); BUN/Creat Ratio 9.7 RATIO (10-20); Calcium,Total 8.8 mg/dL (8.5-10.1); Chloride 106 mmol/L (98-107); Creatinine, Serum 1.03 mg/dL (0.55-1.02); EST Glomerular Filtration Rate 55 mL/min (>60); Est Glom Filt Rate - Afr Amer 67 mL/min (>60); Globulin 3.2 g/dL (2.2-4.2); Glucose 123 mg/dL (74-106); Potassium 4.1 mmol/L (3.5-5.1); Protein, Total 6.9 g/dL (6.4-8.2); Sodium Level 135 mmol/L (136-145)
[2024-06-11 13:42] LABS: Atypical Lymphocyte 2+ %; Platelet Estimate SLT DEC (ADEQ); Red Cell Morphology NORM C+C NORMAL (NORM C&C)
[2024-06-12 13:44] LABS: Mucous, Urine 0 SEEN /hpf (<or=2+); Red Blood Cells-Urine 0 SEEN /hpf (0-5)
[2024-06-12 13:59] LABS: Color, Urine Straw (Yellow); Glucose, Dipstick Normal (Normal); Ketone-Dipstick Negative (Negative); Leukocyte Esterase-Dipstick Negative /ul (Negative); Nitrite-Dipstick Negative (Negative); Occult Blood-Urine Negative /ul (Negative); Protein-Dipstick Negative (Negative); Urine Bilirubin Dipstick Negative (Negative); Urine Clarity Sl. Cloudy (Clear); Urine Urobilinogen Normal (Normal)
[2024-06-12 14:08] LABS: White Blood Cells 0-5 SEEN /hpf (0-5)
[2024-06-12 14:09] LABS: Bacteria 3+ /hpf (None Seen); Squamous Epithelial Cells - UA 5-10 SEEN /hpf (5-10)
== END | disposition home or self-care (01) ==
PROVIDERS: PCP Internal Medicine; Referring Provider Internal Medicine; Visit Provider Internal Medicine
DX: R53.83 Other fatigue (principal)
CPT/HCPCS: 36415; 80053; 81001; 81002; 82306; 82607; 84443; 85025

== ENCOUNTER → 2024-06-12 | Outpatient (CLI) | payer MEDICARE, SELFPAY | END | disposition home or self-care (01) | LOC: LABSPEC 13:40 | PROVIDERS: PCP Internal Medicine; Referring Provider Internal Medicine; Visit Provider Internal Medicine | DX: R53.83 Other fatigue (principal) ==

== ENCOUNTER → 2024-07-03 | Outpatient (CLI) | payer MEDICARE, SELFPAY ==
--- NOTE | 2024-07-03 16:38 | STRESSREP_ITS ---
Stress Test Report Date: 07/03/2024 Procedure: Exercise tolerance test/imaging study Indications: Chest pain Consent: Per the patient Procedure: The patient exercised on a Adam protocol for 6 minutes achieving a peak heart rate of 115 bpm (80% predicted maximal heart rate) with a peak blood pressure 172/60 mmHg and a peak MET capacity of 7 METs. The baseline ECG demonstrated normal sinus rhythm. The peak exercise ECG demonstrated no significant ischemic changes. EKG during recovery revealed about half a millimeter horizontal to upsloping ST depression in the inferior leads. [There were no cardiac dysrhythmias pretest, during exercise, or recovery]. The functional capacity was considered excellent for age. There was [no complaint of chest discomfort during exercise or recovery]. The examination was discontinued secondary to dyspnea. Impression: 1. Technically adequate (percent predicted maximal heart rate greater than 85%) exercise tolerance test 2. Stress test is negative for exercise-induced EKG changes of ischemia 3. The test test is negative for exercise-induced chest pain 4. Functional capacity is excellent for age 5. Nuclear images pending Myocardial perfusion imaging study: Technique: The patient was injected with 11 mCi of technetium 99m Cardiolite and subsequently rest SPECT Cardiolite nuclear imaging was obtained in the horizontal long, vertical long, and short axis views. The patient exercised on a Adam protocol. Please see above for details. The patient was injected with 33.3 mCi of technetium 99m Cardiolite and subsequently stress SPECT Cardiolite nuclear imaging was obtained in the horizontal long, vertical long, and short axis views. A gated Cardiolite study at peak stress was obtained. Interpretation: Rest and stress SPECT Cardiolite nuclear imaging status post realignment, normalization, and attenuation correction, demonstrates no evidence of significant ischemia or infarction. The gated Cardiolite study demonstrates no significant regional wall motion abnormalities. The reported LVEF is greater than 70%. Impression: 1. There is no evidence of significant ischemia or infarction. 2. The gated Cardiolite study reports an LVEF of greater than 70%. This note was generated with [employer] software. It may contain incorrect words, spelling, and punctuation that were not noted in checking the note before signing.
== END | disposition home or self-care (01) ==
PROVIDERS: PCP Internal Medicine; Referring Provider Internal Medicine; Visit Provider Internal Medicine
DX: R07.9 Chest pain, unspecified (principal)
CPT/HCPCS: 78452; 93017; A9500; A4216

== ENCOUNTER → 2024-08-10 | Outpatient (CLI) | payer MEDICARE, SELFPAY ==
[2024-08-10 15:21] LABS: Absolute Lymphocyte Count 10.38 X10^3/uL (0.83-4.51); Absolute Neutrophil Count 6.2 X10^3/uL (2.0-7.7); Basophil# 0.07 X10^3/uL; Basophil% 0.4 % (0-1); Eosinophil# 0.09 X10^3/uL; Eosinophils% 0.5 % (0-5); Hematocrit 23.8 % (37-47); Hemoglobin 7.6 g/dL (12.0-15.0); Lymphocyte # 10.38 X10^3/ul (0.83-4.51); Lymphocyte % 56.2 % (19-41); Mean Corp Hgb Conc 31.9 g/dL (32-36); Mean Corpuscular Hgb 31.3 pg (27.0-32.0); Mean Corpuscular Volume 97.9 fL (81-99); Mean Platelet Vol. 11.1 fl (6.2-12.0); Monocyte# 1.73 X10^3/uL; Monocyte% 9.4 % (0-10); NRBC Flagged by Analyzer 0 % (0-5); Neutrophil # 6.15 X10^3/uL (2.7-7.7); Neutrophil % 33.2 % (47-70); POSITIVE COUNT YES; POSITIVE DIFFERENTIAL YES; POSITIVE MORPHOLOGY YES; Platelet Count 177 K/mm3 (150-450); RBC Distribution Width CV 15.3 % (11.6-14.6); RBC Distribution Width SD 55.3 fl (35.1-43.9); Red Blood Count 2.43 M/mm3 (4.2-5.4); White Blood Count 18.5 K/mm3 (4.4-11.0)
[2024-08-10 15:54] LABS: AST(SGOT) 24 U/L (15-37); Alanine Aminotransfer ALT/SGPT 26 U/L (13-56); Albumin, Serum 3.4 g/dL (3.2-5.0); Alkaline Phosphatase 61 U/L (45-117); Anion Gap 9 (5-15); BUN 17 mg/dL (7-18); Calcium,Total 9.6 mg/dL (8.5-10.1); Chloride 101 mmol/L (98-107); EST Glomerular Filtration Rate 65 mL/min (>60); Est Glom Filt Rate - Afr Amer 78 mL/min (>60); Globulin 3.4 g/dL (2.2-4.2); Glucose 92 mg/dL (74-106); Potassium 3.8 mmol/L (3.5-5.1); Protein, Total 6.8 g/dL (6.4-8.2); Sodium Level 135 mmol/L (136-145); Troponin-I HS 3 pg/mL (3.0-54.0)
[2024-08-10 16:39] LABS: Differential Indicated SCAN CRITERIA MET
[2024-08-10 16:40] LABS: Acanthocytes 1+; Ovalocyte 1+; Platelet Estimate A (ADEQ); Polychromasia 1+
[2024-08-12 09:08] LABS: Pathologist Review Reviewed
== END | disposition home or self-care (01) ==
LOC: LABSPEC 15:03
PROVIDERS: PCP Internal Medicine; Referring Provider Internal Medicine; Visit Provider Internal Medicine
DX: R42 Dizziness and giddiness (principal); R00.0 Tachycardia, unspecified; R06.02 Shortness of breath
CPT/HCPCS: 80053; 84443; 84484; 85025; 85379

== ENCOUNTER → 2024-08-11 | Outpatient (CLI) | payer MEDICARE, SELFPAY ==
[2024-08-11 13:49] LABS: Platelet Count 196 K/mm3 (150-450); RET-HE 25.5 pg (30-35); Reticulocyte Count 6.61 % (0.5-1.5)
[2024-08-11 14:14] LABS: Vitamin B12 761 pg/mL (211-911)
[2024-08-11 15:00] LABS: Ferritin 11 ng/mL (8-252); Iron 34 ug/dL (50-170); Iron Binding Capacity,Total 306 ug/dL (250-450); LDH 140 U/L (84-246); PERCENT IRON SATURATION 11.1 % (15.0-55.0)
[2024-08-13 06:07] LABS: Haptoglobin 186 mg/dL (42-346)
== END | disposition home or self-care (01) ==
PROVIDERS: PCP Internal Medicine; Referring Provider Internal Medicine; Visit Provider Internal Medicine
DX: D64.9 Anemia, unspecified (principal)
CPT/HCPCS: 36415; 82607; 82728; 82746; 83010; 83540; 83550; 83615; 85045

== ENCOUNTER 2024-08-14 07:54 | Outpatient (CLI) | payer MEDICARE, SELFPAY ==
[2024-08-14 08:04] VITALS: BP 113/51; PULSE 80; RESP 16; TEMP 36.1; O2SAT 96; BMI 19.7
[2024-08-14 08:46] VITALS: BP 98/46; PULSE 70; RESP 16; TEMP 36.3; O2SAT 100
[2024-08-14 10:12] VITALS: BP 97/51; PULSE 60; RESP 16; TEMP 37.2; O2SAT 99
[2024-08-14 10:22] VITALS: BP 126/62; PULSE 74; RESP 16; TEMP 36; O2SAT 100
[2024-08-14] MEDS: Furosemide 20 MG/2 ML VIAL 10 MG IV (10:36)
[2024-08-14 11:13] VITALS: BP 119/57; PULSE 72; RESP 16; TEMP 36.3; O2SAT 100
[2024-08-14 12:50] VITALS: BP 126/63; PULSE 84; RESP 16; TEMP 36.4; O2SAT 100
== END 2024-08-14 23:59 | disposition home or self-care (01) ==
LOC: MEDOUTP 07:55
PROVIDERS: PCP Internal Medicine; Referring Provider Internal Medicine; Visit Provider Internal Medicine
DX: D64.9 Anemia, unspecified (principal)
CPT/HCPCS: 96374; 36430; 86644; 86850; 86900; 86901; P9016; A4216; J1940

== ENCOUNTER → 2024-08-19 | Outpatient (CLI) | payer MEDICARE, SELFPAY ==
[2024-08-19 14:22] LABS: Absolute Lymphocyte Count 9.75 X10^3/uL (0.83-4.51); Absolute Neutrophil Count 5.5 X10^3/uL (2.0-7.7); Basophil# 0.11 X10^3/uL; Basophil% 0.6 % (0-1); Eosinophil# 0.17 X10^3/uL; Hemoglobin 10.7 g/dL (12.0-15.0); Lymphocyte # 9.75 X10^3/ul (0.83-4.51); Lymphocyte % 56.8 % (19-41); Mean Corp Hgb Conc 32.4 g/dL (32-36); Mean Corpuscular Hgb 29.6 pg (27.0-32.0); Mean Corpuscular Volume 91.4 fL (81-99); Monocyte# 1.59 X10^3/uL; Monocyte% 9.3 % (0-10); NRBC Flagged by Analyzer 0 % (0-5); Neutrophil # 5.49 X10^3/uL (2.7-7.7); POSITIVE DIFFERENTIAL YES; POSITIVE MORPHOLOGY YES; Platelet Count 146 K/mm3 (150-450); RBC Distribution Width CV 14.3 % (11.6-14.6); RBC Distribution Width SD 48.5 fl (35.1-43.9); Red Blood Count 3.61 M/mm3 (4.2-5.4); White Blood Count 17.2 K/mm3 (4.4-11.0)
[2024-08-19 15:08] LABS: Differential Indicated SCAN CRITERIA MET
[2024-08-19 15:09] LABS: Atypical Lymphocyte 2+ %; Reactive Lymphocyte 1+
[2024-08-21 09:25] LABS: Pathologist Review Reviewed
== END | disposition home or self-care (01) ==
LOC: LAB 13:54
PROVIDERS: PCP Internal Medicine; Referring Provider Internal Medicine; Visit Provider Internal Medicine
DX: D64.9 Anemia, unspecified (principal)
CPT/HCPCS: 36415; 85025

== ENCOUNTER → 2024-09-03 | Outpatient (CLI) | payer MEDICARE, SELFPAY ==
--- NOTE | 2024-09-03 13:18 | MRI_ITS ---
PROCEDURE: BRAIN W/WO CONTRAST REASON FOR EXAM: Brain mass TECHNIQUE: Multisequence multiplanar MR images of the brain were obtained before and after the administration of 11 mL of intravenous Clariscan contrast. COMPARISON: 04/01/2024 FINDINGS: Unchanged ovoid enhancing lesion near the right orbital apex abutting the cavernous sinus measuring roughly 10 x 12 x 10 mm most likely representing a meningioma. No significant surrounding edema. No new enhancing lesions. No diffusion restriction to suggest acute/subacute ischemia. No evidence of acute intracranial hemorrhage, midline shift or mass effect. Moderate scattered periventricular, subcortical and deep white matter hyperintense FLAIR signal most likely related to chronic small-vessel ischemic changes, similar to prior. No hydrocephalus. Cerebral volume is age- appropriate. Mild polypoid left maxillary mucosal thickening. Globes are intact. MRI/Brain W/WO Contrast IMPRESSION: 1. Unchanged enhancing lesion near the right orbital apex as above likely repre senting a meningioma. 2. Chronic small-vessel ischemic disease. Reading Location: [facility]
== END | disposition home or self-care (01) ==
LOC: MRI 13:11
PROVIDERS: PCP Internal Medicine; Referring Provider Internal Medicine; Visit Provider Internal Medicine
DX: G93.89 Other specified disorders of brain (principal)
CPT/HCPCS: 70553; A9575

== ENCOUNTER → 2024-10-12 | Outpatient (CLI) | payer MEDICARE, SELFPAY ==
--- NOTE | 2024-10-12 09:33 | US_ITS ---
PROCEDURE: ABD LIMITED W/ ELASTOGRAPHY REASON FOR EXAM: ABD LIMITED W/ ELASTOG COMPARISON: None. TECHNIQUE: Right upper quadrant abdominal ultrasound. Perez ElastQ Imaging shear wave elastography for non-invasive assessment of liver tissue stiffness. Perez EPIQ Elite. FINDINGS: LIVER: Size: Unremarkable Length: 16 cm cm Echotexture: Diffusely echogenic suggesting fatty infiltration Contour: Normal Lesions: None identified Elastography: EQI Med: 6.3 kPa EQI Med Davon: 1.5 m/s IQR/Med: 27 %* GALLBLADDER: Surgically absent. COMMON BILE DUCT: Normal it measures 5.5 mm.. PANCREAS: Visualized portions are sonographically unremarkable. 7.6 mm x 5.5 mm cyst in the upper pole of the right kidney. No right upper quadrant ascites. US/ABD Limited w/ Elastography IMPRESSION: MODERATE HEPATIC FIBROSIS Fatty infiltration of the liver. Status post cholecystectomy. Reference Values: SRU <1.37 m/s (5.7kPa): No to mild fibrosis 1.37 m/s - 2.2 m/s: Moderate to severe fibrosis >2.2 m/s (15kPa): Significant fibrosis / cirrhosis METAVIR Score F2 or higher: 1.34 m/s (5.7kPa) F3 or higher: 1.55 m/s (7.3kPa) F4: 1.80 m/s (10kPa) * If the IQR/Med is >30%, the variance in the measurements is a large and the a ccuracy of the measurement may be in question. Reading Location: [place] [id number]
== END | disposition home or self-care (01) ==
LOC: US 09:28
PROVIDERS: PCP Internal Medicine; Referring Provider Internal Medicine; Visit Provider Internal Medicine
DX: K76.0 Fatty (change of) liver, not elsewhere classified (principal)
CPT/HCPCS: 76705; 76981

== ENCOUNTER → 2024-10-13 | Outpatient (CLI) | payer MEDICARE, SELFPAY ==
--- NOTE | 2024-10-13 14:00 | BD_ITS ---
PROCEDURE: DEXA BONE DENSITY STUDY 10/13/2024 REASON FOR EXAM: F, age 78 y/o . Postmenopausal. TECHNIQUE: DXA scan of the lumbar spine and both hips, using make and model. REFERENCE LINKS: ISCD Adult Positions COMPARISON: Comparison is made with prior study dated July 19, 2022. FINDINGS: BMD and T-SCORES Lumbar spine: 0.841 g/cm2, T-Score -1.9 L1 through L4 Change from prior: Improvement by 3.3% Left femoral neck: 0.515 g/cm2, T-Score -3.0 Femoral neck comparison data not recommended for monitoring change. Left total hip: 0.615 g/cm2, T-Score -2.7 Change from prior: Improved by 5.3% Right femoral neck: 0.549 g/cm2, T-Score -2.7 Femoral neck comparison data not recommended for monitoring change. Right total hip: 0.654 g/cm2, T-Score -2.4 Change from prior: Improved by 4.3% Fracture Risk Calculation: FRAX (10-year Fracture Risk) Score: FRAX scores should never be reported in a patient with osteoporosis on DEXA or for any patient that is on bone medication. The patient doesmeet the pharmacological treatment recommendations for prevention of osteoporosis BD/Dexa Bone Density Study IMPRESSION: OSTEOPOROSIS. Recommend follow-up as clinically warranted. Reading Location: [place] [id number]
== END | disposition home or self-care (01) ==
LOC: OPBD 13:58
PROVIDERS: PCP Internal Medicine; Referring Provider Internal Medicine; Visit Provider Internal Medicine
DX: Z78.0 Asymptomatic menopausal state (principal)
CPT/HCPCS: 77080

== ENCOUNTER → 2025-02-02 | Outpatient (CLI) | payer MEDICARE, SELFPAY ==
--- NOTE | 2025-02-02 12:39 | CDU_ITS ---
Reason For Study Reason For Study: carotid stenosis Rt. Velocities/BP Lt. Velocities/BP Prox CCA 77.1/15.7 cm/sec. Prox CCA 116.7/27.2 cm/sec. Mid CCA 67.6/14.7 cm/sec. Mid CCA 106.3/20.4 cm/sec. Dist CCA 64.8/16.6 cm/sec. Dist CCA 69.5/13.0 cm/sec. Prox ICA 65.8/18.5 cm/sec. Prox ICA 54.7/14.1 cm/sec. Mid ICA 110.0/24.1 cm/sec. Mid ICA 96.5/26.5 cm/sec. Dist ICA 128.9/32.1 cm/sec. Dist ICA 97.7/32.7 cm/sec. Rt. ICA/CCA = 128.9/67.6=1.9. Lt. ICA/CCA = 97.7/106.3=0.9. Prox ECA 78.0/7.2 cm/sec. Prox ECA 129.5/12.6 cm/sec. Rt. Vert. 66.9/15.3 cm/sec. Lt. Vert. 50.4/12.0 cm/sec. Right Extracranial There is intimal thickening but no significant atherosclerotic plaque noted in the right common carotid artery. There is intimal thickening but no significant atherosclerotic plaque noted in the right internal carotid artery. The right distal internal carotid artery is very tortuous. There is no significant atherosclerotic plaque noted in the right external carotid artery. Antegrade flow is noted in the right vertebral artery. Left Extracranial There is intimal thickening but no significant atherosclerotic plaque noted in the left common carotid artery. There is heterogeneous, irregular atherosclerotic plaque noted in the left internal carotid artery. There is homogeneous, smooth atherosclerotic plaque noted in the left external carotid artery. Antegrade flow is noted in the left vertebral artery. Procedure Carotid Duplex [id number]. This is a Carotid Duplex examination using B-mode, color flow and specral Doppler. Exam performed in department. VL/Carotid Duplex Ultrasound Interpretation Summary Normal right extracranial internal carotid. Elevated velocity without plaque vi sualized. Mild (<50%) stenosis left extracranial internal carotid. Patent and antegrade vertebrals bilaterally. Ordering Physician: Jane Sifuentes Referring Physician: Jane Sifuentes Performed By: Loraine Noguera, RYAN, RVT
== END | disposition home or self-care (01) ==
LOC: CVS 12:35
PROVIDERS: PCP Internal Medicine; Referring Provider Internal Medicine; Visit Provider Internal Medicine
DX: I65.23 Occlusion and stenosis of bilateral carotid arteries (principal)
CPT/HCPCS: 93880

== ENCOUNTER → 2025-03-15 | Outpatient (CLI) | payer MEDICARE, SELFPAY ==
--- NOTE | 2025-03-15 12:00 | BI_ITS ---
EXAM: SCRN MAMM (CAD)W/MELODY BILAT DATE: 03/15/2025 CLINICAL HISTORY: F, Age 79 y/o , SCREENING No family history remote left excisional breast biopsy. TECHNIQUE: Procedure Code: [id number] Modality: MG Procedure: SCRN MAMM (CAD)W/MELODY BILAT COMPARISON: Prior exam(s) dated March 13, 2024.. FINDINGS: TISSUE DENSITY: There are scattered areas of fibroglandular density. Bilateral Breast Mammographic Findings: No significant masses, calcifications or other abnormalities are identified. Stable small benign-appearing bilateral axillary lymph nodes. No suspicious masses, areas of developing architectural distortion, or suspicious calcifications. There has been no significant interval change. BI/SCRN MAMM (CAD)W/MELODY BILAT IMPRESSION: Stable bilateral screening mammogram. OVERALL FINAL ASSESSMENT BI-RADS 2: BENIGN RECOMMENDATION: Routine annual follow-up in 1 Year Additional Recommendation none A letter with findings and recommendations will be mailed to the patient. Reading Location: [place] [id number]
== END | disposition home or self-care (01) ==
LOC: OPBI 11:52
PROVIDERS: PCP Internal Medicine; Referring Provider Internal Medicine; Visit Provider Internal Medicine
DX: Z12.31 Encounter for screening mammogram for malignant neoplasm of breast (principal)
CPT/HCPCS: 77063; 77067

== ENCOUNTER → 2025-04-28 | Outpatient (CLI) | payer MEDICARE, SELFPAY ==
[2025-04-28 12:37] LABS: Hematocrit 42.9 % (37-47); Hemoglobin 14.3 g/dL (12.0-15.0); Immature Granulocytes Count 0.050 X10^3/uL (0.0-0.0); Mean Corp Hgb Conc 33.3 g/dL (32-36); Mean Corpuscular Volume 92.9 fL (81-99); Mean Platelet Vol. 12.4 fl (6.2-12.0); NRBC Flagged by Analyzer 0 % (0-5); POSITIVE DIFFERENTIAL YES; POSITIVE MORPHOLOGY YES; Platelet Count 105 K/mm3 (150-450); RBC Distribution Width CV 13.5 % (11.6-14.6); RBC Distribution Width SD 45.6 fl (35.1-43.9); Red Blood Count 4.62 M/mm3 (4.2-5.4); White Blood Count 20.0 K/mm3 (4.4-11.0)
[2025-04-28 13:13] LABS: Differential Indicated SCAN CRITERIA MET
[2025-04-28 16:00] LABS: AST(SGOT) 29 U/L (<=31); Alanine Aminotransfer ALT/SGPT 16 U/L (<=34); Albumin, Serum 4.5 g/dL (3.4-4.8); Alkaline Phosphatase 73 U/L (35-104); Anion Gap 11 (5-15); BUN 11 mg/dL (4-19); BUN/Creat Ratio 12.4 RATIO (10-20); Calcium,Total 10.0 mg/dL (7.6-11.0); Carbon Dioxide 25.3 mmol/L (21.0-32.0); Chloride 100 mmol/L (98-108); Cholesterol 168 mg/dL (<=200); Globulin 2.8 g/dL (2.2-4.2); Glucose 99 mg/dL (70-99); Low Density Lipoprotein Calc. 87 mg/dL; Potassium 4.7 mmol/L (3.3-5.1); Triglycerides 100 mg/dL; Very Low Density Lipoprotein 20 mg/dL (5-40); Vitamin D,25 Hydroxy 33.9 ng/mL (30-100); cholesterol:hdl ratio screen 2.68
== END | disposition home or self-care (01) ==
LOC: CIMLAB 11:16
PROVIDERS: PCP Internal Medicine; Referring Provider Internal Medicine; Visit Provider Internal Medicine
DX: E78.5 Hyperlipidemia, unspecified (principal); K76.0 Fatty (change of) liver, not elsewhere classified; R73.09 Other abnormal glucose; D50.9 Iron deficiency anemia, unspecified; E55.9 Vitamin D deficiency, unspecified
CPT/HCPCS: 36415; 80053; 80061; 82105; 82306; 83036; 85025